=== PATIENT | female | born 1985 | race Caucasian/White ===

== ENCOUNTER 2016-10-17 22:21 | Inpatient (IN) | payer MEDICAID, SELFPAY ==
[~2016-10-17] VITALS: Ht 160 cm; Wt 56.6 kg
[~2016-10-17 22:21] MED LIST: IBUP80TA PO; NORCOTAB PO; SENO8.6T10 PO; SUBO8MIS SL; TYLE325T5 PO
[2016-10-18 02:20] LABS: BASO % 0.1 % (0.0-1.0); EOS % 0.6 % (0.0-3.0); LARGE UNSTAINED CELL # 0.2 K/mm3 (0.0-0.4); LARGE UNSTAINED CELL % 2.6 % (0.0-4.0); LYMPH # 1.2 K/mm3 (1.5-6.5); LYMPH % 15.8 % (24.0-44.0); MEAN CORPUSCULAR HEMOGLOBIN 22.9 pg (27.0-33.0); MEAN CORPUSCULAR HGB CONC 31.4 g/dl (32.0-36.5); MEAN CORPUSCULAR VOLUME 72.9 fl (80.0-96.0); MONO # 0.4 K/mm3 (0.0-0.8); MONO % 5.1 % (0.0-5.0); NEUTROPHILS # 5.7 K/mm3 (1.8-7.7); NEUTROPHILS % 75.8 % (36.0-66.0); PLATELET COUNT, AUTOMATED 146 k/mm3 (150-450); RED CELL DISTRIBUTION WIDTH 16.4 % (11.5-14.5); WHITE BLOOD COUNT 7.6 K/mm3 (4.0-10.0)
[2016-10-18 02:34] LABS: CONTROL LINE HCG INT CTR LINE PRESENT
[2016-10-18 02:38] LABS: ANION GAP 9 MEQ/L (8-16); BLOOD UREA NITROGEN 17 MG/DL (7-18); CALCIUM LEVEL 8.2 MG/DL (8.5-10.1); CARBON DIOXIDE LEVEL 28 MEQ/L (21-32); CHLORIDE LEVEL 104 MEQ/L (98-107); CREATININE FOR GFR 0.68 MG/DL (0.55-1.02); GLOMERULAR FILTRATION RATE > 60.0 (>60); GLUCOSE, FASTING 84 MG/DL (70-105); SODIUM LEVEL 141 MEQ/L (136-145)
[2016-10-18] MEDS ORDERED: KETOROLAC 30 MG/ML VIAL (J1885) As Ordered ONE (02:45)
[2016-10-18] MEDS ORDERED: ISOVUE-370 76% 100ML VIAL (Q9967) As Ordered ONE (04:06)
[2016-10-18] MEDS ORDERED: NALOXONE INJ 2 MG/2 ML SYRINGE (J2310) As Ordered ONE ×2 (04:26→04:32)
[2016-10-18] MEDS ORDERED: ZOSYN 3.375 GM VIAL (J2543) As Ordered ONE (05:05)
--- NOTE | 2016-10-18 05:20 | REPUSA ---
CLINICAL HISTORY: Posterior wall abscess. TECHNIQUE: Multiple axial CT images were obtained through chest with IV contrast material. MPR johnson l and sagittal sequences were obtained. COMMENTS: Bilateral basilar atelectatic pulmonary changes. There is no evidence of pleural or parenchymal mass. There are no pleural effusions. There is no evid ence of hilar or mediastinal lymphadenopathy. The heart and great vessels are within normal limits. The visualized portions of the liver are of uniform attenuation without mass or defect. There is no i ntra or extrahepatic biliary ductal dilatation. The spleen is unremarkable. The visualized pancreas i s of normal contour and attenuation characteristics. There is no evidence of adrenal mass. The visual ized portions of the kidneys present no abnormalities. The bony structures are free of lytic or blastic lesions. Multilevel degenerative changes are seen in volving the thoracic spine. Scattered calcifications are seen involving the aorta and visualized juaquin r branches compatible with atherosclerosis. No evidence for abnormal enhancement. IMPRESSION: Bilateral basilar atelectatic pulmonary changes. No abscess is seen. Thank you for your kind referral of this patient.
[2016-10-18] MEDS: NS 1,000 ML IV SCH ×3 (05:29→21:11)
[2016-10-18] MEDS ORDERED: ACETAMINOPHEN TAB 650MG DOSE (2X325MG) PO PRN (05:30)
[2016-10-18] MEDS ORDERED: LORazepam 2 MG/ML VIAL (J2060) IV PRN (06:00)
--- NOTE | 2016-10-18 06:29 | EDDOCDS ---
Physician Documentation [facility] Name: Kitty Marinelli Age: 30 yrs Sex: Female : 1985 Arrival Date: 10/17/2016 Time: 22:21 Bed 7 Private MD: Disposition: 10/18/16 05:23 Hospitalization ordered by Whit Barth for Inpatient Admission. Preliminary diagnosis are Cutaneous abscess of chest wall, Cutaneous abscess of left upper limb, Cutaneous abscess of right upper limb, Opioid abuse with intoxication. - Bed requested for [address] - Status is Inpatient Admission. lf1 - Condition is Stable. - Problem is an acute exacerbation. - Symptoms have improved. Historical: - Allergies: no known allergies; - Home Meds: 1. none - PMHx: drug addiction; - PSHx: Gastric Bypass; - Social history: Smoking status: Patient uses tobacco products, heavy tobacco smoker. No barriers to communication noted, The patient speaks fluent Yoruba. - Family history: Not pertinent. - : The pt / caregiver states he / she is not on anticoagulants. Home medication list is obtained from the patient. - Exposure Risk Screening:: None identified. 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 3 in. (160.02 cm) (R); Pain 10/10; 10/18 02:49 BP 103 / 65 (auto/); lf1 02:58 BP 100 / 69 (auto/); lf1 02:58 Pulse 60 MON; Pulse Ox 100% ; lf1 02:59 BP 116 / 9; Pulse 68; Resp 16; Temp 98.0(TE); Pulse Ox 100% on R/A; Pain 0/10; lf1 03:11 BP 103 / 68 (auto/); lf1 03:11 Pulse 70 MON; Pulse Ox 100% ; lf1 03:26 BP 103 / 68 (auto/); lf1 03:26 Pulse 78 MON; Pulse Ox 100% ; lf1 03:41 BP 91 / 56 (auto/); lf1 03:41 Pulse 76 MON; Resp 16; Pulse Ox 99% on R/A; lf1 03:56 BP 88 / 55 (auto/); lf1 03:56 Pulse 68 MON; Pulse Ox 99% ; lf1 04:11 BP 88 / 55 (auto/); lf1 04:11 Pulse 62 MON; lf1 04:55 BP 122 / 79 (auto/); lf1 04:56 Pulse 102 MON; Resp 16; Pain 0/10; lf1 05:35 Pulse 92 MON; Pulse Ox 100% ; lf1 05:36 BP 108 / 63 (auto/); lf1 05:58 Pulse 68 MON; Resp 16; Pulse Ox 100% on R/A; lf1 06:00 BP 114 / 71; Pulse 74; Temp 97.2(TE); lf1 10/17 22:24 Body Mass Index 22.32 (57.15 kg, 160.02 cm) rocio 10/17 22:24 UNABLE TO OBTAIN TEMPATURE DURING INTAKE PROCESS. STTEMPTED THREE TIMES rocio MDM: 10/18 01:19 -Blood Culture (Adults Only), peripheral from different site, or from device/port/PICC mm11 etc. if present ordered. 01:19 ketorolac 30 mg IVP once ordered. mm11 01:19 HIV Screen, Nursing ordered. mm11 01:19 CBC with Diff Ordered. EDMS 01:19 BMP Ordered. EDMS 01:19 CRP Ordered. EDMS 01:19 HCG,Serum Qualitative Ordered. EDMS 01:20 -Blood Culture Ordered. EDMS 01:23 -Blood Culture (Adults Only), peripheral from different site, or from device/port/PICC ml3 etc. if present complete. 01:24 BLOOD CULTURES Ordered. EDMS 02:22 CBC with Diff Reviewed. mm11 02:40 HCG,Serum Qualitative Reviewed. mm11 02:53 BMP Reviewed. mm11 02:53 CRP Reviewed. mm11 02:53 HCG,Serum Qualitative Reviewed. mm11 02:54 CT Chest With Contrast Ordered. EDMS 04:26 naloxone 2 mg IVP once ordered. mm11 04:42 Piperacillin-Tazobactam 3.375 grams IVPB once over 30 mins; dilute in 50mL of NS or D5W mm11 ordered. 04:44 BED REQUEST+ADM ordered. EDMS 04:48 Wound Culture - Other Unlisted Source Ordered. EDMS 05:02 vancomycin (loading dose for pt. wt. 50-59kg) 1250 mg IVPB once ordered. mm11 05:33 Admission / Observation Status ordered. EDMS 05:33 NPO DIET ordered. EDMS 05:39 Financial registration complete. hs2 05:44 [facility] Payment Agreement was scanned into [employer] and attached to record. hs2 05:49 ELECTROCARDIOGRAM ADULT ordered. EDMS 05:50 HIV 1&2 ANTIBODY SCREEN Ordered. EDMS 05:50 HEPATITIS PROFILE Ordered. EDMS Administered Medications: 02:54 Drug: ketorolac 30 mg [ketorolac 30 mg/mL (1 mL) injection solution (1 mL)] Route: IVP; lf1 Site: right upper arm; 04:58 Drug: naloxone 2 mg [naloxone 1 mg/mL injection syringe (2 mL)] Route: IVP; Site: right lf1 hand; 05:18 Drug: Piperacillin-Tazobactam 3.375 grams [piperacillin-tazobactam 3.375 gram lf1 intravenous solution] Route: IVPB; Infused Over: 30 mins; Site: right hand; 06:00 Not Given (MD discretion): vancomycin (loading dose for pt. wt. 50-59kg) 1250 mg IVPB tuan once Signatures: Dispatcher [employer] EDMS Joana Rosales RN RN mcp Lopresti, Mary-Elizabeth, Seedling Puller Unit ml3 Zainab Monroy RN RN lf1 Flakito Peterson, DO mm11 Tamara Kahn,RF ENGINEER RF ENGINEER cp1 Mecca Silveira, Reg Reg hs2 Estefany Chapman RN tuan The chart was reviewed and I authenticate all verbal orders and agree with the evaluation and treatment provided.Corrections: (The following items were deleted from the chart) 10/17 22:35 22:33 Home Meds: acetaminophen-codeine 300-30 mg oral tab 2 tabs every 4 hours mcp [Inactive]; mcp Attachments: 10/18 05:44 [facility] Payment Agreement hs2 MTDD
--- NOTE | 2016-10-18 06:29 | EDDOCDS ---
Nurse's Notes [facility] Name: Kitty Marinelli Age: 30 yrs Sex: Female : 1985 Arrival Date: 10/17/2016 Time: 22:21 Bed 7 Private MD: Diagnosis: Cutaneous abscess of chest wall;Cutaneous abscess of left upper limb;Cutaneous abscess of right upper limb;Opioid abuse with intoxication Presentation: 10/17 22:31 Presenting complaint: Patient states: Abscess on right arm and back from injecting mcp Linda. Adult Sepsis Screening: The patient does not have new or worsening altered mentation. Patient's respiratory rate is less than 22. Systolic blood pressure is greater than 100. Patient has a qSOFA score of 0- Negative Sepsis Screen. Suicide/Homicide risk assessment- the patient denies having any suicidal and/or homicidal ideations and does not present with any other emotional, behavioral or mental health complaints. Status: Patient is not a vp cardiovascular service line or dependent. Transition of care: patient was not received from another setting of care. 22:31 Acuity: PAULO Level 3 [facility] 22:31 Method Of Arrival: Walkin/Carried/Asstd [facility] Triage Assessment: 22:34 General: Appears uncomfortable, Behavior is cooperative. Pain: Location: back and right mcp arm Pain currently is 12 out of 10 on a pain scale. HIV screening NA for this visit Offered previously. Neurological: No deficits noted. Respiratory: Airway is patent Respiratory effort is even, unlabored. Derm: Skin is pink, warm & dry. Abscess located on back and right arm. 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 none - PMHx: drug addiction; - PSHx: Gastric Bypass; - Social history: Smoking status: Patient uses tobacco products, heavy tobacco smoker. No barriers to communication noted, The patient speaks fluent Kazakh. - Family history: Not pertinent. - : The pt / caregiver states he / she is not on anticoagulants. Home medication list is obtained from the patient. - Exposure Risk Screening:: None identified. Screenin/08 00:46 Screening information is obtained from the patient. Fall risk: No risks identified. lf1 Assistance ADL's: requires no assistance with activities of daily living. Nutritional screening: Pt reports recent weight loss related to drug use. 06:08 Abuse/DV Screen: Unable to Assess. Advance Directives: Unable to assess Advance lf1 Directive status due to pt condition. home support is inadequate. Assessment: 00:46 Adult Sepsis Screening: The patient does not have new or worsening altered mentation. lf1 Patient's respiratory rate is less than 22. Systolic blood pressure is greater than 100. Patient has a qSOFA score of 0- Negative Sepsis Screen. General: Appears slender, unkempt, Behavior is anxious. Pain: Location: left scapular area Pain currently is 10 out of 10 on a pain scale. Neurological: Level of Consciousness is awake, alert, Oriented to person, place, time. EENT: No deficits noted. Cardiovascular: Chest pain is denied. Respiratory: Respiratory effort is even, unlabored, Respiratory pattern is regular, Reports shortness of breath pain with respiration. GI: Reports weight loss Denies nausea, vomiting. Derm: abscess to left scapular area, draining copious amounts of yellow/brown drainage. Pt. reports pain with inspiration and shortness of breath. 01:45 General: Appears in no apparent distress, slender, unkempt, Behavior is drowsy. Pain: lf1 Location: left scapular area. Respiratory: Respiratory effort is even, unlabored. GI: Denies nausea, vomiting. 02:34 General: Appears in no apparent distress, slender, unkempt, Behavior is drowsy. Pain: lf1 Location: left scapular area Pain currently is 8 out of 10 on a pain scale. Neurological: Level of Consciousness is awake. Respiratory: Respiratory effort is even, unlabored. GI: Denies nausea, vomiting. : No deficits noted. Derm: 02:59 General: Appears in no apparent distress, Behavior is drowsy. Pain: Denies pain. lf1 Neurological: Level of Consciousness is Pt is arousable to shaking and loud noise, much more sedated than previous assessment. Provider aware. . Respiratory: Respiratory effort is even, unlabored. 03:30 General: Appears slender, unkempt, Behavior is drowsy. General: Provider advised that lf1 pt. appears to be sedated/obtunded and difficult to arouse. Vitals stable at this time. Pt. to have CT scan and then re- evaluate. . Neurological: Level of Consciousness is obtunded. 04:00 General: Center Machine Set Up Operator advised that pt. appears obtunded, level of consciousness decreased lf1 while in department, blood pressure decreased, pt. difficult to arouse. Belongings searched by two nurses to determine if pt. had substances she may have taken while in department. Numerous baggie's with white and brown powder residue found in pt. purse. . 04:58 General: Appears slender, unkempt, Behavior is drowsy. Pain: Denies pain. Neurological: lf1 Level of Consciousness is awake, alert. Respiratory: Respiratory effort is even, unlabored. GI: Denies nausea. Derm: abscess to left scapular area. 05:59 General: Appears in no apparent distress, Behavior is restless. Neurological: lf1 Respiratory: Respiratory effort is even, unlabored. Derm: abscess to left scapular area. 06:08 Adult Sepsis Screening: Patient has new or worsening altered mentation (1 point). lf1 Patient's respiratory rate is less than 22. Systolic blood pressure is greater than 100. Patient has a qSOFA score of 1- Negative Sepsis Screen. General: Appears slender, unkempt, Behavior is restless. Pain: Denies pain. Neurological: Level of Consciousness is obeys commands. EENT: No deficits noted. Cardiovascular: Rhythm is regular Chest pain is denied. Respiratory: Respiratory effort is even, unlabored. GI: Denies nausea, vomiting. Derm: abscess to left scapular area, multiple swollen red areas to BL UE. Pt with track sanders from drug use to BL UE. Vital Signs: 10/17 22:24 BP 107 / 72; Pulse 112; Resp 18; Pulse Ox 100% on R/A; Weight 57.15 kg (R); Height 5 rocio ft. 3 in. (160.02 cm) (R); Pain 10/10; 10/18 02:49 BP 103 / 65 (auto/); lf1 02:58 BP 100 / 69 (auto/); lf1 02:58 Pulse 60 MON; Pulse Ox 100% ; lf1 02:59 BP 116 / 9; Pulse 68; Resp 16; Temp 98.0(TE); Pulse Ox 100% on R/A; Pain 0/10; lf1 03:11 BP 103 / 68 (auto/); lf1 03:11 Pulse 70 MON; Pulse Ox 100% ; lf1 03:26 BP 103 / 68 (auto/); lf1 03:26 Pulse 78 MON; Pulse Ox 100% ; lf1 03:41 BP 91 / 56 (auto/); lf1 03:41 Pulse 76 MON; Resp 16; Pulse Ox 99% on R/A; lf1 03:56 BP 88 / 55 (auto/); lf1 03:56 Pulse 68 MON; Pulse Ox 99% ; lf1 04:11 BP 88 / 55 (auto/); lf1 04:11 Pulse 62 MON; lf1 04:55 BP 122 / 79 (auto/); lf1 04:56 Pulse 102 MON; Resp 16; Pain 0/10; lf1 05:35 Pulse 92 MON; Pulse Ox 100% ; lf1 05:36 BP 108 / 63 (auto/); lf1 05:58 Pulse 68 MON; Resp 16; Pulse Ox 100% on R/A; lf1 06:00 BP 114 / 71; Pulse 74; Temp 97.2(TE); lf1 10/17 22:24 Body Mass Index 22.32 (57.15 kg, 160.02 cm) rocio 10/17 22:24 UNABLE TO OBTAIN TEMPATURE DURING INTAKE PROCESS. STTEMPTED THREE TIMES rocio Vitals: 22:24 Log In Time: October 17, 2016 at 22:24. rocio 10/18 02:44 HIV Screen Result: Negative. 1 ED Course: 10/17 22:23 Patient visited by Estrellita Ferreira PCA. rocio 22:23 Patient moved to Waiting rocio 22:25 Patient moved to Pre RCE rocio 22:29 Patient moved to TR7 cz 22:31 Patient moved to Pre RCE mcp 22:32 Triage Initiated mcp 22:35 Patient visited by Jaona Rosales RN. mcp 22:40 Patient moved to TR8 cz 22:40 Patient moved to Pre RCE cz 10/18 00:27 Patient moved to Oct 00:46 The patient / caregiver is instructed regarding the plan of care and ED course. lf1 00:51 Patient visited by Estrellita Ferreira PCA. rocio 01:00 Inserted saline lock: 20 gauge in right upper arm. lf1 01:07 Flakito Peterson DO is Attending Physician. mm11 01:07 Patient visited by Flakito Peterson DO. mm11 01:17 Patient visited by Flakito Peterson DO. mm11 02:23 Patient visited by Germain Ly PCA. kb5 02:35 Patient visited by Zainab Monroy RN. lf1 02:44 Patient visited by Zainab Monroy RN. lf1 03:03 Patient visited by Zainab Monroy RN. lf1 04:15 Discontinued IV lock intact, bleeding controlled, pressure dressing applied, No lf1 redness/swelling at site. 04:26 Patient visited by Flakito Peterson DO. mm11 04:45 Missed attempts: 22 gauge in right hand. lf1 04:55 Whit Barth professor of public administration. ys2 04:57 Wound Culture - Other Unlisted Source Sent. lf1 05:02 Patient visited by Zainab Monroy RN. lf1 05:22 Whit Barth is Hospitalizing Provider. mm11 05:44 [facility] Payment Agreement was scanned into [employer] and attached to record. hs2 05:45 CT Chest With Contrast Returned. EDMS 06:08 No procedures done that require assistance. lf1 Administered Medications: 02:54 Drug: ketorolac 30 mg [ketorolac 30 mg/mL (1 mL) injection solution (1 mL)] Route: IVP; 1 Site: right upper arm; 04:58 Drug: naloxone 2 mg [naloxone 1 mg/mL injection syringe (2 mL)] Route: IVP; Site: right lf1 hand; 05:18 Drug: Piperacillin-Tazobactam 3.375 grams [piperacillin-tazobactam 3.375 gram [facility] intravenous solution] Route: IVPB; Infused Over: 30 mins; Site: right hand; 06:00 Not Given (MD discretion): vancomycin (loading dose for pt. wt. 50-59kg) 1250 mg IVPB tuan once Order Results: Lab Order: CBC with Diff; SPEC'M 10/18/16 02:07 Test: WHITE BLOOD COUNT; Value: 7.6; Range: 4.0-10.0; Units: K/mm3; Status: F Test: RED BLOOD COUNT; Value: 4.28; Range: 4.00-5.40; Units: M/mm3; Status: F Test: HEMOGLOBIN; Value: 9.8; Range: 12.0-16.0; Abnormal: Below low normal; Units: g/dl; Status: F Test: HEMATOCRIT; Value: 31.2; Range: 36.0-47.0; Abnormal: Below low normal; Units: %; Status: F Test: MEAN CORPUSCULAR VOLUME; Value: 72.9; Range: 80.0-96.0; Abnormal: Below low normal; Units: fl; Status: F Test: MEAN CORPUSCULAR HEMOGLOBIN; Value: 22.9; Range: 27.0-33.0; Abnormal: Below low normal; Units: pg; Status: F Test: MEAN CORPUSCULAR HGB CONC; Value: 31.4; Range: 32.0-36.5; Abnormal: Below low normal; Units: g/dl; Status: F Test: RED CELL DISTRIBUTION WIDTH; Value: 16.4; Range: 11.5-14.5; Abnormal: Above high normal; Units: %; Status: F Test: PLATELET COUNT, AUTOMATED; Value: 146; Range: 150-450; Abnormal: Below low normal; Units: k/mm3; Status: F Test: NEUTROPHILS %; Value: 75.8; Range: 36.0-66.0; Abnormal: Above high normal; Units: %; Status: F Test: LYMPH %; Value: 15.8; Range: 24.0-44.0; Abnormal: Below low normal; Units: %; Status: F Test: MONO %; Value: 5.1; Range: 0.0-5.0; Abnormal: Above high normal; Units: %; Status: F Test: EOS %; Value: 0.6; Range: 0.0-3.0; Units: %; Status: F Test: BASO %; Value: 0.1; Range: 0.0-1.0; Units: %; Status: F Test: LARGE UNSTAINED CELL %; Value: 2.6; Range: 0.0-4.0; Units: %; Status: F Test: NEUTROPHILS #; Value: 5.7; Range: 1.8-7.7; Units: K/mm3; Status: F Test: LYMPH #; Value: 1.2; Range: 1.5-6.5; Abnormal: Below low normal; Units: K/mm3; Status: F Test: MONO #; Value: 0.4; Range: 0.0-0.8; Units: K/mm3; Status: F Test: EOS #; Value: 0.0; Range: 0.0-0.50; Units: K/mm3; Status: F Test: BASO #; Value: 0.0; Range: 0.0-0.2; Units: K/mm3; Status: F Test: LARGE UNSTAINED CELL #; Value: 0.2; Range: 0.0-0.4; Units: K/mm3; Status: F Lab Order: BMP; SPEC'M 10/18/16 02:07 Test: GLUCOSE, FASTING; Value: 84; Range: 70-105; Units: MG/DL; Status: F Test: BLOOD UREA NITROGEN; Value: 17; Range: 7-18; Units: MG/DL; Status: F Test: CREATININE FOR GFR; Value: 0.68; Range: 0.55-1.02; Units: MG/DL; Status: F Test: SODIUM LEVEL; Range: 136-145; Units: MEQ/L; Status: I Test: POTASSIUM SERUM; Range: 3.5-5.1; Units: MEQ/L; Status: I Test: CHLORIDE LEVEL; Range: 98-107; Units: MEQ/L; Status: I Test: CARBON DIOXIDE LEVEL; Range: 21-32; Units: MEQ/L; Status: I Test: ANION GAP; Range: 8-16; Units: MEQ/L; Status: I Test: CALCIUM LEVEL; Range: 8.5-10.1; Units: MG/DL; Status: I Test: GLOMERULAR FILTRATION RATE; Value: > 60.0; Range: >60; Status: F Test: SODIUM LEVEL; Value: 141; Range: 136-145; Units: MEQ/L; Status: F Test: POTASSIUM SERUM; Value: 3.0; Range: 3.5-5.1; Abnormal: Below low normal; Units: MEQ/L; Status: F Test: CHLORIDE LEVEL; Value: 104; Range: 98-107; Units: MEQ/L; Status: F Test: CARBON DIOXIDE LEVEL; Value: 28; Range: 21-32; Units: MEQ/L; Status: F Test: ANION GAP; Value: 9; Range: 8-16; Units: MEQ/L; Status: F Test: CALCIUM LEVEL; Value: 8.2; Range: 8.5-10.1; Abnormal: Below low normal; Units: MG/DL; Status: F Test Note: ; Units are mL/min/1.73 m2 Chronic Kidney Disease Staging per NKF: Stage I & II GFR >=60 Normal to Mildly Decreased Stage III GFR 30-59 Moderately Decreased Stage IV GFR 15-29 Severely Decreased Stage V GFR <15 Very Little GFR Left ESRD GFR <15 on PAINTING 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 MPR johnson; l and sagittal sequences were obtained.; COMMENTS:; Bilateral basilar atelectatic pulmonary changes.; There is no evidence of pleural or parenchymal mass. There are no pleural effusions. There is no evid; ence of hilar or mediastinal lymphadenopathy. The heart and great vessels are within normal limits.; The visualized portions of the liver are of uniform attenuation without mass or defect. There is no i; ntra or extrahepatic biliary ductal dilatation. The spleen is unremarkable. The visualized pancreas i; s of normal contour and attenuation characteristics. There is no evidence of adrenal mass. The visual; ized portions of the kidneys present no abnormalities.; The bony structures are free of lytic or blastic lesions. Multilevel degenerative changes are seen in; volving the thoracic spine. Scattered calcifications are seen involving the aorta and visualized juaquin; r branches compatible with atherosclerosis.; No evidence for abnormal enhancement.; IMPRESSION:; Bilateral basilar atelectatic pulmonary changes.; No abscess is seen.; Thank you for your kind referral of this patient.; ; ; Outcome: 05:23 Decision to Hospitalize by Provider. mm11 06:08 Discharge Assessment: Patient awake, alert and oriented x 3. No cognitive and/or lf1 functional deficits noted. Patient verbalized understanding of disposition instructions. Admitted to Med/Surg accompanied by nurse, accompanied by tech, via stretcher, with chart. Condition: unchanged. CT Study completed. Property belongs bagged and given to staff. 06:27 Discharge Assessment: patient administered narcotics - no. The following High Risk lf1 Discharge criteria are identified: None. Admitted to Med/Surg. 06:27 Patient left the ED. lf1 Signatures: Dispatcher [employer] EDMS Estefany Chapman RN RN jan Peters, Mary, RN RN Henok Camp RN RN cz Bancroft, Kristopher, DRILLER'S ASSISTANT DRILLER'S ASSISTANT surjit5 Zaniab Monroy RN RN lf1 Flakito Peterson, DO mm11 Estrellita Ferreira, DRILLER'S ASSISTANT DRILLER'S ASSISTANT rocio Whit Barth ys2 Mecca Silveira, Reg Reg hs2 Corrections: (The following items were deleted from the chart) 10/17 22:35 22:33 Home Meds: acetaminophen-codeine 300-30 mg oral tab 2 tabs every 4 hours mcp [Inactive]; mcp MTDD
[2016-10-18 06:30] VITALS: BP 125/63
[2016-10-18] MEDS: HEPARIN SOD (PORCINE) 5000 UNITS/ML VIAL SC SCH ×3 (09:41→21:09)
--- NOTE | 2016-10-18 09:43 | HPE ---
DATE OF ADMISSION: 10/18/2016 ATTENDING PHYSICIAN: Whit Barth MD PRIMARY CARE PHYSICIAN: The patient does not have primary care physician. CHIEF COMPLAINT: Intravenous (IV) drug use, altered mental status, abscess. HISTORY OF PRESENT ILLNESS: Ms. Marinelli is a 30-year-old female with multiple past medical history who presented due to experiencing severe pain in the upper extremity, as well as posterior of the left shoulder due to possible abscess. The patient has an extended history of IV drug use. At the time when the patient was at the emergency room (ER), the patient used the IV lock site to inject herself. At the time of visit, the patient was lethargic and not able to answer questions. At the ER, the patient received one dose of ketorolac for pain control. According to the report, the patient has been using heroin. The patient's handbag was confiscated, and the drugs have been removed. However, the patient has a sitter at the room. ALLERGIES: No known allergies. HOME MEDICATIONS: - Tylenol 650 mg by mouth every 4 hours as needed pain - Compton two tablets by mouth every 6 hours as needed severe pain - Compton one tablet by mouth every 4 hours as needed moderate pain - Suboxone 1.5 mg sublingual daily - Senokot S one tablet by mouth twice a day as needed constipation - ibuprofen 800 mg by mouth every 6 hours as needed pain PAST MEDICAL HISTORY: 1. IV drug use. 2. Opioid addiction. 3. History of gastric bypass. 4. History of miscarriage. 5. History of biliary colic and gallstone. PAST SURGICAL HISTORY: Gastric bypass. SOCIAL HISTORY: Cannot be obtained due to the patient being lethargic and altered mental status. FAMILY HISTORY: Cannot be obtained due to the patient being lethargic and altered mental status. REVIEW OF SYSTEMS: Cannot be obtained due to the patient being lethargic and altered mental status. PHYSICAL EXAMINATION: VITAL SIGNS: Blood pressure 107/72, pulse 112, respiratory rate 18, temperature 98, pulse oximetry 100% on room air, weight 57.15 kg, height 160.02, body mass index (BMI) 22.32. GENERAL APPEARANCE: The patient is lethargic. The patient is not responding to vocal stimuli. However, the patient responded to the pain stimuli. HEENT: Normocephalic, atraumatic. Pupils are dilated. Oral mucosa is moist. NECK: Soft, supple. HEART: Tachycardia. Normal S1, S2. ABDOMEN: Soft. Positive bowel sounds in all quadrants. LUNGS: Clear to auscultation bilaterally. Good air movement. EXTREMITIES: No lower extremity edema. The patient has multiple lesions in her upper extremities, as well as abscess-type lesions, and the patient has one abscess which is draining on the posterior surface of her left shoulder. NEUROLOGICAL: Cranial nerves examination could not be done due to the patient being lethargic. LABORATORY DATA: White blood cells 7.6, red blood cells 4.28, hemoglobin 9.8, hematocrit 31.2, MCV 72.9, MCH 22.9, MCHC 31.4, RDW 16.4, platelet count 146, neutrophil percentage 75.8, lymphocyte percentage 15.8, monocyte percentage 5.1, eosinophil percentage 0.6, basophil percentage 0.1, leukocyte percentage 2.6. Sodium 141, potassium 3, chloride 104, carbon dioxide 28, anion gap 9, BUN 17, creatinine 0.67, glomerular filtration rate more than 60, fasting glucose 84, calcium 8.2, C-reactive protein 14.5, hCG negative. Blood culture is pending. Wound culture is pending. Chest CT with contrast, which shows bilateral basilar atelectatic pulmonary changes. No abscess is seen. ASSESSMENT AND PLAN: 1. Drug overdose. The patient has a long history of IV drug use. At this time, the patient is lethargic secondary to IV drug use. The patient's belonging has been searched, and her drugs have been removed. We have ordered a sitter in the room. We will continue monitoring the patient. Will make the patient nothing by mouth. For agitation, we have started the patient on normal saline at a rate of 100 mL per hour. The patient received two doses of Narcan 2 mg. However, the patient continues to be lethargic. For agitation, we have started the patient on Ativan 2 mg every 2 hour as needed IV. 2. Abscess. The patient has multiple abscesses in her upper extremities, as well as in her left posterior shoulder, which has been drained by ER and is sent for culture, as well as gram stain. At this time, we have started the patient on vancomycin and Zosyn. Blood culture is pending at this time. Also, we are checking the patient for hepatitis B, A, and C, as well as HIV, and the results are pending. 3. Opiate addiction. This is a chronic issue. 4. History of gastric bypass. CT of abdomen did not show any obstruction. At this time, the patient is stable. However, we will make the patient nothing by mouth due to the patient being lethargic to prevent aspiration. The patient has IV fluid. 5. Recent history of miscarriage in February 2015. This is a chronic issue. 6. History of biliary colic and gallstone. The CT that we had ordered did not show any concern regarding gallstone at this time. 7. Deep venous thrombosis (DVT) prophylaxis. The patient is on heparin 5000 units subcutaneous every 8. My preceptor for this patient encounter was Whit Barth MD. The preceptor was physically present in the building during the encounter and was fully available. As needed, all aspects of the patient interview, examination, medical decision making process, and medical care plan development were reviewed and approved by the preceptor. The preceptor is aware and concurs with the plan as stated in the body of this note and will attest to such by his/her cosignature.
[2016-10-18] MEDS: MEROPENEM INJ 2 GM in NS 100 ML IV SCH ×2 (10:21→17:44)
[2016-10-18] MEDS ORDERED: VANCOMYCIN HCL 500 MG in D5W MINI-BAG PLUS 100 ML IV ONE (11:00)
[2016-10-18 14:00] VITALS: BP 125/63
[2016-10-18] MEDS: VANCOMYCIN HCL 1,000 MG, VIAL MATE ADAPTER 1 EACH in D5W 250 ML IV SCH ×2 (14:21→15:41)
[2016-10-18] MEDS ORDERED: POTASSIUM CHLORIDE 10 MEQ SR TABLET PO ONE (15:15)
[2016-10-18] MEDS ORDERED: ONDANSETRON 4MG/2ML VIAL (J2405) IV PRN (15:15)
[2016-10-18] MEDS: FOLIC ACID 1 MG TAB PO SCH (15:39)
[2016-10-18] MEDS: METHADONE 5 MG TAB (S0109) PO SCH ×2 (15:40→21:10)
[2016-10-18] MEDS: THIAMINE 100 MG TAB PO SCH (15:41)
[2016-10-18] MEDS: NICOTINE 21MG/24HR 1 EA TRANSDERMAL TD SCH (15:41)
[2016-10-18] MEDS: LORazepam 2 MG TAB PO PRN (16:19)
--- NOTE | 2016-10-18 18:58 | CR ---
DATE OF CONSULTATION: 10/18/2016 REASON FOR CONSULTATION: Left upper back abscess. HISTORY OF PRESENT ILLNESS: The patient is a 30-year-old female with a history of intravenous (IV) drug abuse, has been to the emergency room recently for pain issues, had an IV site in place and used this for her heroin injections on her left arm. However, her abscess had developed on her left posterior shoulder and was "separate from this area." This has been draining for the last 24-36 hours and "it is better today than it was yesterday" and is less uncomfortable today, although she requires significant pain medications. PAST MEDICAL HISTORY: Her past medical history is significant for IV drug abuse, opioid addiction, history of gastric bypass, history of miscarriage, history of biliary colic and gallstones. MEDICATIONS: Include Tylenol, Kaufman, Suboxone, Senokot and ibuprofen. PHYSICAL EXAMINATION: Physical exam reveals a cachectic-appearing 30-year-old who looks much older than stated age. Her exam was limited to her back where she has an abscess that is draining adequately in her left upper back. There are three areas that are draining, all draining some purulent fluid. There is no significant cellulitis in this area with compression around the area. There is somewhat of an underlying pocket that seems to be decompressing adequately. She is tender enough that injection/debridement of this here at the bedside with be reasonable, and typically this would be treated as an outpatient with antibiotics and I would see her in the office for additional treatments, but given her high narcotic use, that it is reasonable to have her hospitalized for antibiotics at this point. IMPRESSION AND PLAN: The patient has an infection/abscess left upper back. May have been an infected sebaceous cyst, but at this point seems to be adequately draining. No need for further draining at this time. We will make some additional recommendations for dressing changes if it does not seem to be improving substantially by tomorrow. Otherwise, irrigating this with some peroxide on a daily basis will be reasonable after discharge with a dry dressing over the area, possibly warm soaks to help this decompress as well.
--- NOTE | 2016-10-18 21:39 | PHACANCOPD ---
PHARMACY VANCOMYCIN DOSING Pt Demographics Demographics Patient Age:30 , Weight:56.600 , Gender: female Adjusted Body Weight Date: 10/18/16, Adjusted Body Weight: Kg Events Past 24 Hours Events Past 24 Hours: NO: Change in CrCl, Dialysis, Diuretic Therapy, Elevation in WBC, Fever, Other, Pending Diagnostics, Pending Procedures Vancomycin Vancomycin indication: skin abscess Vancomycin Target Ranges: 15-20 mcg/ml Vancomycin Load Y/N: Yes Load Dose Date Time Vancomycin Load Dose: 1500mg Date: 10/18/16 Time: ~11:00 Vancomycin Dose Date: 10/18/16. Current Vancomycin Dose: [1g IV q8h @14] Intermittent Dosing?: No Labs Labs Item Value Date Time White Blood Count 7.6 K/mm3 10/18/16 0207 Creatinine 0.68 MG/DL 10/18/16 0207 C-Reactive Protein, Quantitative 14.50 MG/DL H 10/18/16 0207 Micro Microbiology 10/18/16 Blood Culture, Received Pending 10/18/16 Blood Culture, Received Pending 10/18/16 Wound Culture, Worksheet Pending Creatinine Clearance Date:10/18/16. Creatinine Clearance: [>100 ml/min]. Pending Labs Vanco trough scheduled 10/19 @13:00 Assessment and Plan Maintaining Current Dose?: Yes Reason for dose change: No Dose Change Pharmacist Note Pharmacist Note Date: 10/18/16. Pharmacist note: pt was admitted for an upper back abscess, likely an infected cyst, for which she was started on Meropenem and Vancomycin . Pt is also an IVDU, she used her IV site to inject heroin in the ER this morning. She has not been on vancomycin at our facility in the past and does not have a hx of MRSA. I have given her a 1500mg load and started 1g IV q8h. I have ordered a trough before the 4th dose due to her small/cachetic state. Blood and wound cultures are pending. We will continue to monitor. Bulmaro Mcrae Pharm.D. Oct 18, 2016 21:39
[2016-10-18 22:00] VITALS: BP 119/62
[2016-10-19] MEDS: MEROPENEM INJ 2 GM in NS 100 ML IV SCH ×3 (00:55→18:59)
[2016-10-19] MEDS: LORazepam 2 MG TAB PO PRN ×4 (00:55→22:24)
[2016-10-19] MEDS: HEPARIN SOD (PORCINE) 5000 UNITS/ML VIAL SC SCH ×4 (05:22→22:00)
[2016-10-19] MEDS: VANCOMYCIN HCL 1,000 MG, VIAL MATE ADAPTER 1 EACH in D5W 250 ML IV SCH ×3 (05:22→21:48)
[2016-10-19 06:00] VITALS: BP 112/56
[2016-10-19 07:17] LABS: MEAN CORPUSCULAR HEMOGLOBIN 22.9 pg (27.0-33.0); MEAN CORPUSCULAR HGB CONC 31.4 g/dl (32.0-36.5); MEAN CORPUSCULAR VOLUME 72.9 fl (80.0-96.0); PLATELET COUNT, AUTOMATED 197 k/mm3 (150-450); RED CELL DISTRIBUTION WIDTH 16.3 % (11.5-14.5); WHITE BLOOD COUNT 5.6 K/mm3 (4.0-10.0)
[2016-10-19 07:37] LABS: MICROCYTOSIS 2+
[2016-10-19 07:47] LABS: ALBUMIN 2.3 GM/DL (3.2-5.2); ALBUMIN/GLOBULIN RATIO 0.72 (1.00-1.93); ALKALINE PHOSPHATASE 60 U/L (45-117); ALT/SGPT 16 U/L (12-78); ANION GAP 7 MEQ/L (8-16); AST/SGOT 30 U/L (15-37); BILIRUBIN,TOTAL 0.4 MG/DL (0.2-1.0); BLOOD UREA NITROGEN 19 MG/DL (7-18); CALCIUM LEVEL 7.6 MG/DL (8.5-10.1); CARBON DIOXIDE LEVEL 27 MEQ/L (21-32); CHLORIDE LEVEL 110 MEQ/L (98-107); CREATININE FOR GFR 0.75 MG/DL (0.55-1.02); GLOMERULAR FILTRATION RATE > 60.0 (>60); GLUCOSE, FASTING 93 MG/DL (70-105); POTASSIUM SERUM 3.5 MEQ/L (3.5-5.1); SODIUM LEVEL 144 MEQ/L (136-145); TOTAL PROTEIN 5.5 GM/DL (6.4-8.2)
[2016-10-19 08:59] LABS: CONTROL LINE INT CTR LINE PRESENT; HIV SCRN NEGATIVE (NEGATIVE); HIV SCRN1 NEGATIVE (NEGATIVE)
[2016-10-19] MEDS: NICOTINE 21MG/24HR 1 EA TRANSDERMAL TD SCH (09:20)
[2016-10-19] MEDS: FOLIC ACID 1 MG TAB PO SCH (09:21)
[2016-10-19] MEDS: THIAMINE 100 MG TAB PO SCH (09:21)
[2016-10-19] MEDS: METHADONE 5 MG TAB (S0109) PO SCH ×4 (09:22→21:57)
--- NOTE | 2016-10-19 09:48 | IPN ---
DATE OF DICTATION: 10/18/2016 Ms. Marinelli was initially responsive only to painful stimuli. When I saw her later in the day around 1:30, she was more awake requesting food. Says that she would like to pursue inpatient rehabilitation. Says that she has relapsed after being clean for some time. Is worried about HIV and hepatitis C. Temperature 97.4, pulse 70, respirations 18, blood pressure 125/63, 99% on room air. Input and output notable for a negative fluid status -200. She is awake, appropriately interactive. Seems anxious. Extremities are tacky. Neck is supple. There is a draining lesion on her left posterior shoulder from which has expressed approximately 100 mL of mucoid drainage. Heart: Regular rate and rhythm, I appreciate no murmur. Abdomen: Soft, doughy, nontender. White cell count 7.6, potassium 3.0. ASSESSMENT: This is a 30-year-old with left posterior shoulder abscess and heroine overdose. PLAN: 1. Abscess. Patient on broad spectrum antibiotics, awaiting wound culture from that as well as blood cultures. I suspect blood cultures to be negative. Continue antibiotics as ordered. 2. Patient has ongoing history of heroine use with relapse. Would like inpatient rehabilitation. Is worried about her withdrawal symptoms. At this time, I am starting a low dose of methadone as well as Ativan as well as Zofran for symptomatic relief of nausea. Also starting some vitamin supplementation. 3. The patient is a smoker. I have ordered a nicotine patch. 4. Patient has a history of gastric bypass. She has no abdominal pain and diet can be advanced. 5. Deep venous thrombosis (DVT) prophylaxis ordered.
[2016-10-19] MEDS: NS 1,000 ML IV SCH (11:29)
[2016-10-19] MEDS ORDERED: KETOROLAC 30 MG/ML VIAL (J1885) IV PRN (13:00)
[2016-10-19 14:00] VITALS: BP 115/74
--- NOTE | 2016-10-19 15:19 | PHACANCOPD ---
PHARMACY VANCOMYCIN DOSING Pt Demographics Demographics Patient Age:30 , Weight:56.600 , Gender: female Adjusted Body Weight Date: 10/18/16, Adjusted Body Weight: Kg Vancomycin Vancomycin indication: skin abscess Vancomycin Target Ranges: 15-20 mcg/ml Vancomycin Load Y/N: Yes Load Dose Date Time Vancomycin Load Dose: 1500mg Date: 10/18/16 Time: ~11:00 Vancomycin Dose Date: 10/18/16. Current Vancomycin Dose: [1g IV q8h @14] Intermittent Dosing?: No Labs Micro Microbiology 10/18/16 Blood Culture - Preliminary, Resulted No growth after 24 hours . All specim... 10/18/16 Blood Culture - Preliminary, Resulted No growth after 24 hours . All specim... 10/18/16 Wound Culture, Worksheet Pending Creatinine Clearance Date:10/18/16. Creatinine Clearance: [>100 ml/min]. Pending Labs Vanco trough scheduled 10/19 @13:00 Assessment and Plan Maintaining Current Dose?: Yes Reason for dose change: No Dose Change Pharmacist Note Pharmacist Note 10/19/16: Vanco trough today resulted @ 9.4. Upon review, two 1g doses were given blmp-[id number], 1 hour apart vs the Q8H schedule - with the next 1g dose given ~ 15 hours later. Therefore, this level is not reflective of a true trough. I will schedule another trough to be drawn tomorrow 10/20/16 @ 1300. We will continue to monitor and make further dose adjustments as needed. Date: 10/18/16. Pharmacist note: pt was admitted for an upper back abscess, likely an infected cyst, for which she was started on Meropenem and Vancomycin . Pt is also an IVDU, she used her IV site to inject heroin in the ER this morning. She has not been on vancomycin at our facility in the past and does not have a hx of MRSA. I have given her a 1500mg load and started 1g IV q8h. I have ordered a trough before the 4th dose due to her small/cachetic state. Blood and wound cultures are pending. We will continue to monitor. JOYCE IBANEZ PHARMACY Oct 19, 2016 15:19
--- NOTE | 2016-10-19 17:21 | IPN ---
DATE: 10/19/2016 Ms. Marinelli is complaining of some discomfort in her left shoulder. No chest pain. No shortness of breath. Does feel somewhat anxious. Temperature is 97.5, pulse 78, respiratory rate 18, blood pressure 112/56, 99% on room air. Input and output notable for a positive fluid balance of 450, 1 liter of urine out yesterday. She is awake, appropriately interactive. Pupils are mid range and reactive. Mucous membranes are moist. Neck is supple. There is no piloerection. There is no tremor. Heart has regular rate and rhythm, not tachycardic. Abdomen is soft, doughy, nontender. Left shoulder wound is completely dressed. Hypoactive bowel sounds. White cell count 5.6, hemoglobin 10.1, platelets of 97. BUN 19, creatinine 0.75, C-reactive protein is improved to 6.52. ASSESSMENT: This is a 30-year-old with left posterior shoulder abscess and heroin overdoses, currently is in withdrawal. PLAN: 1. Abscess. The patient is on broad spectrum antibiotics, awaiting wound culture, which is still pending. I have discussed this case in person with Dr. Pathak, who is following. Antibiotics are continued as ordered. 2. The patient has an ongoing history of heroin use with relapse. She did take an unintentional overdose in the emergency department. She does currently have a sitter. She is on methadone, which can likely be weaned tomorrow, as well as Ativan for withdrawal. She has been receiving Zofran for nausea as needed. I did start vitamin supplementation. 3. The patient is a smoker and currently has a nicotine patch on. 4. The patient has a history of gastric bypass. 5. The patient has appropriate deep vein thrombosis (DVT) prophylaxis. Plan is for possible placement in an inpatient rehabilitation program if that is at all feasible, otherwise she has been following with [facility], and I discussed the case with Aristeo Espino at [facility], [phone]. Dr. Espino has no record of caring for this patient.
[2016-10-19 22:00] VITALS: BP 114/72
[2016-10-20] MEDS: NS 1,000 ML IV SCH ×3 (02:13→17:29)
[2016-10-20] MEDS: MEROPENEM INJ 2 GM in NS 100 ML IV SCH ×2 (02:13→11:15)
[2016-10-20] MEDS: HEPARIN SOD (PORCINE) 5000 UNITS/ML VIAL SC SCH ×3 (05:48→21:53)
[2016-10-20] MEDS: VANCOMYCIN HCL 1,000 MG, VIAL MATE ADAPTER 1 EACH in D5W 250 ML IV SCH ×3 (05:53→21:54)
[2016-10-20 06:00] VITALS: BP 113/68
[2016-10-20 06:53] LABS: BASO % 0.2 % (0.0-1.0); EOS % 0.7 % (0.0-3.0); LARGE UNSTAINED CELL # 0.1 K/mm3 (0.0-0.4); LARGE UNSTAINED CELL % 2.5 % (0.0-4.0); LYMPH # 1.6 K/mm3 (1.5-6.5); LYMPH % 28.4 % (24.0-44.0); MEAN CORPUSCULAR HEMOGLOBIN 23.4 pg (27.0-33.0); MEAN CORPUSCULAR HGB CONC 31.7 g/dl (32.0-36.5); MEAN CORPUSCULAR VOLUME 73.7 fl (80.0-96.0); MONO # 0.3 K/mm3 (0.0-0.8); MONO % 5.9 % (0.0-5.0); NEUTROPHILS # 3.5 K/mm3 (1.8-7.7); NEUTROPHILS % 62.3 % (36.0-66.0); PLATELET COUNT, AUTOMATED 207 k/mm3 (150-450); RED CELL DISTRIBUTION WIDTH 16.3 % (11.5-14.5); WHITE BLOOD COUNT 5.6 K/mm3 (4.0-10.0)
[2016-10-20 07:35] LABS: ALBUMIN 2.2 GM/DL (3.2-5.2); ALBUMIN/GLOBULIN RATIO 0.65 (1.00-1.93); ALKALINE PHOSPHATASE 57 U/L (45-117); ALT/SGPT 12 U/L (12-78); ANION GAP 8 MEQ/L (8-16); AST/SGOT 26 U/L (15-37); BILIRUBIN,TOTAL 0.3 MG/DL (0.2-1.0); BLOOD UREA NITROGEN 12 MG/DL (7-18); CALCIUM LEVEL 7.5 MG/DL (8.5-10.1); CARBON DIOXIDE LEVEL 27 MEQ/L (21-32); CHLORIDE LEVEL 109 MEQ/L (98-107); CREATININE FOR GFR 0.64 MG/DL (0.55-1.02); GLOMERULAR FILTRATION RATE > 60.0 (>60); GLUCOSE, FASTING 81 MG/DL (70-105); POTASSIUM SERUM 3.2 MEQ/L (3.5-5.1); SODIUM LEVEL 144 MEQ/L (136-145); TOTAL PROTEIN 5.6 GM/DL (6.4-8.2)
--- NOTE | 2016-10-20 07:39 | ECGEPIP ---
Stationary ECG Study [facility] Test Date: 2016-10-18 Pat Name: CRISTY FORTUNE Department: Room: [place] [address] Gender: F Land[place] Scaler: : 1985 Requested By: EVENS MADDOX Order Number: [id number] Reading MD: Chintan Shrestha Measurements Intervals Chana Rate: 56 P: 77 MA: 138 QRS: 29 QRSD: 98 T: 51 QT: 453 QTc: 438 Interpretive Statements SINUS BRADYCARDIA Electronically Signed On 10-20-2016 7:38:29 EST by Chintan Shrestha
[2016-10-20] MEDS: NICOTINE 21MG/24HR 1 EA TRANSDERMAL TD SCH (08:41)
[2016-10-20] MEDS: LORazepam 2 MG TAB PO PRN ×2 (08:42→14:40)
[2016-10-20] MEDS: FOLIC ACID 1 MG TAB PO SCH (08:42)
[2016-10-20] MEDS: METHADONE 5 MG TAB (S0109) PO SCH ×3 (08:42→21:53)
[2016-10-20] MEDS: THIAMINE 100 MG TAB PO SCH (08:42)
--- NOTE | 2016-10-20 11:59 | IPNPDOC ---
Assessment/Plan Date Seen The patient was seen on 10/20/16. Problems Problems: (1) Abscess Status: Acute Response to Treatment: Improving Discussed With: Belting Cutter, Patient Problem Specific Plan: Consult Specialist, Monitor Clinically, Repeat Labs Problem Text: Appears to be improving. Cultures/sensitivities noted. Anticipating discharge with PO antibiotics. Discuss further with surgery regarding appropriate discharge antibiotics. Currently receiving IV Vanco and meropenem. DC Meropenem. (2) Nicotine abuse Status: Acute Discussed With: Patient Problem Specific Plan: Monitor Clinically Problem Text: Nicotine replacement therapy. (3) H/O gastric bypass Status: Chronic Response to Treatment: Stable Discussed With: Patient Problem Specific Plan: Monitor Clinically (4) Heroin abuse Status: Chronic Discussed With: Patient Problem Specific Plan: Consult Specialist, Monitor Clinically Problem Text: continue with 1:1 sitter given illicit drug use while in the ER. Patient states she is schedule for follow up with [facility] on Wednesday? Methadone and continue ativan as needed. Plan / VTE VTE Prophylaxis Ordered?: Yes (Heparin SC) Plan Diet: Continue Current Activity: Continue Current Medications: Replete Electrolytes PO Diagnostics: Repeat Labs in AM Anticipated Discharge: Other Anticipated D/C (drug rehab) Subjective Review of Systems CC/HPI The patient is a 30-year-old female admitted with a reason for visit of Altered Mental Status,Heroin Abuse. General: Denies: Chills, Fatigue, Malaise, Night Sweats, Normal Appetite, Other Symptoms, ROS Unobtainable Constitutional: Denies: Chills, Fatigue, Fever, Lethargy, Malaise, Night Sweats , Other, Weakness, Weight Loss Eyes: Denies: Conjunctivae inflammation, Eyelid inflammation, Other, Pain, Redness, Vision change ENT: Denies: Dysphagia, Ear Pain, Epistaxis, Head Aches, Other Symptoms, Post Nasal Drip, Sinus Congestion, Sore Throat Skin: Denies: Breakdown, Bruising, Dry, Itching, Jaundice, Lesions, Nail Changes, Other, Rash Pulmonary: Denies: Cough, Dyspnea, Other Symptoms, Pleuritic Chest Pain Cardiovascular: Denies: Chest Pain, Edema, Lt Headedness, Orthopnea, Other Symptoms, Palpitations, Paroxysmal Noc. Dyspnea Gastrointestinal: Denies: Abdominal Pain, Constipation, Diarrhea, Hematochezia , Melena, Nausea, Other Symptoms, Vomiting Genitourinary: Denies: Dysuria, Frequency, Hematuria, Incontinence, Other Symptoms, Retention Objective Physical Examination General Exam: Positive: Alert, Cooperative, No Acute Distress Eye Exam: Positive: Conjunctiva & lids normal, PERRLA ENT Exam: Positive: Atraumatic Neck Exam: Positive: Supple Chest Exam: Positive: Clear to auscultation, Normal air movement Heart Exam: Positive: Rate Normal, Regular Rhythm Telemetry: Positive: No significant arrhythmia Abdomen Exam: Positive: Normal bowel sounds, Soft, Negative: Tenderness Extremity Exam: Negative: Edema Psych Exam: Positive: Oriented x 3 Vital Signs/I&O Vital Signs Date Time Temp Pulse Resp B/P Pulse Ox O2 Delivery O2 Flow Rate FiO2 10/20/16 08:42 16 10/20/16 06:00 97.2 84 113/68 96 Room Air I&O- Last 24 Hours up to 6 AM 10/20/16 06:00 Intake Total 3422 ml Output Total 1950 ml Balance 1472 ml Laboratory Data Labs 24H Laboratory Tests 2 10/19/16 12:55: Vancomycin Level Trough 9.4L 10/20/16 05:48: Blood Urea Nitrogen 12, Creatinine 0.64, Sodium Level 144, Potassium Level 3.2L , Chloride Level 109H, Carbon Dioxide Level 27, Calcium Level 7.5L, Aspartate Amino Transf (AST/SGOT) 26, Alanine Aminotransferase (ALT/SGPT) 12, Alkaline Phosphatase 57, Total Bilirubin 0.3, Total Protein 5.6L, Albumin 2.2L, Albumin/ Globulin Ratio 0.65L, Anion Gap 8, White Blood Count 5.6, Red Blood Count 4.26, Hemoglobin 10.0L, Hematocrit 31.4L, Mean Corpuscular Volume 73.7L, Mean Corpuscular Hemoglobin 23.4L, Mean Corpuscular Hemoglobin Concent 31.7L, Red Cell Distribution Width 16.3H, Platelet Count 207, Neutrophils (%) (Auto) 62.3, Lymphocytes (%) (Auto) 28.4, Monocytes (%) (Auto) 5.9H, Eosinophils (%) (Auto) 0.7, Basophils (%) (Auto) 0.2, Neutrophils # (Auto) 3.5, Lymphocytes # (Auto) 1.6, Monocytes # (Auto) 0.3, Eosinophils # (Auto) 0.0, Basophils # (Auto) 0.0, C -Reactive Protein, Quantitative 2.43H, Glomerular Filtration Rate > 60.0, Large Unclassified Cells # 0.1, Large Unclassified Cells % 2.5, Magnesium Level 2.0 CBC/BMP Laboratory Tests 10/20/16 05:48 Calcium Level 7.5 L, Aspartate Amino Transf (AST/SGOT) 26, Alanine Aminotransferase (ALT/SGPT) 12, Alkaline Phosphatase 57, Total Bilirubin 0.3, Total Protein 5.6 L, Albumin 2.2 L, Red Blood Count 4.26, Mean Corpuscular Volume 73.7 L, Mean Corpuscular Hemoglobin 23.4 L, Mean Corpuscular Hemoglobin Concent 31.7 L, Red Cell Distribution Width 16.3 H, Neutrophils (%) (Auto) 62.3 , Lymphocytes (%) (Auto) 28.4, Monocytes (%) (Auto) 5.9 H, Eosinophils (%) (Auto ) 0.7, Basophils (%) (Auto) 0.2, Neutrophils # (Auto) 3.5, Lymphocytes # (Auto) 1.6, Monocytes # (Auto) 0.3, Eosinophils # (Auto) 0.0, Basophils # (Auto) 0.0 Microbiology Microbiology 10/18/16 Blood Culture - Preliminary, Resulted No Growth after 48 hours. All Specime... 10/18/16 Blood Culture - Preliminary, Resulted No Growth after 48 hours. All Specime... 10/18/16 Wound Culture - Final, Complete Staphylococcus Aureus MARIAH LAY MD Oct 20, 2016 11:59
[2016-10-20] MEDS ORDERED: POTASSIUM CHLORIDE 10 MEQ SR TABLET PO ONE (12:00)
--- NOTE | 2016-10-20 12:31 | EDDOCDS ---
Nurse's Notes [facility] Name: Kitty Marinelli Age: 30 yrs Sex: Female : 1985 Arrival Date: 10/17/2016 Time: 22:21 Bed 7 Private MD: Diagnosis: Cutaneous abscess of chest wall;Cutaneous abscess of left upper limb;Cutaneous abscess of right upper limb;Opioid abuse with intoxication Presentation: 10/17 22:31 Presenting complaint: Patient states: Abscess on right arm and back from injecting mcp Linda. Adult Sepsis Screening: The patient does not have new or worsening altered mentation. Patient's respiratory rate is less than 22. Systolic blood pressure is greater than 100. Patient has a qSOFA score of 0- Negative Sepsis Screen. Suicide/Homicide risk assessment- the patient denies having any suicidal and/or homicidal ideations and does not present with any other emotional, behavioral or mental health complaints. Status: Patient is not a retail service representative or dependent. Transition of care: patient was not received from another setting of care. 22:31 Acuity: PAULO Level 3 [facility] 22:31 Method Of Arrival: Walkin/Carried/Asstd [facility] Triage Assessment: 22:34 General: Appears uncomfortable, Behavior is cooperative. Pain: Location: back and right mcp arm Pain currently is 12 out of 10 on a pain scale. HIV screening NA for this visit Offered previously. Neurological: No deficits noted. Respiratory: Airway is patent Respiratory effort is even, unlabored. Derm: Skin is pink, warm & dry. Abscess located on back and right arm. 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 none - PMHx: drug addiction; - PSHx: Gastric Bypass; - Social history: Smoking status: Patient uses tobacco products, heavy tobacco smoker. No barriers to communication noted, The patient speaks fluent Malawian. - Family history: Not pertinent. - : The pt / caregiver states he / she is not on anticoagulants. Home medication list is obtained from the patient. - Exposure Risk Screening:: None identified. Screenin/08 00:46 Screening information is obtained from the patient. Fall risk: No risks identified. lf1 Assistance ADL's: requires no assistance with activities of daily living. Nutritional screening: Pt reports recent weight loss related to drug use. 06:08 Abuse/DV Screen: Unable to Assess. Advance Directives: Unable to assess Advance lf1 Directive status due to pt condition. home support is inadequate. Assessment: 00:46 Adult Sepsis Screening: The patient does not have new or worsening altered mentation. lf1 Patient's respiratory rate is less than 22. Systolic blood pressure is greater than 100. Patient has a qSOFA score of 0- Negative Sepsis Screen. General: Appears slender, unkempt, Behavior is anxious. Pain: Location: left scapular area Pain currently is 10 out of 10 on a pain scale. Neurological: Level of Consciousness is awake, alert, Oriented to person, place, time. EENT: No deficits noted. Cardiovascular: Chest pain is denied. Respiratory: Respiratory effort is even, unlabored, Respiratory pattern is regular, Reports shortness of breath pain with respiration. GI: Reports weight loss Denies nausea, vomiting. Derm: abscess to left scapular area, draining copious amounts of yellow/brown drainage. Pt. reports pain with inspiration and shortness of breath. 01:45 General: Appears in no apparent distress, slender, unkempt, Behavior is drowsy. Pain: lf1 Location: left scapular area. Respiratory: Respiratory effort is even, unlabored. GI: Denies nausea, vomiting. 02:34 General: Appears in no apparent distress, slender, unkempt, Behavior is drowsy. Pain: lf1 Location: left scapular area Pain currently is 8 out of 10 on a pain scale. Neurological: Level of Consciousness is awake. Respiratory: Respiratory effort is even, unlabored. GI: Denies nausea, vomiting. : No deficits noted. Derm: 02:59 General: Appears in no apparent distress, Behavior is drowsy. Pain: Denies pain. lf1 Neurological: Level of Consciousness is Pt is arousable to shaking and loud noise, much more sedated than previous assessment. Provider aware. . Respiratory: Respiratory effort is even, unlabored. 03:30 General: Appears slender, unkempt, Behavior is drowsy. General: Provider advised that lf1 pt. appears to be sedated/obtunded and difficult to arouse. Vitals stable at this time. Pt. to have CT scan and then re- evaluate. . Neurological: Level of Consciousness is obtunded. 04:00 General: Crane Ladle Person advised that pt. appears obtunded, level of consciousness decreased lf1 while in department, blood pressure decreased, pt. difficult to arouse. Belongings searched by two nurses to determine if pt. had substances she may have taken while in department. Numerous baggie's with white and brown powder residue found in pt. purse. . 04:58 General: Appears slender, unkempt, Behavior is drowsy. Pain: Denies pain. Neurological: lf1 Level of Consciousness is awake, alert. Respiratory: Respiratory effort is even, unlabored. GI: Denies nausea. Derm: abscess to left scapular area. 05:59 General: Appears in no apparent distress, Behavior is restless. Neurological: lf1 Respiratory: Respiratory effort is even, unlabored. Derm: abscess to left scapular area. 06:08 Adult Sepsis Screening: Patient has new or worsening altered mentation (1 point). lf1 Patient's respiratory rate is less than 22. Systolic blood pressure is greater than 100. Patient has a qSOFA score of 1- Negative Sepsis Screen. General: Appears slender, unkempt, Behavior is restless. Pain: Denies pain. Neurological: Level of Consciousness is obeys commands. EENT: No deficits noted. Cardiovascular: Rhythm is regular Chest pain is denied. Respiratory: Respiratory effort is even, unlabored. GI: Denies nausea, vomiting. Derm: abscess to left scapular area, multiple swollen red areas to BL UE. Pt with track sanders from drug use to BL UE. Vital Signs: 10/17 22:24 BP 107 / 72; Pulse 112; Resp 18; Pulse Ox 100% on R/A; Weight 57.15 kg (R); Height 5 rocio ft. 3 in. (160.02 cm) (R); Pain 10/10; 10/18 02:49 BP 103 / 65 (auto/); lf1 02:58 BP 100 / 69 (auto/); lf1 02:58 Pulse 60 MON; Pulse Ox 100% ; lf1 02:59 BP 116 / 9; Pulse 68; Resp 16; Temp 98.0(TE); Pulse Ox 100% on R/A; Pain 0/10; lf1 03:11 BP 103 / 68 (auto/); lf1 03:11 Pulse 70 MON; Pulse Ox 100% ; lf1 03:26 BP 103 / 68 (auto/); lf1 03:26 Pulse 78 MON; Pulse Ox 100% ; lf1 03:41 BP 91 / 56 (auto/); lf1 03:41 Pulse 76 MON; Resp 16; Pulse Ox 99% on R/A; lf1 03:56 BP 88 / 55 (auto/); lf1 03:56 Pulse 68 MON; Pulse Ox 99% ; lf1 04:11 BP 88 / 55 (auto/); lf1 04:11 Pulse 62 MON; lf1 04:55 BP 122 / 79 (auto/); lf1 04:56 Pulse 102 MON; Resp 16; Pain 0/10; lf1 05:35 Pulse 92 MON; Pulse Ox 100% ; lf1 05:36 BP 108 / 63 (auto/); lf1 05:58 Pulse 68 MON; Resp 16; Pulse Ox 100% on R/A; lf1 06:00 BP 114 / 71; Pulse 74; Temp 97.2(TE); lf1 10/17 22:24 Body Mass Index 22.32 (57.15 kg, 160.02 cm) rocio 10/17 22:24 UNABLE TO OBTAIN TEMPATURE DURING INTAKE PROCESS. STTEMPTED THREE TIMES rocio Vitals: 22:24 Log In Time: October 17, 2016 at 22:24. rocio 10/18 02:44 HIV Screen Result: Negative. 1 ED Course: 10/17 22:23 Patient visited by Estrellita Ferreira PCA. rocio 22:23 Patient moved to Waiting rocio 22:25 Patient moved to Pre RCE rocio 22:29 Patient moved to TR7 cz 22:31 Patient moved to Pre RCE mcp 22:32 Triage Initiated mcp 22:35 Patient visited by Joana Rosales RN. mcp 22:40 Patient moved to TR8 cz 22:40 Patient moved to Pre RCE cz 10/18 00:27 Patient moved to Oct 00:46 The patient / caregiver is instructed regarding the plan of care and ED course. lf1 00:51 Patient visited by Estrellita Ferreira PCA. rocio 01:00 Inserted saline lock: 20 gauge in right upper arm. lf1 01:07 Flakito Peterson DO is Attending Physician. mm11 01:07 Patient visited by Flakito Peterson DO. mm11 01:17 Patient visited by Flakito Peterson DO. mm11 02:23 Patient visited by Germain Ly, MOIZ. kb5 02:35 Patient visited by Zainab Monroy RN. lf1 02:44 Patient visited by Zainab Monroy RN. lf1 03:03 Patient visited by Zainab Monroy RN. lf1 04:15 Discontinued IV lock intact, bleeding controlled, pressure dressing applied, No lf1 redness/swelling at site. 04:26 Patient visited by Flakito Peterson DO. mm11 04:45 Missed attempts: 22 gauge in right hand. 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 ys2 04:57 Wound Culture - Other Unlisted Source Sent. lf1 05:02 Patient visited by Zainab Monroy RN. lf1 05:22 Whit Barth is Hospitalizing Provider. mm11 05:44 [facility] [place] was scanned into [employer] and attached to record. hs2 05:45 CT Chest With Contrast Returned. EDMS 06:08 No procedures done that require assistance. lf1 07:47 T-Sheet-- Draft Copy was scanned into [employer] and attached to record. [facility] Administered Medications: 02:54 Drug: ketorolac 30 mg [ketorolac 30 mg/mL (1 mL) injection solution (1 mL)] Route: IVP; lf1 Site: right upper arm; 04:58 Drug: naloxone 2 mg [naloxone 1 mg/mL injection syringe (2 mL)] Route: IVP; Site: right lf1 hand; 05:18 Drug: Piperacillin-Tazobactam 3.375 grams [piperacillin-tazobactam 3.375 gram lf intravenous solution] Route: IVPB; Infused Over: 30 mins; Site: right hand; 06:00 Not Given (MD discretion): vancomycin (loading dose for pt. wt. 50-59kg) 1250 mg IVPB tuan once Order Results: Lab Order: CBC with Diff; SPEC'M 10/18/16 02:07 Test: WHITE BLOOD COUNT; Value: 7.6; Range: 4.0-10.0; Units: K/mm3; Status: F Test: RED BLOOD COUNT; Value: 4.28; Range: 4.00-5.40; Units: M/mm3; Status: F Test: HEMOGLOBIN; Value: 9.8; Range: 12.0-16.0; Abnormal: Below low normal; Units: g/dl; Status: F Test: HEMATOCRIT; Value: 31.2; Range: 36.0-47.0; Abnormal: Below low normal; Units: %; Status: F Test: MEAN CORPUSCULAR VOLUME; Value: 72.9; Range: 80.0-96.0; Abnormal: Below low normal; Units: fl; Status: F Test: MEAN CORPUSCULAR HEMOGLOBIN; Value: 22.9; Range: 27.0-33.0; Abnormal: Below low normal; Units: pg; Status: F Test: MEAN CORPUSCULAR HGB CONC; Value: 31.4; Range: 32.0-36.5; Abnormal: Below low normal; Units: g/dl; Status: F Test: RED CELL DISTRIBUTION WIDTH; Value: 16.4; Range: 11.5-14.5; Abnormal: Above high normal; Units: %; Status: F Test: PLATELET COUNT, AUTOMATED; Value: 146; Range: 150-450; Abnormal: Below low normal; Units: k/mm3; Status: F Test: NEUTROPHILS %; Value: 75.8; Range: 36.0-66.0; Abnormal: Above high normal; Units: %; Status: F Test: LYMPH %; Value: 15.8; Range: 24.0-44.0; Abnormal: Below low normal; Units: %; Status: F Test: MONO %; Value: 5.1; Range: 0.0-5.0; Abnormal: Above high normal; Units: %; Status: F Test: EOS %; Value: 0.6; Range: 0.0-3.0; Units: %; Status: F Test: BASO %; Value: 0.1; Range: 0.0-1.0; Units: %; Status: F Test: LARGE UNSTAINED CELL %; Value: 2.6; Range: 0.0-4.0; Units: %; Status: F Test: NEUTROPHILS #; Value: 5.7; Range: 1.8-7.7; Units: K/mm3; Status: F Test: LYMPH #; Value: 1.2; Range: 1.5-6.5; Abnormal: Below low normal; Units: K/mm3; Status: F Test: MONO #; Value: 0.4; Range: 0.0-0.8; Units: K/mm3; Status: F Test: EOS #; Value: 0.0; Range: 0.0-0.50; Units: K/mm3; Status: F Test: BASO #; Value: 0.0; Range: 0.0-0.2; Units: K/mm3; Status: F Test: LARGE UNSTAINED CELL #; Value: 0.2; Range: 0.0-0.4; Units: K/mm3; Status: F Lab Order: [facility]; SPEC'M 10/18/16 02:07 Test: GLUCOSE, FASTING; Value: 84; Range: 70-105; Units: MG/DL; Status: F Test: BLOOD UREA NITROGEN; Value: 17; Range: 7-18; Units: MG/DL; Status: F Test: CREATININE FOR GFR; Value: 0.68; Range: 0.55-1.02; Units: MG/DL; Status: F Test: SODIUM LEVEL; Range: 136-145; Units: MEQ/L; Status: I Test: POTASSIUM SERUM; Range: 3.5-5.1; Units: MEQ/L; Status: I Test: CHLORIDE LEVEL; Range: 98-107; Units: MEQ/L; Status: I Test: CARBON DIOXIDE LEVEL; Range: 21-32; Units: MEQ/L; Status: I Test: ANION GAP; Range: 8-16; Units: MEQ/L; Status: I Test: CALCIUM LEVEL; Range: 8.5-10.1; Units: MG/DL; Status: I Test: GLOMERULAR FILTRATION RATE; Value: > 60.0; Range: >60; Status: F Test: SODIUM LEVEL; Value: 141; Range: 136-145; Units: MEQ/L; Status: F Test: POTASSIUM SERUM; Value: 3.0; Range: 3.5-5.1; Abnormal: Below low normal; Units: MEQ/L; Status: F Test: CHLORIDE LEVEL; Value: 104; Range: 98-107; Units: MEQ/L; Status: F Test: CARBON DIOXIDE LEVEL; Value: 28; Range: 21-32; Units: MEQ/L; Status: F Test: ANION GAP; Value: 9; Range: 8-16; Units: MEQ/L; Status: F Test: CALCIUM LEVEL; Value: 8.2; Range: 8.5-10.1; Abnormal: Below low normal; Units: MG/DL; Status: F Test Note: ; Units are mL/min/1.73 m2 Chronic Kidney Disease Staging per NKF: Stage I & II GFR >=60 Normal to Mildly Decreased Stage III GFR 30-59 Moderately Decreased Stage IV GFR 15-29 Severely Decreased Stage V GFR <15 Very Little GFR Left ESRD GFR <15 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 MPR johnson; l and sagittal sequences were obtained.; COMMENTS:; Bilateral basilar atelectatic pulmonary changes.; There is no evidence of pleural or parenchymal mass. There are no pleural effusions. There is no evid; ence of hilar or mediastinal lymphadenopathy. The heart and great vessels are within normal limits.; The visualized portions of the liver are of uniform attenuation without mass or defect. There is no i; ntra or extrahepatic biliary ductal dilatation. The spleen is unremarkable. The visualized pancreas i; s of normal contour and attenuation characteristics. There is no evidence of adrenal mass. The visual; ized portions of the kidneys present no abnormalities.; The bony structures are free of lytic or blastic lesions. Multilevel degenerative changes are seen in; volving the thoracic spine. Scattered calcifications are seen involving the aorta and visualized juaquin; r branches compatible with atherosclerosis.; No evidence for abnormal enhancement.; IMPRESSION:; Bilateral basilar atelectatic pulmonary changes.; No abscess is seen.; Thank you for your kind referral of this patient.; ; ; Outcome: 05:23 Decision to Hospitalize by Provider. mm11 06:08 Discharge Assessment: Patient awake, alert and oriented x 3. No cognitive and/or lf1 functional deficits noted. Patient verbalized understanding of disposition instructions. Admitted to Med/Surg accompanied by nurse, accompanied by tech, via stretcher, with chart. Condition: unchanged. CT Study completed. Property belongs bagged and given to staff. 06:27 Discharge Assessment: patient administered narcotics - no. The following High Risk lf1 Discharge criteria are identified: None. Admitted to Med/Surg. 06:27 Patient left the ED. lf1 Signatures: Dispatcher [employer] EDMS Estefany Chapman RN RN jan Peters, Mary, RN RN Henok Camp RN RN cz Bancroft, Kristopher, ASSISTANT PROFESSOR OF SPANISH ASSISTANT PROFESSOR OF SPANISH kb5 Zainab Monroy RN RN lf1 Flakito Peterson, DO mm11 Estrellita Ferreira, ASSISTANT PROFESSOR OF SPANISH ASSISTANT PROFESSOR OF SPANISH Whit Ortega ys2 Mecca Silveira, Reg Reg hs2 Yajaira Guy Corrections: (The following items were deleted from the chart) 10/17 22:35 22:33 Home Meds: acetaminophen-codeine 300-30 mg oral tab 2 tabs every 4 hours mcp [Inactive]; mcp Chart Complete MTDD
--- NOTE | 2016-10-20 12:31 | EDDOCDS ---
Physician Documentation [facility] Name: Kitty Marinelli Age: 30 yrs Sex: Female : 1985 Arrival Date: 10/17/2016 Time: 22:21 Bed 7 Private MD: Disposition: 10/18/16 05:23 Hospitalization ordered by Whit Barth for Inpatient Admission. Preliminary diagnosis are Cutaneous abscess of chest wall, Cutaneous abscess of left upper limb, Cutaneous abscess of right upper limb, Opioid abuse with intoxication. - Bed requested for 4 [place]. - Status is Inpatient Admission. lf1 - Condition is Stable. - Problem is an acute exacerbation. - Symptoms have improved. Historical: - Allergies: no known allergies; - Home Meds: 1. none - PMHx: drug addiction; - PSHx: Gastric Bypass; - Social history: Smoking status: Patient uses tobacco products, heavy tobacco smoker. No barriers to communication noted, The patient speaks fluent Slovak. - Family history: Not pertinent. - : The pt / caregiver states he / she is not on anticoagulants. Home medication list is obtained from the patient. - Exposure Risk Screening:: None identified. 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 3 in. (160.02 cm) (R); Pain 10/10; 10/18 02:49 BP 103 / 65 (auto/); lf1 02:58 BP 100 / 69 (auto/); lf1 02:58 Pulse 60 MON; Pulse Ox 100% ; lf1 02:59 BP 116 / 9; Pulse 68; Resp 16; Temp 98.0(TE); Pulse Ox 100% on R/A; Pain 0/10; lf1 03:11 BP 103 / 68 (auto/); lf1 03:11 Pulse 70 MON; Pulse Ox 100% ; lf1 03:26 BP 103 / 68 (auto/); lf1 03:26 Pulse 78 MON; Pulse Ox 100% ; lf1 03:41 BP 91 / 56 (auto/); lf1 03:41 Pulse 76 MON; Resp 16; Pulse Ox 99% on R/A; lf1 03:56 BP 88 / 55 (auto/); lf1 03:56 Pulse 68 MON; Pulse Ox 99% ; lf1 04:11 BP 88 / 55 (auto/); lf1 04:11 Pulse 62 MON; lf1 04:55 BP 122 / 79 (auto/); lf1 04:56 Pulse 102 MON; Resp 16; Pain 0/10; lf1 05:35 Pulse 92 MON; Pulse Ox 100% ; lf1 05:36 BP 108 / 63 (auto/); lf1 05:58 Pulse 68 MON; Resp 16; Pulse Ox 100% on R/A; lf1 06:00 BP 114 / 71; Pulse 74; Temp 97.2(TE); lf1 10/17 22:24 Body Mass Index 22.32 (57.15 kg, 160.02 cm) rocio 10/17 22:24 UNABLE TO OBTAIN TEMPATURE DURING INTAKE PROCESS. STTEMPTED THREE TIMES rocio MDM: 10/18 01:19 -Blood Culture (Adults Only), peripheral from different site, or from device/port/PICC mm11 etc. if present ordered. 01:19 ketorolac 30 mg IVP once ordered. mm11 01:19 HIV Screen, Nursing ordered. mm11 01:19 CBC with Diff Ordered. EDMS 01:19 BMP Ordered. EDMS 01:19 CRP Ordered. EDMS 01:19 HCG,Serum Qualitative Ordered. EDMS 01:20 -Blood Culture Ordered. EDMS 01:23 -Blood Culture (Adults Only), peripheral from different site, or from device/port/PICC ml3 etc. if present complete. 01:24 BLOOD CULTURES Ordered. EDMS 02:22 CBC with Diff Reviewed. mm11 02:40 HCG,Serum Qualitative Reviewed. mm11 02:53 BMP Reviewed. mm11 02:53 CRP Reviewed. mm11 02:53 HCG,Serum Qualitative Reviewed. mm11 02:54 CT Chest With Contrast Ordered. EDMS 04:26 naloxone 2 mg IVP once ordered. mm11 04:42 Piperacillin-Tazobactam 3.375 grams IVPB once over 30 mins; dilute in 50mL of NS or D5W mm11 ordered. 04:44 BED REQUEST+ADM ordered. EDMS 04:48 Wound Culture - Other Unlisted Source Ordered. EDMS 05:02 vancomycin (loading dose for pt. wt. 50-59kg) 1250 mg IVPB once ordered. mm11 05:33 Admission / Observation Status ordered. EDMS 05:33 NPO DIET ordered. EDMS 05:39 Financial registration complete. hs2 05:44 [facility] Payment Agreement was scanned into [employer] and attached to record. hs2 05:49 ELECTROCARDIOGRAM ADULT ordered. EDMS 05:50 HIV 1&2 ANTIBODY SCREEN Ordered. EDMS 05:50 HEPATITIS PROFILE Ordered. EDMS 07:47 T-Sheet-- Draft Copy was scanned into [employer] and attached to record. seh Administered Medications: 02:54 Drug: ketorolac 30 mg [ketorolac 30 mg/mL (1 mL) injection solution (1 mL)] Route: IVP; lf1 Site: right upper arm; 04:58 Drug: naloxone 2 mg [naloxone 1 mg/mL injection syringe (2 mL)] Route: IVP; Site: right lf1 hand; 05:18 Drug: Piperacillin-Tazobactam 3.375 grams [piperacillin-tazobactam 3.375 gram lf1 intravenous solution] Route: IVPB; Infused Over: 30 mins; Site: right hand; 06:00 Not Given (MD discretion): vancomycin (loading dose for pt. wt. 50-59kg) 1250 mg IVPB tuan once Signatures: Dispatcher [employer] Jonaa Garcia RN RN mcp Lopresti, Mary-Elizabeth, Sciences Dean Unit ml3 Zainab Monroy RN RN lf1 Flakito Peterson, DO mm11 Tamara Kahn,EXCEL EXPERT EXCEL EXPERT cp1 Mecca Silveira, Reg Reg hs2 Yajaira Guy Jill New RN tuan The chart was reviewed and I authenticate all verbal orders and agree with the evaluation and treatment provided.Corrections: (The following items were deleted from the chart) 10/17 22:35 22:33 Home Meds: acetaminophen-codeine 300-30 mg oral tab 2 tabs every 4 hours mcp [Inactive]; mcp Attachments: 10/18 05:44 [facility] Payment Agreement hs2 07:47 T-Sheet-- Draft Copy se Chart Complete MTDD
--- NOTE | 2016-10-20 12:31 | EDDOCDS ---
Physician Documentation [facility] Name: Kitty Marinelli Age: 30 yrs Sex: Female : 1985 Arrival Date: 10/17/2016 Time: 22:21 Bed 7 Private MD: Disposition: 10/18/16 05:23 Hospitalization ordered by Whit Barth for Inpatient Admission. Preliminary diagnosis are Cutaneous abscess of chest wall, Cutaneous abscess of left upper limb, Cutaneous abscess of right upper limb, Opioid abuse with intoxication. - Bed requested for 4 [place]. - Status is Inpatient Admission. lf1 - Condition is Stable. - Problem is an acute exacerbation. - Symptoms have improved. Historical: - Allergies: no known allergies; - Home Meds: 1. none - PMHx: drug addiction; - PSHx: Gastric Bypass; - Social history: Smoking status: Patient uses tobacco products, heavy tobacco smoker. No barriers to communication noted, The patient speaks fluent Georgian. - Family history: Not pertinent. - : The pt / caregiver states he / she is not on anticoagulants. Home medication list is obtained from the patient. - Exposure Risk Screening:: None identified. 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 3 in. (160.02 cm) (R); Pain 10/10; 10/18 02:49 BP 103 / 65 (auto/); lf1 02:58 BP 100 / 69 (auto/); lf1 02:58 Pulse 60 MON; Pulse Ox 100% ; lf1 02:59 BP 116 / 9; Pulse 68; Resp 16; Temp 98.0(TE); Pulse Ox 100% on R/A; Pain 0/10; lf1 03:11 BP 103 / 68 (auto/); lf1 03:11 Pulse 70 MON; Pulse Ox 100% ; lf1 03:26 BP 103 / 68 (auto/); lf1 03:26 Pulse 78 MON; Pulse Ox 100% ; lf1 03:41 BP 91 / 56 (auto/); lf1 03:41 Pulse 76 MON; Resp 16; Pulse Ox 99% on R/A; lf1 03:56 BP 88 / 55 (auto/); lf1 03:56 Pulse 68 MON; Pulse Ox 99% ; lf1 04:11 BP 88 / 55 (auto/); lf1 04:11 Pulse 62 MON; lf1 04:55 BP 122 / 79 (auto/); lf1 04:56 Pulse 102 MON; Resp 16; Pain 0/10; lf1 05:35 Pulse 92 MON; Pulse Ox 100% ; lf1 05:36 BP 108 / 63 (auto/); lf1 05:58 Pulse 68 MON; Resp 16; Pulse Ox 100% on R/A; lf1 06:00 BP 114 / 71; Pulse 74; Temp 97.2(TE); lf1 10/17 22:24 Body Mass Index 22.32 (57.15 kg, 160.02 cm) rocio 10/17 22:24 UNABLE TO OBTAIN TEMPATURE DURING INTAKE PROCESS. STTEMPTED THREE TIMES rocio MDM: 10/18 01:19 -Blood Culture (Adults Only), peripheral from different site, or from device/port/PICC mm11 etc. if present ordered. 01:19 ketorolac 30 mg IVP once ordered. mm11 01:19 HIV Screen, Nursing ordered. mm11 01:19 CBC with Diff Ordered. EDMS 01:19 BMP Ordered. EDMS 01:19 CRP Ordered. EDMS 01:19 HCG,Serum Qualitative Ordered. EDMS 01:20 -Blood Culture Ordered. EDMS 01:23 -Blood Culture (Adults Only), peripheral from different site, or from device/port/PICC ml3 etc. if present complete. 01:24 BLOOD CULTURES Ordered. EDMS 02:22 CBC with Diff Reviewed. mm11 02:40 HCG,Serum Qualitative Reviewed. mm11 02:53 BMP Reviewed. mm11 02:53 CRP Reviewed. mm11 02:53 HCG,Serum Qualitative Reviewed. mm11 02:54 CT Chest With Contrast Ordered. EDMS 04:26 naloxone 2 mg IVP once ordered. mm11 04:42 Piperacillin-Tazobactam 3.375 grams IVPB once over 30 mins; dilute in 50mL of NS or D5W mm11 ordered. 04:44 BED REQUEST+ADM ordered. EDMS 04:48 Wound Culture - Other Unlisted Source Ordered. EDMS 05:02 vancomycin (loading dose for pt. wt. 50-59kg) 1250 mg IVPB once ordered. mm11 05:33 Admission / Observation Status ordered. EDMS 05:33 NPO DIET ordered. EDMS 05:39 Financial registration complete. hs2 05:44 [facility] Payment Agreement was scanned into [employer] and attached to record. hs2 05:49 ELECTROCARDIOGRAM ADULT ordered. EDMS 05:50 HIV 1&2 ANTIBODY SCREEN Ordered. EDMS 05:50 HEPATITIS PROFILE Ordered. EDMS 07:47 T-Sheet-- Draft Copy was scanned into [employer] and attached to record. seh Administered Medications: 02:54 Drug: ketorolac 30 mg [ketorolac 30 mg/mL (1 mL) injection solution (1 mL)] Route: IVP; lf1 Site: right upper arm; 04:58 Drug: naloxone 2 mg [naloxone 1 mg/mL injection syringe (2 mL)] Route: IVP; Site: right lf1 hand; 05:18 Drug: Piperacillin-Tazobactam 3.375 grams [piperacillin-tazobactam 3.375 gram lf1 intravenous solution] Route: IVPB; Infused Over: 30 mins; Site: right hand; 06:00 Not Given (MD discretion): vancomycin (loading dose for pt. wt. 50-59kg) 1250 mg IVPB tuan once Signatures: Dispatcher [employer] Joana Garcia RN RN mcp Lopresti, Mary-Elizabeth, Medical Office Technology Instructor Unit ml3 Zainab Monroy RN RN lf1 Flakito Peterson, DO mm11 Tamara Kahn,PULLEY MAN PULLEY MAN cp1 Mecca Silveira, Reg Reg hs2 Yajaira Guy Jill New RN tuan The chart was reviewed and I authenticate all verbal orders and agree with the evaluation and treatment provided.Corrections: (The following items were deleted from the chart) 10/17 22:35 22:33 Home Meds: acetaminophen-codeine 300-30 mg oral tab 2 tabs every 4 hours mcp [Inactive]; mcp Attachments: 10/18 05:44 [facility] Payment Agreement hs2 07:47 T-Sheet-- Draft Copy se Chart Complete MTDD
[2016-10-20 14:00] VITALS: BP 122/76
[2016-10-20 22:00] VITALS: BP 120/69
[2016-10-21] MEDS: NS 1,000 ML IV SCH (03:20)
[2016-10-21] MEDS: HEPARIN SOD (PORCINE) 5000 UNITS/ML VIAL SC SCH ×2 (05:40→14:42)
[2016-10-21] MEDS: VANCOMYCIN HCL 1,000 MG, VIAL MATE ADAPTER 1 EACH in D5W 250 ML IV SCH (05:41)
[2016-10-21 06:00] VITALS: BP 120/83
[2016-10-21 07:08] LABS: BASO # 0.1 K/mm3 (0.0-0.2); BASO % 1.6 % (0.0-1.0); EOS % 0.7 % (0.0-3.0); LARGE UNSTAINED CELL # 0.1 K/mm3 (0.0-0.4); LARGE UNSTAINED CELL % 2.6 % (0.0-4.0); LYMPH # 2.3 K/mm3 (1.5-6.5); MEAN CORPUSCULAR HEMOGLOBIN 22.5 pg (27.0-33.0); MEAN CORPUSCULAR HGB CONC 30.8 g/dl (32.0-36.5); MEAN CORPUSCULAR VOLUME 72.9 fl (80.0-96.0); MONO # 0.4 K/mm3 (0.0-0.8); MONO % 6.5 % (0.0-5.0); NEUTROPHILS # 2.6 K/mm3 (1.8-7.7); NEUTROPHILS % 48.5 % (36.0-66.0); PLATELET COUNT, AUTOMATED 191 k/mm3 (150-450); RED CELL DISTRIBUTION WIDTH 17.9 % (11.5-14.5); WHITE BLOOD COUNT 5.4 K/mm3 (4.0-10.0)
[2016-10-21 07:18] LABS: ALBUMIN 2.2 GM/DL (3.2-5.2); ALBUMIN/GLOBULIN RATIO 0.79 (1.00-1.93); ALKALINE PHOSPHATASE 55 U/L (45-117); ALT/SGPT 14 U/L (12-78); ANION GAP 7 MEQ/L (8-16); AST/SGOT 28 U/L (15-37); BILIRUBIN,TOTAL 0.2 MG/DL (0.2-1.0); BLOOD UREA NITROGEN 8 MG/DL (7-18); CALCIUM LEVEL 7.5 MG/DL (8.5-10.1); CARBON DIOXIDE LEVEL 29 MEQ/L (21-32); CHLORIDE LEVEL 108 MEQ/L (98-107); CREATININE FOR GFR 0.66 MG/DL (0.55-1.02); GLOMERULAR FILTRATION RATE > 60.0 (>60); GLUCOSE, FASTING 93 MG/DL (70-105); POTASSIUM SERUM 3.6 MEQ/L (3.5-5.1); SODIUM LEVEL 144 MEQ/L (136-145)
[2016-10-21] MEDS: THIAMINE 100 MG TAB PO SCH (09:51)
[2016-10-21] MEDS: FOLIC ACID 1 MG TAB PO SCH (09:51)
[2016-10-21] MEDS: NICOTINE 21MG/24HR 1 EA TRANSDERMAL TD SCH (09:51)
[2016-10-21] MEDS: METHADONE 5 MG TAB (S0109) PO SCH (09:52)
[2016-10-21] MEDS: LORazepam 2 MG TAB PO PRN (09:59)
--- NOTE | 2016-10-21 11:40 | IPNPDOC ---
Assessment/Plan Date Seen The patient was seen on 10/21/16. 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 Cultures/sensitivities noted. Anticipating discharge with PO antibiotics to [facility] on Wednesday10/23/16. (2) Nicotine abuse Status: Acute Response to Treatment: Progressing Discussed With: Patient Problem Specific Plan: Monitor Clinically Problem Text: Nicotine replacement therapy. (3) H/O gastric bypass Status: Chronic Response to Treatment: Stable Discussed With: Patient Problem Specific Plan: Monitor Clinically (4) Heroin abuse Status: Chronic Discussed With: Patient Problem Specific Plan: Consult Specialist, Monitor Clinically Problem Text: continue with 1:1 sitter given illicit drug use while in the ER. Patient states she is schedule for follow up with [facility] Wednesday. Attempting to co-ordinate methadone eval/treatment for Wednesday as well. Methadone and continue ativan as needed. Plan / VTE VTE Prophylaxis Ordered?: Yes (Heparin SC) Plan IVF: Discontinue Diet: Continue Current Activity: Continue Current Medications: Replete Electrolytes PO Diagnostics: Repeat Labs in AM Anticipated Discharge: Other Anticipated D/C (drug rehab) Plan Text Discharge to directly to [facility] on Wednesday. Patient not happy with staying in hospital. Subjective Review of Systems CC/HPI The patient is a 30-year-old female admitted with a reason for visit of Altered Mental Status,Heroin Abuse. General: Denies: Chills, Fatigue, Malaise, Night Sweats, Normal Appetite, Other Symptoms, ROS Unobtainable Constitutional: Denies: Chills, Fatigue, Fever, Lethargy, Malaise, Night Sweats , Other, Weakness, Weight Loss Eyes: Denies: Conjunctivae inflammation, Eyelid inflammation, Other, Pain, Redness, Vision change ENT: Denies: Dysphagia, Ear Pain, Epistaxis, Head Aches, Other Symptoms, Post Nasal Drip, Sinus Congestion, Sore Throat Skin: Denies: Breakdown, Bruising, Dry, Itching, Jaundice, Lesions, Nail Changes, Other, Rash Pulmonary: Denies: Cough, Dyspnea, Other Symptoms, Pleuritic Chest Pain Cardiovascular: Denies: Chest Pain, Edema, Lt Headedness, Orthopnea, Other Symptoms, Palpitations, Paroxysmal Noc. Dyspnea Gastrointestinal: Denies: Abdominal Pain, Constipation, Diarrhea, Hematochezia , Melena, Nausea, Other Symptoms, Vomiting Musculoskeletal: Reports: Back Pain Objective Physical Examination General Exam: Positive: Alert, Cooperative, Mild Distress Eye Exam: Positive: Conjunctiva & lids normal, PERRLA ENT Exam: Positive: Atraumatic Neck Exam: Positive: Supple Chest Exam: Positive: Clear to auscultation, Normal air movement Heart Exam: Positive: Rate Normal, Regular Rhythm Telemetry: Positive: No significant arrhythmia Abdomen Exam: Positive: Normal bowel sounds, Soft, Negative: Tenderness Extremity Exam: Negative: Edema Psych Exam: Positive: Oriented x 3 Vital Signs/I&O Vital Signs Date Time Temp Pulse Resp B/P Pulse Ox O2 Delivery O2 Flow Rate FiO2 10/21/16 09:52 20 10/21/16 06:00 96.6 72 120/83 97 Room Air I&O- Last 24 Hours up to 6 AM 10/21/16 06:00 Intake Total 4480 ml Output Total 2950 ml Balance 1530 ml Laboratory Data Labs 24H Laboratory Tests 2 10/20/16 12:55: Vancomycin Level Trough 16.8 10/21/16 06:10: Blood Urea Nitrogen 8, Creatinine 0.66, Sodium Level 144, Potassium Level 3.6, Chloride Level 108H, Carbon Dioxide Level 29, Calcium Level 7.5L, Aspartate Amino Transf (AST/SGOT) 28, Alanine Aminotransferase (ALT/SGPT) 14, Alkaline Phosphatase 55, Total Bilirubin 0.2, Total Protein 5.0L, Albumin 2.2L, Albumin/ Globulin Ratio 0.79L, Anion Gap 7L, White Blood Count 5.4, Red Blood Count 4.08 , Hemoglobin 9.2L, Hematocrit 29.7L, Mean Corpuscular Volume 72.9L, Mean Corpuscular Hemoglobin 22.5L, Mean Corpuscular Hemoglobin Concent 30.8L, Red Cell Distribution Width 17.9H, Platelet Count 191, Neutrophils (%) (Auto) 48.5, Lymphocytes (%) (Auto) 40.0, Monocytes (%) (Auto) 6.5H, Eosinophils (%) (Auto) 0.7, Basophils (%) (Auto) 1.6H, Neutrophils # (Auto) 2.6, Lymphocytes # (Auto) 2.3, Monocytes # (Auto) 0.4, Eosinophils # (Auto) 0.0, Basophils # (Auto) 0.1, C -Reactive Protein, Quantitative 1.05H, Glomerular Filtration Rate > 60.0, Large Unclassified Cells # 0.1, Large Unclassified Cells % 2.6 CBC/BMP Laboratory Tests 10/21/16 06:10 Calcium Level 7.5 L, Aspartate Amino Transf (AST/SGOT) 28, Alanine Aminotransferase (ALT/SGPT) 14, Alkaline Phosphatase 55, Total Bilirubin 0.2, Total Protein 5.0 L, Albumin 2.2 L, Red Blood Count 4.08, Mean Corpuscular Volume 72.9 L, Mean Corpuscular Hemoglobin 22.5 L, Mean Corpuscular Hemoglobin Concent 30.8 L, Red Cell Distribution Width 17.9 H, Neutrophils (%) (Auto) 48.5 , Lymphocytes (%) (Auto) 40.0, Monocytes (%) (Auto) 6.5 H, Eosinophils (%) (Auto ) 0.7, Basophils (%) (Auto) 1.6 H, Neutrophils # (Auto) 2.6, Lymphocytes # (Auto ) 2.3, Monocytes # (Auto) 0.4, Eosinophils # (Auto) 0.0, Basophils # (Auto) 0.1 Microbiology Microbiology 10/18/16 Blood Culture - Preliminary, Resulted No Growth after 72 hours. All specime... 10/18/16 Blood Culture - Preliminary, Resulted No Growth after 72 hours. All specime... 10/18/16 Wound Culture - Final, Complete Staphylococcus Aureus MARIAH LAY MD Oct 21, 2016 11:40
[2016-10-21 14:00] VITALS: BP 122/71
[2016-10-21] MEDS ORDERED: FOLI1TAB2 PO (15:24)
[2016-10-21] MEDS ORDERED: NICO21PAT TD (15:24)
[2016-10-21] MEDS ORDERED: THIA100TA PO (15:24)
[2016-10-21] MEDS ORDERED: DOXY-278 PO (15:27)
--- NOTE | 2016-10-21 16:47 | DS.PDOC ---
Discharge Summary General Date of Admission Oct 18, 2016 at 05:29 Date of Discharge Oct 21, 2016 at 16:28 Specialist/Consultants Involve: Jaron Pathak Jr Specialist/Consultants Involve Discussed with [facility] drug rehab, and Dr. Cobb. Discharge Summary PROCEDURES PERFORMED DURING STAY: [None.] COMPLICATIONS/CHIEF COMPLAINT: Altered Mental Status,Heroin Abuse DISCHARGE DIAGNOSES: 1. Heroin Abuse 2. Non-compliance 3. Abscess HISTORY OF PRESENT ILLNESS: Patient is a 30 year old female presenting for upper back pain. History of IV drug abuse, and apparently injected through her peripheral access site in the ER. Admitted for drug overdose and possible abscess. HOSPITAL COURSE: Patient was admitted for heroin overdose/abuse. Patient noted have abscess which was drained and cultures. Surgical consultation for further assistance. Patient was setup for follow up with drug rehab facility. Patient would not remain in hospital until her appointment date. Patient receiving methadone for heroin withdrawal. Risks of leaving hospital explained at length at bedside. Patient voice full understanding of risks including . Patient has capacity to make independent decisions. Case discussed with surgery, case management, rehab facility. Patient still left AMA. DISCHARGE MEDICATIONS: Please see below. ALLERGIES: Please see below. PHYSICAL EXAMINATION ON DISCHARGE: VITAL SIGNS: Please see below. Please refer to progress note from day of discharge. LABORATORY DATA: Please see below. VTE Prophylaxis ordered?: Yes DISCHARGE CONDITION: poor prognosis, patient leaving against medical advice DISPOSITION: LEFT AMA ACTIVITY: as tolerated DIET: as tolerated ITEMS TO FOLLOWUP ON OUTPATIENT: 1. Report to [facility] on 10/23/16 DISCHARGE PLAN AND INSTRUCTIONS: 1. Abstain from illicit drug use. 2. Take medications as directed. TIME SPENT ON DISCHARGE: Greater than 30 minutes. Vital Signs/I&Os Vital Signs Date Time Temp Pulse Resp B/P Pulse Ox O2 Delivery O2 Flow Rate FiO2 10/21/16 09:52 20 10/21/16 06:00 96.6 72 120/83 97 Room Air I&O- Last 24 Hours up to 6 AM 10/21/16 06:00 Intake Total 4480 ml Output Total 2950 ml Balance 1530 ml Laboratory Data Labs 24H Laboratory Tests 2 10/21/16 06:10: Blood Urea Nitrogen 8, Creatinine 0.66, Sodium Level 144, Potassium Level 3.6, Chloride Level 108H, Carbon Dioxide Level 29, Calcium Level 7.5L, Aspartate Amino Transf (AST/SGOT) 28, Alanine Aminotransferase (ALT/SGPT) 14, Alkaline Phosphatase 55, Total Bilirubin 0.2, Total Protein 5.0L, Albumin 2.2L, Albumin/ Globulin Ratio 0.79L, Anion Gap 7L, White Blood Count 5.4, Red Blood Count 4.08 , Hemoglobin 9.2L, Hematocrit 29.7L, Mean Corpuscular Volume 72.9L, Mean Corpuscular Hemoglobin 22.5L, Mean Corpuscular Hemoglobin Concent 30.8L, Red Cell Distribution Width 17.9H, Platelet Count 191, Neutrophils (%) (Auto) 48.5, Lymphocytes (%) (Auto) 40.0, Monocytes (%) (Auto) 6.5H, Eosinophils (%) (Auto) 0.7, Basophils (%) (Auto) 1.6H, Neutrophils # (Auto) 2.6, Lymphocytes # (Auto) 2.3, Monocytes # (Auto) 0.4, Eosinophils # (Auto) 0.0, Basophils # (Auto) 0.1, C -Reactive Protein, Quantitative 1.05H, Glomerular Filtration Rate > 60.0, Large Unclassified Cells # 0.1, Large Unclassified Cells % 2.6 CBC/BMP Laboratory Tests 10/21/16 06:10 Calcium Level 7.5 L, Aspartate Amino Transf (AST/SGOT) 28, Alanine Aminotransferase (ALT/SGPT) 14, Alkaline Phosphatase 55, Total Bilirubin 0.2, Total Protein 5.0 L, Albumin 2.2 L, Red Blood Count 4.08, Mean Corpuscular Volume 72.9 L, Mean Corpuscular Hemoglobin 22.5 L, Mean Corpuscular Hemoglobin Concent 30.8 L, Red Cell Distribution Width 17.9 H, Neutrophils (%) (Auto) 48.5 , Lymphocytes (%) (Auto) 40.0, Monocytes (%) (Auto) 6.5 H, Eosinophils (%) (Auto ) 0.7, Basophils (%) (Auto) 1.6 H, Neutrophils # (Auto) 2.6, Lymphocytes # (Auto ) 2.3, Monocytes # (Auto) 0.4, Eosinophils # (Auto) 0.0, Basophils # (Auto) 0.1 Microbiology Microbiology 10/18/16 Blood Culture - Preliminary, Resulted No Growth after 72 hours. All specime... 10/18/16 Blood Culture - Preliminary, Resulted No Growth after 72 hours. All specime... 10/18/16 Wound Culture - Final, Complete Staphylococcus Aureus Medications Scheduled (Doxycycline) 100 Mg Cap 100 MG PO BID Folic Acid (Folic Acid) 1 Mg Tab 1 MG PO DAILY Nicotine (Nicotine Transdermal Syst) 21 Mg/24 Hr Dis 1 PATCH TD DAILY Thiamine Hcl (Thiamine Hcl) 100 Mg Tab 100 MG PO DAILY Allergies Coded Allergies: No Known Allergies (Verified Allergy, Unknown, 12/11/05) MARIAH LAY MD Oct 21, 2016 16:47
== END 2016-10-21 16:28 | disposition left against medical advice (07) | DRG 383 ==
LOC: M ED 22:21 → M ED INP 10-18 05:29 → M MSPAV 10-18 06:20
PROVIDERS: ADMIT Internal Medicine; ATTEND Internal Medicine
DX: L03.114 Cellulitis of left upper limb (principal); F11.20 Opioid dependence, uncomplicated; L03.313 Cellulitis of chest wall; Z91.19 Patient's noncompliance with other medical treatment and regimen; Z79.899 Other long term (current) drug therapy; L03.312 Cellulitis of back [any part except buttock and flank]; F17.200 Nicotine dependence, unspecified, uncomplicated; Z98.84 Bariatric surgery status; L03.113 Cellulitis of right upper limb

== ENCOUNTER → 2016-10-30 | Outpatient (CLI) | payer OTHER ==
[~2016-10-30] MED LIST changes: +DOXY-278 PO; +FOLI1TAB2 PO; +NICO21PAT TD; +THIA100TA PO
[2016-10-30 20:06] LABS: MEAN CORPUSCULAR HEMOGLOBIN 23.7 pg (27.0-33.0); MEAN CORPUSCULAR HGB CONC 31.1 g/dl (32.0-36.5); RED CELL DISTRIBUTION WIDTH 17.2 % (11.5-14.5); WHITE BLOOD COUNT 6.5 K/mm3 (4.0-10.0)
[2016-10-30 20:18] LABS: ALBUMIN 3.5 GM/DL (3.2-5.2); ALBUMIN/GLOBULIN RATIO 1.03 (1.00-1.93); ALKALINE PHOSPHATASE 98 U/L (45-117); ALT/SGPT 28 U/L (12-78); ANION GAP 7 MEQ/L (8-16); AST/SGOT 46 U/L (15-37); BILIRUBIN,TOTAL 0.3 MG/DL (0.2-1.0); BLOOD UREA NITROGEN 28 MG/DL (7-18); CALCIUM LEVEL 8.4 MG/DL (8.5-10.1); CARBON DIOXIDE LEVEL 29 MEQ/L (21-32); CHLORIDE LEVEL 107 MEQ/L (98-107); CREATININE FOR GFR 1.02 MG/DL (0.55-1.02); GLOMERULAR FILTRATION RATE > 60.0 (>60); GLUCOSE, FASTING 145 MG/DL (70-105); POTASSIUM SERUM 4.1 MEQ/L (3.5-5.1); SODIUM LEVEL 143 MEQ/L (136-145); TOTAL PROTEIN 6.9 GM/DL (6.4-8.2)
[2016-11-02 12:51] LABS: CONTROL LINE INT CTR LINE PRESENT; HIV SCRN NEGATIVE (NEGATIVE); HIV SCRN1 NEGATIVE (NEGATIVE)
== END ==
LOC: M WUC 15:39
PROVIDERS: ATTEND Family Medicine
DX: F11.20 Opioid dependence, uncomplicated (principal)

== ENCOUNTER → 2017-07-02 | Outpatient (CLI) | payer MEDICAID, OTHER ==
[~2017-07-02] MED LIST changes: -FOLI1TAB2 PO; +FOLI1TAB4 PO
--- NOTE | 2017-07-02 15:24 | REP ---
Chest x-ray: Two views. History: Carpal tunnel surgery. . Comparison study: November 08, 2014 . Findings: The lungs are well inflated and free of infiltrate. The pleural angles are sharp. The heart size is normal. Pulmonary vasculature is not increased. No significant bony abnormality is seen. Impression: Negative chest x-ray. Signed by Td Nieto MD 07/02/2017 03:14 P
[2017-07-02 16:57] LABS: ANION GAP 5 MEQ/L (8-16); BLOOD UREA NITROGEN 21 MG/DL (7-18); CALCIUM LEVEL 8.5 MG/DL (8.5-10.1); CARBON DIOXIDE LEVEL 29 MEQ/L (21-32); CHLORIDE LEVEL 109 MEQ/L (98-107); CREATININE FOR GFR 0.98 MG/DL (0.55-1.02); GLOMERULAR FILTRATION RATE > 60.0 (>60); GLUCOSE, FASTING 98 MG/DL (70-105); POTASSIUM SERUM 4.9 MEQ/L (3.5-5.1); SODIUM LEVEL 143 MEQ/L (136-145)
[2017-07-02 17:45] LABS: MEAN CORPUSCULAR HEMOGLOBIN 28.5 pg (27.0-33.0); MEAN CORPUSCULAR HGB CONC 34.1 g/dl (32.0-36.5); MEAN CORPUSCULAR VOLUME 83.5 fl (80.0-96.0); RED CELL DISTRIBUTION WIDTH 13.2 % (11.5-14.5); WHITE BLOOD COUNT 3.7 K/mm3 (4.0-10.0)
== END ==
LOC: M WUC 14:26
DX: Z01.818 Encounter for other preprocedural examination (principal)

== ENCOUNTER → 2017-10-18 | Outpatient (CLI) | payer OTHER ==
[2017-10-18 16:35] LABS: CONTROL LINE UCG INT CTR LINE PRESENT; URINE PREG TEST NEGATIVE (NEGATIVE)
[2017-10-18 17:08] LABS: HEMATOCRIT 41.5 % (36.0-47.0); HEMOGLOBIN 13.5 g/dl (12.0-16.0); MEAN CORPUSCULAR HEMOGLOBIN 27.7 pg (27.0-33.0); MEAN CORPUSCULAR HGB CONC 32.5 g/dl (32.0-36.5); PLATELET COUNT, AUTOMATED 100 10^3/uL (150-450); RED BLOOD COUNT 4.88 10^6/uL (4.00-5.40); RED CELL DISTRIBUTION WIDTH 12.9 % (11.5-14.5); WHITE BLOOD COUNT 4.7 10^3/uL (4.0-10.0)
[2017-10-18 17:24] LABS: ALBUMIN/GLOBULIN RATIO 1.48 (1.00-1.93); ALKALINE PHOSPHATASE 73 U/L (45-117); ALT/SGPT 21 U/L (12-78); ANION GAP 5 MEQ/L (8-16); AST/SGOT 43 U/L (7-37); BILIRUBIN,TOTAL 0.3 MG/DL (0.2-1.0); BLOOD UREA NITROGEN 13 MG/DL (7-18); CALCIUM LEVEL 8.3 MG/DL (8.5-10.1); CARBON DIOXIDE LEVEL 31 MEQ/L (21-32); CHLORIDE LEVEL 105 MEQ/L (98-107); CREATININE FOR GFR 0.86 MG/DL (0.55-1.02); GLOMERULAR FILTRATION RATE > 60.0 (>60); GLUCOSE, FASTING 95 MG/DL (70-105); POTASSIUM SERUM 3.4 MEQ/L (3.5-5.1); SODIUM LEVEL 141 MEQ/L (136-145); TOTAL PROTEIN 6.7 GM/DL (6.4-8.2)
[2017-10-18 18:08] LABS: CHLAMYDIA DNA AMPLIFICATION NEGATIVE (NEGATIVE); GC DNA AMPLIFICATION NEGATIVE (NEGATIVE)
[2017-10-20 10:52] LABS: HEPATITIS B SURFACE ANTIGEN NEGATIVE (NEGATIVE)
[2017-10-20 11:08] LABS: HEPATITIS C VIRUS ABY INDEX 0.1 INDEX (<0.8)
[2017-10-20 11:09] LABS: HIV 1&2 SCREEN CENTAUR NEGATIVE (NEGATIVE)
== END ==
LOC: M LAB 15:45
DX: F11.20 Opioid dependence, uncomplicated (principal)
CPT/HCPCS: 93005

== ENCOUNTER 2018-07-17 09:50 | Emergency (ER) | payer MEDICAID, SELFPAY, OTHER ==
[2018-07-17] MEDS: NORCO, ANEXSIA 5/325MG TABLET (HYDROcodone/ACETAMINOPHEN) PO ×2 (11:00)
== END 2018-07-17 11:11 | disposition home or self-care (01) ==
LOC: M ED 09:50
DX: S89.91XA Unspecified injury of right lower leg, initial encounter (principal); W17.2XXA Fall into hole, initial encounter; Y92.096 Garden or yard of other non-institutional residence as the place of occurrence of the external cause; L03.115 Cellulitis of right lower limb; F32.9 Major depressive disorder, single episode, unspecified; F19.10 Other psychoactive substance abuse, uncomplicated; Z98.84 Bariatric surgery status
CPT/HCPCS: 73610

== ENCOUNTER 2018-12-04 14:49 | Day surgery (SDC) | payer MEDICAID, OTHER ==
[~2018-12-04] VITALS: Ht 160 cm; Wt 72.5 kg
[~2018-12-04 14:49] MED LIST changes: +BACT800T5 PO; +BUPR1TAB53 PO; -DOXY-278 PO; +DOXY-350 PO; +FOLI1TAB11 PO; -FOLI1TAB4 PO; +GABA800T4 PO
[2018-12-04] MEDS ORDERED: SUBO8MIS SL ×2 (14:57→18:08)
[2018-12-04] MEDS ORDERED: OMEP20CA3 PO (14:57)
[2018-12-04 15:50] LABS: BASO % 0.4 % (0.0-1.0); EOS % 0.4 % (0.0-3.0); HEMATOCRIT 39.2 % (36.0-47.0); LYMPH # 0.8 10^3/uL (1.5-4.5); LYMPH % 15.7 % (24.0-44.0); MEAN CORPUSCULAR HEMOGLOBIN 26.4 pg (27.0-33.0); MEAN CORPUSCULAR HGB CONC 33.2 g/dl (32.0-36.5); MEAN CORPUSCULAR VOLUME 79.7 fl (80.0-96.0); MONO # 0.5 10^3/uL (0.0-0.8); MONO % 10.3 % (0.0-5.0); NEUTROPHILS # 3.5 10^3/uL (1.8-7.7); PLATELET COUNT, AUTOMATED 155 10^3/uL (150-450); RED BLOOD COUNT 4.92 10^6/uL (4.00-5.40); WHITE BLOOD COUNT 4.8 10^3/uL (4.0-10.0)
[2018-12-04 16:51] LABS: BLOOD UREA NITROGEN 22 MG/DL (7-18); CALCIUM LEVEL 8.2 MG/DL (8.5-10.1); CARBON DIOXIDE LEVEL 30 MEQ/L (21-32); CHLORIDE LEVEL 102 MEQ/L (98-107); CREATININE FOR GFR 0.79 MG/DL (0.55-1.30); GLOMERULAR FILTRATION RATE > 60.0 (>60); GLUCOSE, FASTING 105 MG/DL (70-100); POTASSIUM SERUM 2.8 MEQ/L (3.5-5.1); SODIUM LEVEL 140 MEQ/L (136-145)
[2018-12-04] MEDS ORDERED: POTASSIUM CHLORIDE 10 MEQ SR TABLET PO ONE (17:15)
[2018-12-04] MEDS ORDERED: CLINDAMYCIN 600 MG in APPROPRIATE DILUENT 1 EA IV ONE (17:15)
[2018-12-04] MEDS ORDERED: MOBI15TA PO (18:08)
[2018-12-04] MEDS ORDERED: EXCETAB81 PO (18:08)
[2018-12-04] MEDS ORDERED: LIDOCAINE W/EPINEPHRINE 1% 20ML VIAL As Ordered ONE (19:09)
[2018-12-04] MEDS ORDERED: LIDOCAINE 1% SDV INJ 30 ML VIAL As Ordered ONE (19:09)
--- NOTE | 2018-12-04 19:17 | HPEPDOC ---
General Surgery H&P Date of Admission Dec 04, 2018 Attending Physician: NATHALY MORRIS MD History and Physical CHIEF COMPLAINT: Arm swelling HISTORY OF PRESENT ILLNESS: 33-year-old female who admits to shooting up cocaine came into the ER with a four-day history of right arm swelling around her elbow site where she shoots up. There is also a small area of swelling on the wrist area. She denies any fevers or chills. She last injected herself about 5 days ago. Patient reports prior history of arm abscess. Review of the medical records shows growth of staph aureus but methicillin sensitive. ALLERGIES: Please see below. HOME MEDICATIONS: Please see below. PAST MEDICAL HISTORY: 1. History of drug abuse, on relapse. 2. History of anemia 3. Depression PAST SURGICAL HISTORY: 1. Gastric bypass. 2. Cholecystectomy. PERSONAL/SOCIAL HISTORY: Patient reports recreational drug use. She also is on Suboxone. Reports smoking, alcohol use. REVIEW OF SYSTEMS: GENERAL: Denies chills, fatigue, fever, weight gain and weight loss. HEENT: Denies blurred vision and double vision. Denies ear symptoms. Denies hoarseness. NECK: Denies any neck pain. CARDIOVASCULAR: Denies chest pain and palpitations. MUSCULOSKELETAL: Arm pain and swelling. SKIN: And cellulitis on the right forearm and arm including the elbow. NEUROLOGIC: Denies headache, stroke and transient ischemic attack. PSYCHIATRIC: Reports history of depression ENDOCRINE: Denies thyroid disease. HEMATOLOGY/ONCOLOGY: Denies any bleeding or clotting disorder. Reports history of anemia HEART: Denies any chest pains, palpitations, paroxysmal dyspnea, orthopnea. PULMONARY: Denies chronic cough, dyspnea and wheezing. GASTROINTESTINAL: Denies rectal bleeding, family history of colon cancer, constipation, diarrhea, dysphagia, heartburn and jaundice. GENITOURINARY: Denies dysuria, frequency, hematuria and nocturia. ENDOCRINE: Denies polydipsia, polyphagia, polyuria, heat or cold intolerance. INFECTIOUS: Denies any recent upper respiratory tract infection, UTI, need for use of antibiotics. NUTRITION: Reports fair appetite. PHYSICAL EXAMINATION: VITAL SIGNS: Please see below. GENERAL APPEARANCE: Patient relatively comfortable appearing, not in acute distress HEENT: Normocephalic, atraumatic. [place] palpebral conjunctivae. Anicteric sclerae. Lips moist. CHEST: No chest wall abnormalities. Normal respiratory motion/effort. NECK: Supple. No thyromegaly. No lymphadenopathies. LUNGS: Lung sounds are clear to auscultation bilaterally. No wheezing appreciated. HEART: No chest wall abnormalities. Heart rate and rhythm are regular with no murmurs. ABDOMEN: Abdomen is obese, soft, slightly rounded. No hepatosplenomegaly. No umbilical or groin herniations, nondistended. No noticeable rebound or guarding. No grimacing with palpation. No rebound tenderness. No masses appreciated. SKIN: Multiple skin scars, erosions. On the right portion of her wrist is about a 3 x 2 cm area of induration with cellulitis. Up on her elbow area towards her upper arm is a wider area about 6 x 5 cm area of induration with an area of fluctuance, skin erythema. Skin tenderness, dermal thickening EXTREMITIES: Arm abscess and cellulitis as described above. NEUROLOGICAL: Awake, alert, oriented. LABORATORY DATA: Please see below. MICROBIOLOGY: Please see below. IMAGING: Ultrasound was done but is not available in [employer]. Per the emergency room physician reports contains about a 6 cm abscess on the right upper arm area. IMPRESSION AND PLAN: Relapsing history of drug abuse, IV drug user Right arm and forearm abscess She received a dose of clindamycin in the emergency room. Review of her medical record shows previous growth of staph aureus that is methicillin sensitive. This should adequately cover her abscess. She was consented for incision and drainage of her arm and forearm abscess. I'll bring her to the operating room given the amount of the induration especially on the upper arm area. Vital Signs Vital Signs Date Time Temp Pulse Resp B/P (MAP) Pulse Ox O2 Delivery O2 Flow Rate FiO2 12/04/18 15:17 12/04/18 14:50 97.1 113 18 94 Room Air Laboratory Data Labs 24H Laboratory Tests 2 12/04/18 15:35: Erythrocyte Sedimentation Rate 59H 12/04/18 15:36: Immature Granulocyte % (Auto) 0.2, White Blood Count 4.8, Red Blood Count 4.92, Hemoglobin 13.0, Hematocrit 39.2, Mean Corpuscular Volume 79.7L, Mean Co rpuscular Hemoglobin 26.4L, Mean Corpuscular Hemoglobin Concent 33.2, Red Cell Distribution Width 14.2, Platelet Count 155, Neutrophils (%) (Auto) 73.0H, Lymphocytes (%) (Auto) 15.7L, Monocytes (%) (Auto) 10.3H, Eosinophils (%) (Auto) 0.4, Basophils (%) (Auto) 0.4, Neutrophils # (Auto) 3.5, Lymphocytes # (Auto) 0.8L, Monocytes # (Auto) 0.5, Eosinophils # (Auto) 0.0, Basophils # (Auto) 0.0, Nucleated Red Blood Cells % (auto) 0.0, Anion Gap 8, Glomerular Filtration Rate > 60.0, Blood Urea Nitrogen 22H, Creatinine 0.79, Sodium Level 140, Potassium Level 2.8*L, Chloride Level 102, Carbon Dioxide Level 30, Calcium Level 8.2L, C- Reactive Protein, Quantitative 10.00H 12/04/18 15:57: Lactic Acid Level 1.6 CBC/BMP Laboratory Tests 12/04/18 15:36 Red Blood Count 4.92, Mean Corpuscular Volume 79.7 L, Mean Corpuscular Hemoglobin 26.4 L, Mean Corpuscular Hemoglobin Concent 33.2, Red Cell Distribution Width 14.2, Neutrophils (%) (Auto) 73.0 H, Lymphocytes (%) (Auto) 15.7 L, Monocytes (%) (Auto) 10.3 H, Eosinophils (%) (Auto) 0.4, Basophils (%) (Auto) 0.4, Neutrophils # (Auto) 3.5, Lymphocytes # (Auto) 0.8 L, Monocytes # (Auto) 0.5, Eosinophils # (Auto) 0.0, Basophils # (Auto) 0.0, Calcium Level 8.2 L Microbiology Microbiology 12/04/18 Blood Culture, Received Pending 12/04/18 Blood Culture, Received Pending Home Medications Scheduled Buprenorphine/Naloxone (Suboxone 8-2 mg) 1 Mis Mis, 2 STRIP SL DAILY, (Reported) TOTAL OF THREE STRIPS DAILY Buprenorphine/Naloxone (Suboxone 8-2 mg) 1 Mis Mis, 1 STRIP SL QHS, (Reported) TOTAL OF THREE STRIPS DAILY Bupropion HCl (Bupropion HCl ER) 150 Mg Tab, 300 MG PO DAILY, (Reported) CALLING IN AM TO VERIFY RELEASE (ER?) Gabapentin (Gabapentin) 800 Mg Tab, 800 MG PO QID, (Reported) Omeprazole (Omeprazole) 20 Mg Cap, 20 MG PO DAILY, (Reported) Scheduled PRN (Excedrin Extra Strength 250-250-65 mg) 1 Tab Tab, 1 TAB PO DAILY PRN for MIGRAINE, (Reported) Meloxicam (Mobic) 15 Mg Tab, 15 MG PO DAILY PRN for PAIN, (Reported) Allergies Coded Allergies: No Known Allergies (Verified , 07/17/18) NATHALY MORRIS MD Dec 04, 2018 19:17
[2018-12-04] MEDS ORDERED: LR 1,000 ML IV SCH (20:00)
[2018-12-04] MEDS ORDERED: PERCOCET 5MG/325MG TAB PO PRN (20:00)
[2018-12-04] MEDS ORDERED: MEPERIDINE INJ 25 MG/ML VIAL (J2175) IV PRN (20:00)
[2018-12-04] MEDS ORDERED: METOCLOPRAMIDE INJ 10MG/2ML VIAL (J2765) IV PRN (20:00)
[2018-12-04] MEDS ORDERED: ONDANSETRON 4MG/2ML VIAL (J2405) IV PRN (20:00)
[2018-12-04] MEDS ORDERED: MIDAZOLAM INJ 2 MG/2 ML VIAL (J2250) As Ordered ONE (20:01)
[2018-12-04] MEDS ORDERED: ONDANSETRON 4MG/2ML VIAL (J2405) As Ordered ONE (20:01)
[2018-12-04] MEDS ORDERED: fentaNYL 100 MCG/2 ML INJECTION (J3010) As Ordered ONE ×3 (20:01→20:43)
[2018-12-04] MEDS ORDERED: LIDOCAINE 2% INJ 100 MG/5 ML SDV (FOR ANES.) As Ordered ONE (20:01)
[2018-12-04] MEDS ORDERED: PROPOFOL 200 MG/20 ML VIAL As Ordered ONE ×2 (20:01→20:02)
--- NOTE | 2018-12-04 20:19 | ROOPDOC ---
[facility] Report Of Operation Report of Operation DATE OF PROCEDURE: 12/04/18 PREPROCEDURE DIAGNOSES: Right elbow, forearm cellulitis and abscess. POSTPROCEDURE DIAGNOSES: Same. PROCEDURE: Incision and drainage, right elbow and forearm abscess. SURGEON: Ash Erwin MD BOTTOM STEEP TENDER: ANESTHESIA: Monitored anesthesia care with local anesthesia using 1% lidocaine with epinephrine. ESTIMATED BLOOD LOSS: Approximately 5 mL. COMPLICATIONS: none. REMARKS: 33-year-old female IV drug use or therefore day history of redness and swelling on her right elbow and forearm PROCEDURE NOTE: Wide area of induration on the right elbow extending 7 x 6 cm cellulitis almost circumferential area of cellulitis. About 4 cm area of fluctuance at the center. A 3 x 3 cm area of induration and cellulitis on the right forearm.. DESCRIPTION OF PROCEDURE: Patient received clindamycin 600 mg IV during her stay in the emergency room. She was brought to the operating room, laid supine on the table, her right arm on a armrest. Sequential compression device was placed in both lower extremities for DVT prophylaxis. IV sedation was started. She was monitored throughout the procedure. Her right arm was done prep and mutual stroke passion. A surgical timeout was performed confirming patient's name, procedure, laterality and other pertinent information. We started on the elbow induration and abscess. This was widely infiltrated with anesthesia include using 1% lidocaine containing epinephrine. It'll mutual incision was then created with immediate termination of all smelling purulent fluid. Cultures were obtained. A cruciate piece of skin was taken out. The cavity was probed with a hemostat with another deeper cavity located superiorly above the elbow crease was found and evacuated. This was irrigated temporarily packed . The abscess over the forearm/wrist was also incised in training in similar fashion occur infiltration local anesthesia. This was smaller and it's a simple cavity. Probing the wound did not yield any inoculations or for deeper abscess . After checking for adequate hemostasis the wound cavities were packed with one up in nursing home or in gauze. Bulky gauze dressing and Garfield Neil Rolleston used coding session. Patient was improperly awakened, extubated by recovery rooms table ASH ERWIN MD Dec 04, 2018 20:19
[2018-12-04] MEDS: fentaNYL 100 MCG/2 ML INJECTION (J3010) IV PRN ×8 (20:25→21:00)
[2018-12-04] MEDS ORDERED: PERCOCET 5MG/325MG TAB As Ordered ONE (20:28)
[2018-12-04] MEDS ORDERED: KETOROLAC 30 MG/ML VIAL (J1885) As Ordered ONE (20:28)
[2018-12-04] MEDS ORDERED: KETOROLAC 30 MG/ML VIAL (J1885) IV PRN (20:30)
[2018-12-04] MEDS ORDERED: NORCO, ANEXSIA 5/325MG TABLET (HYDROcodone/ACETAMINOPHEN) PO PRN (20:30)
[2018-12-04] MEDS ORDERED: MORPHINE 4 MG/ML 1ML VIAL/SYRINGE (J2270) IV PRN (20:30)
[2018-12-04 21:30] VITALS: BP_SYST 102; BP_SYST 119; BP_DIAS 57; BP_DIAS 59
[2018-12-04] MEDS ORDERED: BUPR15TASR PO (22:08)
[2018-12-04 22:30] VITALS: BP 132/60
[2018-12-04] MEDS: GABAPENTIN 400 MG CAP PO SCH (22:58)
[2018-12-04] MEDS: CLINDAMYCIN 600 MG in APPROPRIATE DILUENT 1 EA IV SCH (22:58)
[2018-12-04] MEDS: POTASSIUM CHLORIDE 10 MEQ SR TABLET PO SCH (22:58)
[2018-12-04] MEDS ORDERED: CLINDAMYCIN 600 MG in APPROPRIATE DILUENT 1 EA IV SCH (23:00)
[2018-12-04] MEDS: NORCO, ANEXSIA 5/325MG TABLET (HYDROcodone/ACETAMINOPHEN) PO PRN (23:20)
[2018-12-04 23:30] VITALS: BP 122/62
[2018-12-05 00:30] VITALS: BP 94/60
[2018-12-05 01:30] VITALS: BP 90/60
[2018-12-05 02:30] VITALS: BP 92/64
[2018-12-05] MEDS: CLINDAMYCIN 600 MG in APPROPRIATE DILUENT 1 EA IV SCH ×2 (04:44→11:31)
[2018-12-05 06:08] LABS: BASO % 0.3 % (0.0-1.0); EOS % 0.3 % (0.0-3.0); HEMATOCRIT 33.5 % (36.0-47.0); HEMOGLOBIN 11.1 g/dl (12.0-15.5); LYMPH # 1.3 10^3/uL (1.5-4.5); LYMPH % 35.1 % (24.0-44.0); MEAN CORPUSCULAR HEMOGLOBIN 26.1 pg (27.0-33.0); MEAN CORPUSCULAR HGB CONC 33.1 g/dl (32.0-36.5); MEAN CORPUSCULAR VOLUME 78.6 fl (80.0-96.0); MONO # 0.5 10^3/uL (0.0-0.8); MONO % 13.8 % (0.0-5.0); NEUTROPHILS # 1.8 10^3/uL (1.8-7.7); NEUTROPHILS % 50.2 % (36.0-66.0); PLATELET COUNT, AUTOMATED 153 10^3/uL (150-450); RED BLOOD COUNT 4.26 10^6/uL (4.00-5.40); WHITE BLOOD COUNT 3.6 10^3/uL (4.0-10.0)
[2018-12-05 06:29] LABS: BLOOD UREA NITROGEN 22 MG/DL (7-18); CALCIUM LEVEL 8.1 MG/DL (8.5-10.1); CARBON DIOXIDE LEVEL 28 MEQ/L (21-32); CHLORIDE LEVEL 104 MEQ/L (98-107); CREATININE FOR GFR 0.75 MG/DL (0.55-1.30); GLOMERULAR FILTRATION RATE > 60.0 (>60); GLUCOSE, FASTING 94 MG/DL (70-100); POTASSIUM SERUM 3.2 MEQ/L (3.5-5.1); SODIUM LEVEL 139 MEQ/L (136-145)
[2018-12-05 06:30] VITALS: BP 92/60
[2018-12-05] MEDS: GABAPENTIN 400 MG CAP PO SCH ×2 (08:09→13:13)
[2018-12-05] MEDS: POTASSIUM CHLORIDE 10 MEQ SR TABLET PO SCH (08:09)
[2018-12-05] MEDS: NORCO, ANEXSIA 5/325MG TABLET (HYDROcodone/ACETAMINOPHEN) PO PRN ×2 (08:14→13:14)
--- NOTE | 2018-12-05 08:51 | REP ---
Clinical: Antecubital pain and swelling. IVDA. Technique: Real time amador scale and color ultrasound examination using curved array transducer. Findings: Directed ultrasound examination of the antecubital fossa demonstrates a complex fluid collection with surrounding hyperemia and subcutaneous edema consistent with abscess measuring 6.6 x 1.8 x 3.3 cm. Impression: Antecubital abscess. Electronically Signed by Otoniel Linares MD 12/05/2018 08:43 A
[2018-12-05] MEDS ORDERED: OMEPRAZOLE 20 MG CAP PO SCH (09:00)
[2018-12-05 10:00] VITALS: BP 102/53
[2018-12-05] MEDS ORDERED: BACT800T5 PO (11:48)
[2018-12-05] MEDS ORDERED: IBUP-1022 PO (11:48)
--- NOTE | 2018-12-05 13:07 | IPNPDOC ---
Subjective General Date/Time Seen The patient was seen on 12/05/18 at 12:40. Subject Chief Complaint/History The patient is a 33-year-old female admitted with a reason for visit of Abscess Of Antecubital Fossa; Heroin Abuse. 33 yo female IV drug cocaine user with past skin abscess history who last injected 5 days prior to admission presented at [facility] with 4 day history of right arm swelling and small area of right wrist swelling. Patient is s/p drainage. She reported 3/10 pain in right anterior cubital fossa. Denies any fever, chills, chest pain, lightheadedness, dizziness, or palpitation. Described that her last BM was a few days ago. She has no other complaints. Current Medications Current Medications Current Medications Acetaminophen/ Hydrocodone Bitart (Weems, Anexsia 5/325) 1 tab Q4HP PRN PO pain; Start 12/04/18 at 20:30 Acetaminophen/ Hydrocodone Bitart (Weems, Anexsia 5/325) 2 tab Q4HP PRN PO severe pain Last administered on 12/05/18at 08:14; Start 12/04/18 at 20:30 Clindamycin Phosphate 600 mg/ IV Miscellaneous Supplies 50 ml @ 100 mls/hr Q6H IV ; Start 12/04/18 at 23:00; Stop 12/04/18 at 23:00; Status DC Clindamycin Phosphate 600 mg/ IV Miscellaneous Supplies 50 ml @ 100 mls/hr Q6H IV Last administered on 12/05/18at 11:31; Start 12/04/18 at 23:00 Fentanyl Citrate (Sublimaze) 25 mcg Q5MP PRN IV MODERATE PAIN (PS 4-7) Last administered on 12/04/18at 20:40; Start 12/04/18 at 20:00; Stop 12/04/18 at 21:09; Status DC Fentanyl Citrate (Sublimaze) 25 mcg Q5MP PRN IV MODERATE PAIN (PS 4-7) Last administered on 12/04/18at 21:00; Start 12/04/18 at 21:10; Stop 12/04/18 at 21:45; Status DC Gabapentin (Neurontin) 800 mg QID PO Last administered on 12/05/18at 08:09; Start 12/04/18 at 21:00 Home Med (Med Rec Complete!) ASDIRECTED XX ; Start 12/04/18 at 18:15; Stop 12/04/18 at 18:19; Status DC Ketorolac Tromethamine (ToRADol) 30 mg Q6HP PRN IV pain Last administered on 12/04/18at 20:30; Start 12/04/18 at 20:30; Stop 12/09/18 at 20:29 Lactated Ringer's 1,000 ml @ 100 mls/hr Q10H IV ; Start 12/04/18 at 20:00; Stop 12/04/18 at 21:30; Status DC Meperidine HCl (Demerol) 12.5 mg Q5MP PRN IV SHIVERING; Start 12/04/18 at 20:00; Stop 12/04/18 at 21:30; Status DC Metoclopramide HCl (REGLAN INJection) 10 mg Q6HP PRN IV NAUSEA OR VOMITING; Start 12/04/18 at 20:00; Stop 12/04/18 at 21:30; Status DC Morphine Sulfate (Morphine Sulfate Inj) 4 mg Q4HP PRN IV severe pain; Start 12/04/18 at 20:30; Stop 12/05/18 at 07:12; Status DC Omeprazole (PriLOSEC) 20 mg DAILY PO Last administered on 12/05/18at 08:09; Start 12/05/18 at 09:00 Ondansetron HCl (ZOFRAN INJection) 4 mg Q4HP PRN IV NAUSEA OR VOMITING; Start 12/04/18 at 20:00; Stop 12/04/18 at 21:30; Status DC Oxycodone/ Acetaminophen (Percocet 5mg/ 325mg Tablet) 1 tab ASDIRECTED PRN PO MILD/MODERATE PAIN (PS 1-7) Last administered on 12/04/18at 20:25; Start 12/04/18 at 20:00; Stop 12/04/18 at 21:30; Status DC Potassium Chloride (Micro-K Extencaps) 40 meq BID PO Last administered on 12/05/18at 08:09; Start 12/04/18 at 21:00 Allergies Coded Allergies: No Known Allergies (Verified , 07/17/18) Objective Physical Examination Examination GENERAL APPEARANCE:[Patient seen, laying in bed, awake but appears to be tired. No acute distress]. SKIN: [Warm and moist]. HEENT: [Normocephalic, atraumatic. [place] palpebral conjunctiva, anicteric sclerae. Lips and mucosa appear moist]. NECK: [Supple. No obvious jugular venous distention]. LUNGS: [Clear to auscultation bilaterally. No wheezing appreciated]. HEART: [No chest wall abnormalities. Regular rate and rhythm with no murmurs appreciated]. ABDOMEN: Abdomen is soft. Nondistended. No noticeable guarding. No grimacing with palpation. . EXTREMITIES: [Right anterior cubital fossa about 2cm open wound with packing; about 6X5cm diameter circular fluctuance with erythema. Right wrist 1-2cm open wound with packing noted. No edema identified]. Vital Signs Vital Signs Date Time Temp Pulse Resp B/P (MAP) Pulse Ox O2 Delivery O2 Flow Rate FiO2 12/05/18 10:00 98.0 79 16 102/53 (69) 98 12/04/18 19:09 Room Air I&Os I&O- Last 24 Hours up to 6 AM 12/05/18 06:00 Intake Total 700 ml Output Total 155 ml Balance 545 ml Laboratory Data Labs 24H Laboratory Tests 2 12/04/18 15:35: Erythrocyte Sedimentation Rate 59H 12/04/18 15:36: Immature Granulocyte % (Auto) 0.2, White Blood Count 4.8, Red Blood Count 4.92, Hemoglobin 13.0, Hematocrit 39.2, Mean Corpuscular Volume 79.7L, Mean Corpuscular Hemoglobin 26.4L, Mean Corpuscular Hemoglobin Concent 33.2, Red Cell Distribution Width 14.2, Platelet Count 155, Neutrophils (%) (Auto) 73.0H, Lymphocytes (%) (Auto) 15.7L, Monocytes (%) (Auto) 10.3H, Eosinophils (%) (Auto) 0.4, Basophils (%) (Auto) 0.4, Neutrophils # (Auto) 3.5, Lymphocytes # (Auto) 0.8L, Monocytes # (Auto) 0.5, Eosinophils # (Auto) 0.0, Basophils # (Auto) 0.0, Nucleated Red Blood Cells % (auto) 0.0, Anion Gap 8, Glomerular Filtration Rate > 60.0, Blood Urea Nitrogen 22H, Creatinine 0.79, Sodium Level 140, Potassium Level 2.8*L, Chloride Level 102, Carbon Dioxide Level 30, Calcium Level 8.2L, C- Reactive Protein, Quantitative 10.00H 12/04/18 15:57: Lactic Acid Level 1.6 12/05/18 05:49: Immature Granulocyte % (Auto) 0.3, White Blood Count 3.6L, Red Blood Count 4.26, Hemoglobin 11.1L, Hematocrit 33.5L, Mean Corpuscular Volume 78.6L, Mean Corpuscular Hemoglobin 26.1L, Mean Corpuscular Hemoglobin Concent 33.1, Red Cell Distribution Width 14.4, Platelet Count 153, Neutrophils (%) (Auto) 50.2, Lymphocytes (%) (Auto) 35.1, Monocytes (%) (Auto) 13.8H, Eosinophils (%) (Auto) 0.3, Basophils (%) (Auto) 0.3, Neutrophils # (Auto) 1.8, Lymphocytes # (Auto) 1.3L, Monocytes # (Auto) 0.5, Eosinophils # (Auto) 0.0, Basophils # (Auto) 0.0, Nucleated Red Blood Cells % (auto) 0.0, Anion Gap 7L, Glomerular Filtration Rate > 60.0, Blood Urea Nitrogen 22H, Creatinine 0.75, Sodium Level 139, Potassium Level 3.2L, Chloride Level 104, Carbon Dioxide Level 28, Calcium Level 8.1L CBC/BMP Laboratory Tests 12/04/18 15:36 Red Blood Count 4.92, Mean Corpuscular Volume 79.7 L, Mean Corpuscular Hemoglobin 26.4 L, Mean Corpuscular Hemoglobin Concent 33.2, Red Cell Distribution Width 14.2, Neutrophils (%) (Auto) 73.0 H, Lymphocytes (%) (Auto) 15.7 L, Monocytes (%) (Auto) 10.3 H, Eosinophils (%) (Auto) 0.4, Basophils (%) (Auto) 0.4, Neutrophils # (Auto) 3.5, Lymphocytes # (Auto) 0.8 L, Monocytes # (Auto) 0.5, Eosinophils # (Auto) 0.0, Basophils # (Auto) 0.0, Calcium Level 8.2 L 12/05/18 05:49 Red Blood Count 4.26, Mean Corpuscular Volume 78.6 L, Mean Corpuscular Hemoglobin 26.1 L, Mean Corpuscular Hemoglobin Concent 33.1, Red Cell Distribution Width 14.4, Neutrophils (%) (Auto) 50.2, Lymphocytes (%) (Auto) 35.1, Monocytes (%) (Auto) 13.8 H, Eosinophils (%) (Auto) 0.3, Basophils (%) (Auto) 0.3, Neutrophils # (Auto) 1.8, Lymphocytes # (Auto) 1.3 L, Monocytes # (Auto) 0.5, Eosinophils # (Auto) 0.0, Basophils # (Auto) 0.0, Calcium Level 8.1 L Microbiology Microbiology 12/04/18 Blood Culture, Received Pending 12/04/18 Blood Culture, Received Pending 12/04/18 Gram Stain - Final, Resulted 12/04/18 Abscess Culture - Preliminary, Resulted Staphylococcus Aureus 12/04/18 Anaerobic Culture, Resulted Pending Impression Right antecubital fossa and right wrist abscess s/p I&D Patient still has right antecubital fossa erythema and fluctuance. Dressings were changed by the surgery team, and blood mild amount of blood noted in Kerlix. Patient desires to be d/c home. Abscess culture pending and blood culture pending. As the source of the infection is likely from skin mark, and that she had past abscess from IV drug injection that grew staph aureus, pt will be d/c home with TMP-SMX for 10 days of coverage. She will also be d/c home w ith 14 days of 800mg Ibuprofen Q6h PRN pain for pain control as pt also on Suboxone as outpatient. She will do packing changes with iodoform gauze. Change antecubital fossa dressing daily. and keep gauze on wrist area until it's dry and healed. Patient may shower, and follow up with her outpatient PCP in 7 days. Plan / VTE VTE Prophylaxis Ordered?: Yes (OOB encourage ambulation) JOANNE DAVENPORT DO Dec 05, 2018 13:07
== END 2018-12-05 14:00 | disposition home or self-care (01) ==
LOC: M ED 14:49 → M SDC 20:09 → M MSPAV 21:25 → M SDC 12-05 14:00
PROVIDERS: ATTEND Surgery
DX: L02.413 Cutaneous abscess of right upper limb (principal); B95.61 Methicillin susceptible Staphylococcus aureus infection as the cause of diseases classified elsewhere; F11.10 Opioid abuse, uncomplicated; F14.10 Cocaine abuse, uncomplicated; D64.9 Anemia, unspecified; F17.210 Nicotine dependence, cigarettes, uncomplicated; Z79.899 Other long term (current) drug therapy
CPT/HCPCS: 10060; 23930; 36415; 76882; 80048; 81025; 83605; 85025; 85652; 86140; 87040; 87070; 87075; 87076; 87077; 87186; 87205; 96365; 96374; 96376; 99285; J1885; J2250; J2405; J3010

== ENCOUNTER → 2019-03-02 | Outpatient (REF) | payer OTHER ==
[~2019-03-02] MED LIST changes: +BUPR15TASR PO; +EXCETAB81 PO; +HYDR-3715 PO; +IBUP-1022 PO; +MOBI15TA PO; -NORCOTAB PO; +OMEP20CA3 PO
[2019-03-02 14:30] LABS: BLOOD UREA NITROGEN 15 MG/DL (7-18); CALCIUM LEVEL 8.1 MG/DL (8.5-10.1); CARBON DIOXIDE LEVEL 27 MEQ/L (21-32); CHLORIDE LEVEL 110 MEQ/L (98-107); FREE T4 0.87 NG/DL (0.76-1.46); GLOMERULAR FILTRATION RATE > 60.0 (>60); GLUCOSE, FASTING 120 MG/DL (70-100); POTASSIUM SERUM 3.9 MEQ/L (3.5-5.1); SODIUM LEVEL 143 MEQ/L (136-145)
== END ==
LOC: M LAB REF 12:59
PROVIDERS: ATTEND Nurse Practitioner Primary Care
DX: E03.9 Hypothyroidism, unspecified (principal)

== ENCOUNTER 2019-12-10 11:55 | Emergency (ER) | payer MEDICAID, OTHER ==
[~2019-12-10] VITALS: Ht 160 cm; Wt 81.8 kg
[~2019-12-10 11:55] MED LIST changes: +OMEP1CAP73 PO; -OMEP20CA3 PO
[2019-12-10] MEDS ORDERED: GABA-843 PO (12:44)
[2019-12-10] MEDS ORDERED: CLON-412 PO (12:44)
[2019-12-10] MEDS ORDERED: LEVO25TA5 PO (12:44)
[2019-12-10 12:47] LABS: BASO % 0.2 % (0.0-1.0); EOS % 0.1 % (0.0-3.0); HEMATOCRIT 33.5 % (36.0-47.0); LYMPH # 0.6 10^3/uL (1.5-5.0); LYMPH % 6.4 % (24.0-44.0); MEAN CORPUSCULAR HEMOGLOBIN 28.1 pg (27.0-33.0); MEAN CORPUSCULAR HGB CONC 32.8 g/dl (32.0-36.5); MEAN CORPUSCULAR VOLUME 85.7 fl (80.0-96.0); MONO # 1.5 10^3/uL (0.0-0.8); MONO % 15.4 % (0.0-5.0); NEUTROPHILS # 7.6 10^3/uL (1.5-8.5); NEUTROPHILS % 77.5 % (36.0-66.0); PLATELET COUNT, AUTOMATED 109 10^3/uL (150-450); RED BLOOD COUNT 3.91 10^6/uL (4.00-5.40); WHITE BLOOD COUNT 9.8 10^3/uL (4.0-10.0)
[2019-12-10 13:10] LABS: ALBUMIN 3.1 GM/DL (3.2-5.2); ALT/SGPT 14 U/L (12-78); BILIRUBIN,DIRECT 0.3 MG/DL (0.0-0.2); BILIRUBIN,TOTAL 0.9 MG/DL (0.2-1.0); LIPASE 47 U/L (73-393); TOTAL PROTEIN 6.3 GM/DL (6.4-8.2)
[2019-12-10] MEDS ORDERED: ONDANSETRON 4MG/2ML VIAL (J2405) IV ONE (13:30)
[2019-12-10 13:43] LABS: HCG, SERUM QUANTITATIVE < 1.0 MIU/ML
[2019-12-10 14:17] LABS: INFLUENZA A AMPLIFICATION NEGATIVE (NEGATIVE); INFLUENZA B AMPLIFICATION NEGATIVE (NEGATIVE)
[2019-12-10] MEDS ORDERED: POTASSIUM CHLORIDE 10 MEQ SR TABLET PO ONE (16:30)
[2019-12-10] MEDS ORDERED: ISOVUE-370 76% 100ML VIAL (Q9967) As Ordered ONE (16:36)
[2019-12-10] MEDS ORDERED: MIRA3350 PO (18:05)
[2019-12-10] MEDS ORDERED: KEFL500C17 PO (18:05)
[2019-12-10] MEDS ORDERED: MIRALAX *UNIT DOSE* 17GM PACKET PO SCH (18:15)
[2019-12-10] MEDS ORDERED: CEPHALEXIN 500 MG CAP PO ONE (18:15)
[2019-12-10] MEDS ORDERED: MIRALAX *UNIT DOSE* 17GM PACKET PO ONE (18:15)
[2019-12-10 18:25] VITALS: BP 97/69
--- NOTE | 2019-12-11 07:32 | REP ---
ABDOMINAL SERIES: Supine and erect views of the abdomen demonstrate no free air and no evidence for small bowel obstruction. No dilated small bowel loops are seen. There is no air fluid levels are seen on the upright view, except in the region of the stomach. IUD is seen in the pelvis. Metallic clips are seen in the right upper quadrant. There are mild degenerative changes of the lumbar spine. An accompanying view of the chest demonstrate no acute infiltrate. The heart and mediastinum are within normal limits. IMPRESSION: No free air or obstruction. Electronically Signed by Ish Vazquez MD 12/11/2019 12:01 P
--- NOTE | 2019-12-11 07:55 | REP ---
CT ABDOMEN AND PELVIS WITH IV CONTRAST: TECHNIQUE: Axial contrast enhanced images from the lung bases to the pubic symphysis using 100 mL Isovue 370 intravenous contrast material with multiplanar reformations. Comparison 10/31/2015. There are dependent atelectatic changes in both lung bases. The liver and spleen are mildly enlarged, liver measures approximately 17.3 cm in length and the spleen approximately 16 cm in length. No intrinsic abnormalities are seen. Adrenal glands are normal. Pancreas demonstrates no mass or evidence of pancreatic duct diltation. The patient has had a prior cholecystectomy. The common bile duct does not appear to be dilated. There is mild cortical atrophy of the right kidney. There is no hydronephrosis bilaterally. 1 cm cyst is seen in the upper pole of the left kidney. There is ill-defined hypodensity in the upper pole of the left kidney posteriorly and peripherally and also anteriorly of the mid left kidney. There is perinephric haziness of the left kidney. The findings suggest possible pyelonephritis. There is no abdominal aortic aneurysm. There are subcentimeter periaortic lymph nodes present as well as portal lymph nodes, but I do not see significant lymphadenopathy. There is no free air or free fluid. There is no bowel wall thickening. No pelvic mass is seen. IUD is seen in the uterus. Ovaries appear unremarkable. Urinary bladder is mild to moderately distended and appears unremarkable. There is spondylolysis of L5 with mild anterior grade 1 spondylolisthesis of L5 on S1 with moderate degenerative disc changes of L4-5 and L5-S1. IMPRESSION: Mild hepatosplenomegaly. No hydronephrosis. There are findings suggesting left sided pyelonephritis. Bibasilar dependent atelectatic changes. No free air or free fluid and no evidence of bowel obstruction. Electronically Signed by Ish Vazquez MD 12/11/2019 01:21 P
== END 2019-12-10 18:27 | disposition home or self-care (01) ==
LOC: M ED 11:55
DX: N10 Acute pyelonephritis (principal); R16.2 Hepatomegaly with splenomegaly, not elsewhere classified; K59.01 Slow transit constipation; F32.9 Major depressive disorder, single episode, unspecified; Z98.84 Bariatric surgery status; F17.218 Nicotine dependence, cigarettes, with other nicotine-induced disorders
CPT/HCPCS: 74021; 74177; 80047; 80076; 81001; 83690; 84702; 85025; 87088; 87186; 87502; 96374; 99284; J2405; Q9967

== ENCOUNTER → 2020-02-13 | Outpatient (CLI) | payer MEDICAID ==
[~2020-02-13] MED LIST changes: +CLON-412 PO; +GABA-843 PO; +KEFL500C17 PO; +LEVO25TA5 PO; +MIRA3350 PO
[2020-02-13 17:14] LABS: BASO % 0.2 % (0.0-1.0); HEMATOCRIT 40.2 % (36.0-47.0); LYMPH % 25.4 % (24.0-44.0); MEAN CORPUSCULAR HEMOGLOBIN 27.5 pg (27.0-33.0); MEAN CORPUSCULAR HGB CONC 32.3 g/dl (32.0-36.5); MEAN CORPUSCULAR VOLUME 85.2 fl (80.0-96.0); MONO # 0.2 10^3/uL (0.0-0.8); MONO % 5.7 % (0.0-5.0); NEUTROPHILS # 2.8 10^3/uL (1.5-8.5); NEUTROPHILS % 67.7 % (36.0-66.0); PLATELET COUNT, AUTOMATED 117 10^3/uL (150-450); RED BLOOD COUNT 4.72 10^6/uL (4.00-5.40); WHITE BLOOD COUNT 4.1 10^3/uL (4.0-10.0)
[2020-02-13 17:24] LABS: ALBUMIN 3.8 GM/DL (3.2-5.2); ALT/SGPT 26 U/L (12-78); BILIRUBIN,TOTAL 0.4 MG/DL (0.2-1.0); BLOOD UREA NITROGEN 15 MG/DL (7-18); CALCIUM LEVEL 8.4 MG/DL (8.5-10.1); CARBON DIOXIDE LEVEL 27 MEQ/L (21-32); CHLORIDE LEVEL 109 MEQ/L (98-107); CHOLESTEROL LEVEL 134 MG/DL (<200); CHOLESTEROL RISK RATIO 4.187 (<5); CREATININE FOR GFR 0.74 MG/DL (0.55-1.30); FOLATE 9.5 NG/ML; GLOMERULAR FILTRATION RATE > 60.0 (>60); GLUCOSE, FASTING 99 MG/DL (70-100); HDL CHOLESTEROL 32 MG/DL (>40); LDL CHOLESTEROL 89 MG/DL (<100); NON-HDL-C 102 MG/DL; POTASSIUM SERUM 4.1 MEQ/L (3.5-5.1); SODIUM LEVEL 141 MEQ/L (136-145); TOTAL 25(OH) VITAMIN D 42.4 NG/ML (30.0-100.0); TOTAL PROTEIN 6.7 GM/DL (6.4-8.2); TRIGLYCERIDES LEVEL 63 MG/DL (<150); VITAMIN B12 LEVEL 338 PG/ML
== END ==
LOC: M WUC 12:26
PROVIDERS: ATTEND Family Medicine
DX: Z00.00 Encounter for general adult medical examination without abnormal findings (principal); Z98.84 Bariatric surgery status; E55.9 Vitamin D deficiency, unspecified

== ENCOUNTER → 2020-03-25 | Outpatient (CLI) | payer MEDICAID ==
[2020-03-25 11:58] LABS: BASO % 0.2 % (0.0-1.0); EOS % 0.2 % (0.0-3.0); HEMATOCRIT 40.6 % (36.0-47.0); HEMOGLOBIN 13.2 g/dl (12.0-15.5); LYMPH # 1.1 10^3/uL (1.5-5.0); LYMPH % 26.5 % (24.0-44.0); MEAN CORPUSCULAR HEMOGLOBIN 27.2 pg (27.0-33.0); MEAN CORPUSCULAR HGB CONC 32.5 g/dl (32.0-36.5); MEAN CORPUSCULAR VOLUME 83.7 fl (80.0-96.0); MONO # 0.4 10^3/uL (0.0-0.8); MONO % 8.8 % (0.0-5.0); NEUTROPHILS # 2.8 10^3/uL (1.5-8.5); NEUTROPHILS % 64.1 % (36.0-66.0); RED BLOOD COUNT 4.85 10^6/uL (4.00-5.40); WHITE BLOOD COUNT 4.3 10^3/uL (4.0-10.0)
[2020-03-25 11:59] LABS: PLATELET COUNT, AUTOMATED 98 10^3/uL (150-450)
== END ==
LOC: M WUC 10:22
PROVIDERS: ATTEND Family Medicine
DX: D69.6 Thrombocytopenia, unspecified (principal)

== ENCOUNTER 2020-10-15 04:00 | Emergency (ER) | payer OTHER ==
[~2020-10-15] VITALS: Ht 157.5 cm; Wt 59.0 kg
[2020-10-15 08:09] LABS: HEMATOCRIT 42.2 % (36.0-47.0); HEMOGLOBIN 13.7 g/dl (12.0-15.5); MEAN CORPUSCULAR HEMOGLOBIN 27.1 pg (27.0-33.0); MEAN CORPUSCULAR HGB CONC 32.5 g/dl (32.0-36.5); MEAN CORPUSCULAR VOLUME 83.4 fl (80.0-96.0); PLATELET COUNT, AUTOMATED 160 10^3/uL (150-450); RED BLOOD COUNT 5.06 10^6/uL (4.00-5.40); WHITE BLOOD COUNT 8.5 10^3/uL (4.0-10.0)
[2020-10-15 08:32] LABS: AMPHETAMINES LEVEL URINE POSITIVE (NEGATIVE); BARBITURATES URINE NEGATIVE (NEGATIVE); BENZODIAZEPINES URINE NEGATIVE (NEGATIVE); CANNABINOIDS URINE NEGATIVE (NEGATIVE); COCAINE METABOLITE URINE NEGATIVE (NEGATIVE); METHADONE URINE NEGATIVE (NEGATIVE); OPIATES URINE NEGATIVE (NEGATIVE); PHENCYCLIDINE URINE NEGATIVE (NEGATIVE)
[2020-10-15] MEDS ORDERED: BUPR450T PO (08:33)
[2020-10-15] MEDS ORDERED: GABA-845 PO (08:33)
[2020-10-15 08:46] LABS: HCG, SERUM QUALITATIVE NEGATIVE (NEGATIVE)
[2020-10-15 09:03] LABS: ACETAMINOPHEN LEVEL < 2.0 UG/ML (10.0-30.0); ALBUMIN 4.5 GM/DL (3.2-5.2); ALT/SGPT 24 U/L (12-78); BILIRUBIN,DIRECT 0.2 MG/DL (0.0-0.2); BILIRUBIN,TOTAL 0.7 MG/DL (0.2-1.0); BLOOD UREA NITROGEN 17 MG/DL (7-18); CALCIUM LEVEL 8.9 MG/DL (8.5-10.1); CARBON DIOXIDE LEVEL 25 MEQ/L (21-32); CHLORIDE LEVEL 106 MEQ/L (98-107); CREATININE FOR GFR 0.87 MG/DL (0.55-1.30); ETHYL ALCOHOL (ETHANOL) < 0.003 % (0.000-0.010); GLOMERULAR FILTRATION RATE > 60.0 (>60); GLUCOSE, FASTING 89 MG/DL (70-100); POTASSIUM SERUM 3.6 MEQ/L (3.5-5.1); SODIUM LEVEL 140 MEQ/L (136-145); TOTAL PROTEIN 7.6 GM/DL (6.4-8.2)
[2020-10-15] MEDS ORDERED: GABAPENTIN 400 MG CAP PO ONE (09:15)
[2020-10-15 12:47] VITALS: BP 141/84
[2020-10-15] MEDS ORDERED: BUPRENORPHINE/NALOXONE 8-2MG SUBLINGUAL TABLET(SUBOXONE) SL SCH (16:00)
[2020-10-16] MEDS ORDERED: buPROPion **XL** TABLET 150MG (WELLBUTRIN XL) PO SCH (09:00)
== END 2020-10-15 12:49 | disposition home or self-care (01) ==
LOC: M ED 04:00
DX: F19.10 Other psychoactive substance abuse, uncomplicated (principal); Z79.899 Other long term (current) drug therapy
CPT/HCPCS: 36415; 80048; 80076; 80307; 84443; 84703; 85027; 99284; G0480

== ENCOUNTER 2020-10-15 21:32 | Emergency (ER) | payer OTHER ==
[~2020-10-15 21:32] MED LIST changes: +BUPR450T PO; +GABA-845 PO
[2020-10-15 22:16] LABS: HEMATOCRIT 42.9 % (36.0-47.0); HEMOGLOBIN 13.7 g/dl (12.0-15.5); MEAN CORPUSCULAR HEMOGLOBIN 26.8 pg (27.0-33.0); MEAN CORPUSCULAR HGB CONC 31.9 g/dl (32.0-36.5); PLATELET COUNT, AUTOMATED 138 10^3/uL (150-450); RED BLOOD COUNT 5.11 10^6/uL (4.00-5.40); WHITE BLOOD COUNT 5.2 10^3/uL (4.0-10.0)
[2020-10-15 22:52] LABS: BLOOD UREA NITROGEN 19 MG/DL (7-18); CALCIUM LEVEL 8.9 MG/DL (8.5-10.1); CARBON DIOXIDE LEVEL 27 MEQ/L (21-32); CHLORIDE LEVEL 106 MEQ/L (98-107); CREATININE FOR GFR 0.72 MG/DL (0.55-1.30); GLOMERULAR FILTRATION RATE > 60.0 (>60); GLUCOSE, FASTING 92 MG/DL (70-100); POTASSIUM SERUM 3.3 MEQ/L (3.5-5.1); SODIUM LEVEL 138 MEQ/L (136-145)
--- NOTE | 2020-10-15 23:22 | REPVR ---
PROCEDURE INFORMATION: Exam: XR Complete Acute Abdomen Series Exam date and time: 10/15/2020 11:06 PM Age: 34 years old Clinical indication: Other: Constipation TECHNIQUE: Imaging protocol: XR complete acute abdomen series, including 2 or more views of the abdomen and a single view chest. COMPARISON: CR CHEST 2 VIEW 07/02/2017 2:36 PM FINDINGS: Lungs: Normal. No consolidation. Pleural space: Normal. No pneumothorax. Heart/Mediastinum: Normal. No cardiomegaly. Gastrointestinal tract: Mild gas in the GI tract, greatest in the colon without abnormal dilatation. No abnormal air-fluid levels. No excessive stool is seen. Intraperitoneal space: No free air. Radiopaque sutures are noted in the left upper quadrant. Organs: Status post cholecystectomy. IUD in the central pelvis. Bones/joints: Normal. No acute fracture. Soft tissues: Normal. IMPRESSION: 1. Negative chest. 2. IUD in the central pelvis. 3. Status post cholecystectomy and surgery in the left upper quadrant to the left of midline. 4. Otherwise negative abdomen with mild gas which is within normal limits. Electronically signed by: Evangelist Holland On 10/15/2020 23:22:18 PM
[2020-10-15 23:55] VITALS: BP 122/80
== END 2020-10-15 23:55 | disposition home or self-care (01) ==
LOC: M ED 21:32
DX: R10.9 Unspecified abdominal pain (principal); F19.10 Other psychoactive substance abuse, uncomplicated; K59.00 Constipation, unspecified; R53.83 Other fatigue; Z30.430 Encounter for insertion of intrauterine contraceptive device; Z79.899 Other long term (current) drug therapy

== ENCOUNTER 2020-10-16 07:16 | Inpatient (IN) | payer MEDICAID, OTHER ==
[~2020-10-16] VITALS: Ht 160 cm; Wt 65.5 kg
[~2020-10-16 07:16] MED LIST changes: +GABA-282 PO; -GABA-843 PO
[2020-10-16] MEDS ORDERED: LORazepam 2 MG/ML VIAL IV STA (07:21)
[2020-10-16 07:46] LABS: HEMATOCRIT 45.3 % (36.0-47.0); HEMOGLOBIN 14.1 g/dl (12.0-15.5); MEAN CORPUSCULAR HEMOGLOBIN 26.8 pg (27.0-33.0); MEAN CORPUSCULAR HGB CONC 31.1 g/dl (32.0-36.5); MEAN CORPUSCULAR VOLUME 86.1 fl (80.0-96.0); PLATELET COUNT, AUTOMATED 146 10^3/uL (150-450); RED BLOOD COUNT 5.26 10^6/uL (4.00-5.40); WHITE BLOOD COUNT 6.6 10^3/uL (4.0-10.0)
[2020-10-16 08:20] LABS: RSV AMPLIFICATION NEGATIVE (NEGATIVE)
[2020-10-16 08:23] LABS: HCG, SERUM QUALITATIVE NEGATIVE (NEGATIVE)
[2020-10-16 08:34] LABS: ACETAMINOPHEN LEVEL < 2.0 UG/ML (10.0-30.0); ALBUMIN 4.3 GM/DL (3.2-5.2); ALT/SGPT 34 U/L (12-78); BILIRUBIN,DIRECT 0.1 MG/DL (0.0-0.2); BILIRUBIN,TOTAL 0.5 MG/DL (0.2-1.0); BLOOD UREA NITROGEN 22 MG/DL (7-18); CALCIUM LEVEL 8.7 MG/DL (8.5-10.1); CARBON DIOXIDE LEVEL 23 MEQ/L (21-32); CHLORIDE LEVEL 106 MEQ/L (98-107); CREATININE FOR GFR 1.09 MG/DL (0.55-1.30); ETHYL ALCOHOL (ETHANOL) < 0.003 % (0.000-0.010); GLOMERULAR FILTRATION RATE > 60.0 (>60); GLUCOSE, FASTING 145 MG/DL (70-100); POTASSIUM SERUM 3.9 MEQ/L (3.5-5.1); SALICYLATE LEVEL 4.7 MG/DL (5.0-30.0); SODIUM LEVEL 140 MEQ/L (136-145); TOTAL PROTEIN 7.6 GM/DL (6.4-8.2)
[2020-10-16 10:13] LABS: AMPHETAMINES LEVEL URINE POSITIVE (NEGATIVE); BARBITURATES URINE NEGATIVE (NEGATIVE); BENZODIAZEPINES URINE NEGATIVE (NEGATIVE); CANNABINOIDS URINE NEGATIVE (NEGATIVE); COCAINE METABOLITE URINE NEGATIVE (NEGATIVE); METHADONE URINE NEGATIVE (NEGATIVE); OPIATES URINE NEGATIVE (NEGATIVE); PHENCYCLIDINE URINE NEGATIVE (NEGATIVE)
--- NOTE | 2020-10-17 05:19 | ECGEPIP ---
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
[2020-10-17] MEDS ORDERED: EXCETAB33 PO (08:43)
[2020-10-17] MEDS: BUPRENORPHINE/NALOXONE 8-2MG SUBLINGUAL TABLET(SUBOXONE) SL SCH (09:57)
[2020-10-17] MEDS: buPROPion **XL** TABLET 150MG (WELLBUTRIN XL) PO SCH (09:58)
[2020-10-17] MEDS: GABAPENTIN 400 MG CAP PO SCH ×3 (09:58→20:18)
[2020-10-17] MEDS ORDERED: MAALOX 30 ML SUSP *UDC PO PRN (15:45)
[2020-10-17 17:07] VITALS: BP 126/82
[2020-10-17] MEDS: ACETAMINOPHEN TAB 650MG DOSE (2X325MG) PO PRN (19:08)
[2020-10-17] MEDS: traZODone 50 MG TAB PO PRN (20:18)
[2020-10-18] MEDS: ACETAMINOPHEN TAB 650MG DOSE (2X325MG) PO PRN ×3 (03:59→19:01)
[2020-10-18] MEDS: MOM 30ML SUSPENSION UDC PO PRN (03:59)
[2020-10-18 07:01] VITALS: BP 123/76
[2020-10-18] MEDS: GABAPENTIN 400 MG CAP PO SCH ×3 (08:33→20:24)
[2020-10-18] MEDS: buPROPion **XL** TABLET 150MG (WELLBUTRIN XL) PO SCH (08:34)
[2020-10-18] MEDS: BUPRENORPHINE/NALOXONE 8-2MG SUBLINGUAL TABLET(SUBOXONE) SL SCH ×2 (08:52→20:24)
[2020-10-18] MEDS ORDERED: buPROPion **XL** TABLET 150MG (WELLBUTRIN XL) PO SCH (09:00)
--- NOTE | 2020-10-18 14:15 | MHHPEPDOC ---
General Date Of Admission: Oct 16, 2020 Legal Status: 9.39 Chief Complaint "I jumped into the ortiz because I thought someone was trying to harm me." History of Present Illness HISTORY OF THE PRESENT ILLNESS: Patient is a 34 -year-old Single, Unemployed, Undomiciled , female, who was brought to [facility] (according to the ED) via ambulance after she jumped into the ortiz. Pt was apparently in the ortiz for 20-30 minutes prior to rescue. Pt was brought to [facility] soaked, no shoes and possibly high on substances. On interview she states that she was staying at her cousin's house and that she heard a noise and was hearing things that both her cousin and brother were telling her. She stated that she heard a 4-suero and that her family was talking about her, getting upset with her and then she became paranoid that people were after her and she ran to the ortiz to get away from them Psychiatric Review of Systems Depression (2 or more weeks): depressed mood, anhedonia, feelings of excess/g uilt, appetite changes, psychomotor changes, denies (denies SI/HI. Denies past gestures and attempts) Lisa (4 or more days of): flight of ideas, distractibility Psychosis: paranoia, disorganization PTSD: denies Anxiety: denies Past Psychiatric History Previous Psychiatric Diagnosis: "Substance Use Disorder" Previous Psychiatric Admissions: None prior. Suicide Attempts: None Psychiatric Follow-up: None Psychiatric medications: Wellbutrin, Gabapentin, Suboxone, Synthroid in the past Past Medical History Medical Problems Jennings bite on Left Foot - 1 st and 2nd digits Head Injury: No Seizures: No Hospitalizations: Yes Surgeries: Yes Family Medical/Psychiatric HX Medical Problems Dad - Bipolar, Liver and Throat Cancer Mother - Leukemia Psychiatric Disorders: Yes Addiction: Yes Suicide Attemps/Completions: No Addiction History nicotine, ecstasy (last use prior to admission "Linda:) Social History Childhood: Born in [place] to both parents. Both mother and father are , has a brother and half sister. Abuse/Trauma: Current Living Situation: Was staying with a cousin, states that she is suppose to buy her Grandmother's or brother home. This does not seem feasible as she is not employed Education: Did not graduate, only went to the 9th grade Employment: Not employed Social Support: Aunt and Credo. Legal: History of Incarceration, 12 months in alf, and numerous stays in nursing home (DUI, possession, driving without a license) Marital: Single has 2 children 10 and 15 they are not in her custody Mental Status Examination General Appearance: disheveled, ds/not appear stated age, hospital scubs/clothing Build: thin Demeanor: average Eye Contact: average Activity: average Behavior: cooperative Speech: clear Mood: depressed Affect: flat Thought Process: loose, flight of ideas, depressed Thought Content (Delusions): persecutory, denies SI, HI, AVH Thought Content (Other): none reported Thought Content (Aggressive): none reported Perception (Hallucinations): none reported Perception (Other): none reported Cognition (Impairment of): none reported Cognition(Intelligence Est.): borderline Oriented: Awake, Alert, Oriented times three Insight: fair Judgment: Fair Psychosis: Psychotic Perceptions (states she jumped into river because of people trying to get her) Diagnoses Unspecified Psychotic DIsorder Rule Out Methamphetamine Induced Psychotic Disorder Tobacco Use Disorder A-FIB/CHADSVASC A-FIB History Current/History of A-Fib/PAF?: No Assessment Patient is observed today with continued paranoia and bizarre thinking. She reports that she was hearing voices, prior to jumping to the river, stating that her Cousin and Brother were talking about her. She became afraid and jumped into the River to get away from the people that were going to harm her. She continues to have mild flight of ideas, paranoid thinking, some delusional thoughts. She is calm and cooperative in the interview, dressed appropriately in the interview. Speech is normal rate and rhythm., many times throughout the interview she cries, mild labile mood observed. She is requesting her Gabapentin increased and feels that she can return to [facility]. 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 We will medicate for symptomology and discharge when she is stable Initial Treatment Plan 1. Patient was admitted on a [9.39] status. 2. Complete history was obtained. 3. With patients permission, family will be contacted and database will be expanded. 4. Patients medication regimen will be reviewed and changed accordingly. 5. Patient will be provided with protected environment. 6. Patient will be treated with individual, group, and milieu therapies. 7. Patient will receive supportive psych-education. 8. Discharge planning will commence immediately. 9. Outpatient follow-up treatment will be strongly recommended. 10. The initial treatment plan will focus initially on: * altered thoughts * Substance use disorder * Risk for suicide. ESTIMATED LENGTH OF STAY: 3-5 DAYS. TIME SPENT COUNSELING AND COORDINATING INITIAL CARE: 60 minutes. Vital Signs Vital Signs Date Time Temp Pulse Resp B/P (MAP) Pulse Ox O2 Delivery O2 Flow Rate FiO2 10/18/20 07:01 96.6 98 18 123/76 (92) 100 Room Air Medications Scheduled Buprenorphine HCl/Naloxone HCl (Suboxone 8 mg-2 mg Sl Film) 1 Mis Mis, 2 STRIP SL DAILY, (Reported) TOTAL OF THREE STRIPS DAILY Buprenorphine HCl/Naloxone HCl (Suboxone 8 mg-2 mg Sl Film) 1 Mis Mis, 1 STRIP SL QHS, (Reported) TOTAL OF THREE STRIPS DAILY Bupropion HCl (Bupropion Xl) 450 Mg Tab.er.24h, 450 MG PO DAILY, (Reported) Gabapentin (Gabapentin) 400 Mg Capsule, 400 MG PO TID, (Reported) Scheduled PRN Aspirin/Acetaminophen/Caffeine (Excedrin Migraine Caplet) 1 Each Tablet, 1 TAB PO Q8H PRN for HEADACHE, (Reported) Allergies Coded Allergies: No Known Allergies (Verified , 10/15/20) ADRIAN GARZA NP Oct 18, 2020 14:09
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
[2020-10-18] MEDS: IBUPROFEN 400 MG TAB PO PRN (17:00)
[2020-10-18 17:59] VITALS: BP 117/64
[2020-10-18] MEDS: OLANZapine 5 MG TAB PO SCH (22:23)
[2020-10-19] MEDS: IBUPROFEN 400 MG TAB PO PRN ×2 (06:09→19:26)
[2020-10-19] MEDS: MOM 30ML SUSPENSION UDC PO PRN (06:09)
[2020-10-19 06:22] VITALS: BP 123/77
[2020-10-19] MEDS: GABAPENTIN 400 MG CAP PO SCH ×3 (08:23→21:13)
[2020-10-19] MEDS: buPROPion **XL** TABLET 150MG (WELLBUTRIN XL) PO SCH (08:23)
[2020-10-19] MEDS: BUPRENORPHINE/NALOXONE 8-2MG SUBLINGUAL TABLET(SUBOXONE) SL SCH ×2 (08:23→21:13)
[2020-10-19] MEDS: OLANZapine 5 MG TAB PO SCH ×2 (08:23→23:17)
[2020-10-19] MEDS: ACETAMINOPHEN TAB 650MG DOSE (2X325MG) PO PRN (09:59)
[2020-10-19 16:35] VITALS: BP 100/50
[2020-10-19] MEDS: traZODone 50 MG TAB PO PRN (21:13)
[2020-10-20 06:32] VITALS: BP 142/65
[2020-10-20] MEDS: MOM 30ML SUSPENSION UDC PO PRN (08:20)
[2020-10-20] MEDS: buPROPion **XL** TABLET 150MG (WELLBUTRIN XL) PO SCH (08:20)
[2020-10-20] MEDS: BUPRENORPHINE/NALOXONE 8-2MG SUBLINGUAL TABLET(SUBOXONE) SL SCH ×2 (08:20→20:22)
[2020-10-20] MEDS: OLANZapine 5 MG TAB PO SCH ×2 (08:21→20:22)
[2020-10-20] MEDS: ACETAMINOPHEN TAB 650MG DOSE (2X325MG) PO PRN ×2 (08:21→15:31)
[2020-10-20] MEDS: GABAPENTIN 400 MG CAP PO SCH ×3 (08:21→20:22)
[2020-10-20] MEDS: MIRALAX *UNIT DOSE* 17GM PACKET PO PRN (11:03)
[2020-10-20] MEDS: IBUPROFEN 400 MG TAB PO PRN (15:31)
[2020-10-20 16:18] VITALS: BP 121/76
[2020-10-20] MEDS ORDERED: NICOTINE 21MG/24HR 1 EA TRANSDERMAL TD PRN (17:45)
[2020-10-20] MEDS: traZODone 50 MG TAB PO PRN (20:34)
[2020-10-21 07:13] VITALS: BP 131/68
[2020-10-21] MEDS: BUPRENORPHINE/NALOXONE 8-2MG SUBLINGUAL TABLET(SUBOXONE) SL SCH ×2 (08:53→17:03)
[2020-10-21] MEDS: MOM 30ML SUSPENSION UDC PO PRN (08:53)
[2020-10-21] MEDS: buPROPion **XL** TABLET 150MG (WELLBUTRIN XL) PO SCH (08:54)
[2020-10-21] MEDS: GABAPENTIN 400 MG CAP PO SCH ×3 (08:54→20:15)
[2020-10-21] MEDS: IBUPROFEN 400 MG TAB PO PRN ×2 (08:54→19:00)
[2020-10-21] MEDS: OLANZapine 5 MG TAB PO SCH ×2 (08:54→20:15)
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
[2020-10-21] MEDS: MIRALAX *UNIT DOSE* 17GM PACKET PO PRN (13:51)
[2020-10-21] MEDS: OLANZapine ORAL DISINTEGRATING TAB 5MG PO PRN (14:41)
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
[2020-10-21 18:05] VITALS: BP 121/65
[2020-10-21] MEDS: traZODone 50 MG TAB PO PRN (20:15)
[2020-10-21] MEDS: SENOKOT S TAB PO SCH (20:15)
[2020-10-21] MEDS: ACETAMINOPHEN TAB 650MG DOSE (2X325MG) PO PRN (20:16)
[2020-10-22] MEDS: BUPRENORPHINE/NALOXONE 8-2MG SUBLINGUAL TABLET(SUBOXONE) SL SCH ×2 (05:31→17:12)
[2020-10-22 06:11] VITALS: BP 128/61
[2020-10-22] MEDS: SENOKOT S TAB PO SCH ×2 (08:20→20:30)
[2020-10-22] MEDS: GABAPENTIN 400 MG CAP PO SCH ×3 (08:20→20:30)
[2020-10-22] MEDS: OLANZapine 5 MG TAB PO SCH ×2 (08:20→20:29)
[2020-10-22] MEDS: buPROPion **XL** TABLET 150MG (WELLBUTRIN XL) PO SCH (08:21)
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
[2020-10-22] MEDS: ACETAMINOPHEN TAB 650MG DOSE (2X325MG) PO PRN ×2 (14:13→23:59)
[2020-10-22] MEDS: NEOSPORIN TOP OINT 15GM TOP SCH (15:37)
[2020-10-22 17:00] VITALS: BP 134/63
[2020-10-22] MEDS: traZODone 50 MG TAB PO PRN (20:29)
[2020-10-22] MEDS: MOM 30ML SUSPENSION UDC PO PRN (20:30)
[2020-10-22] MEDS: IBUPROFEN 400 MG TAB PO PRN (20:32)
[2020-10-22] MEDS ORDERED: MAGNESIUM SULFATE GRANULES(EPSOM SALT) 1LB TOP SCH (21:00)
[2020-10-23] MEDS: BUPRENORPHINE/NALOXONE 8-2MG SUBLINGUAL TABLET(SUBOXONE) SL SCH ×2 (06:12→17:00)
[2020-10-23 06:52] VITALS: BP 115/64
[2020-10-23] MEDS: GABAPENTIN 400 MG CAP PO SCH ×3 (08:12→19:37)
[2020-10-23] MEDS: OLANZapine 5 MG TAB PO SCH ×2 (08:12→19:37)
[2020-10-23] MEDS: buPROPion **XL** TABLET 150MG (WELLBUTRIN XL) PO SCH (08:12)
[2020-10-23] MEDS: SENOKOT S TAB PO SCH ×2 (08:12→19:37)
[2020-10-23] MEDS: IBUPROFEN 400 MG TAB PO PRN ×2 (08:14→19:59)
[2020-10-23] MEDS: NEOSPORIN TOP OINT 15GM TOP SCH (08:14)
[2020-10-23] MEDS: OLANZapine ORAL DISINTEGRATING TAB 5MG PO PRN (11:49)
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
[2020-10-23] MEDS: MOM 30ML SUSPENSION UDC PO PRN (12:26)
[2020-10-23] MEDS: MAGNESIUM SULFATE GRANULES(EPSOM SALT) 1LB TOP SCH (13:02)
--- NOTE | 2020-10-23 14:08 | MHIPNPDOC ---
[facility] Progress Note Progress Note DATE OF SERVICE: 10/23/20 HISTORY: Patient is a 34 -year-old Single, Unemployed, Undomiciled , female, who was brought to [facility] (according to the ED) via ambulance after she jumped into the ortiz. Pt was apparently in the ortiz for 20-30 minutes prior to rescue. Pt was brought to [facility] soaked, no shoes and possibly high on substances. On interview she states that she was staying at her cousin's house and that she heard a noise and was hearing things that both her cousin and brother were telling her. She stated that she heard a 4-suero and that her family was talking about her, getting upset with her and then she became paranoid that people were after her and she ran to the ortiz to get away from them. She was believing people were after her, possibly her brother and cousin "were in on it" VITAL SIGNS: See below. CURRENT MEDICATIONS: See below. MENTAL STATUS EXAMINATION: Patient is a 34 -year-old Single, Unemployed, Undomiciled , female, who was brought to [facility] after she became delusional having ingested Linda and jumped into the ortiz believing people were after her. In today's interview she is dressed in hospital scrubs, her hygiene and grooming is good. Her hair is braided. Eye contact is good and she is not observed with psychomotor agitatio n or retardation Speech: Is fluid, conversant, normal rate, tone and volume Language skills are intact Thought processes including: linear and goal oriented Thought content: mild depression and mild anxiety. Denies suicidal/homicidal ideation, planning or intent. Abstract reasoning, and computation: fair Description of associations: denies, none observed Description of abnormal or psychotic thoughts: denies, not observed with psychotic symptoms Insight: fair Orientation: alert and oriented to person, place, time and situation Recent and remote memory: fair Attention span and concentration: fair Language: expansive Fund of knowledge: average Mood:Euthymic Affect: Flat DIAGNOSES: Unspecified Psychotic Disorder Methamphetamine Use Disorder Tobacco Use Disorder ASSESSMENT: Patient is alert and oriented, calm and cooperative on the unit. She is visible on the unit and has no reports of delusional or bizarre behaviors or statements. She denies and is observed with no depressive or anxiety symptoms. She denies suicidal or homicidal ideation, planning or intent. It appears that her delusional and bizarre thinking has resolved and at this time she is requesting to go to Rehab. Patient reports that she is attending groups, states that in the past this was very difficult for her and that she is encouraged that she is able to share in things that she had never shared prior. She states that group therapy has been difficult for her prior to this admission. She states that she has a cousin who is working at a Rehab place who is trying to get her admitted. We will work with environmental restoration planner to help her with this transfer if it is plausible. MANAGEMENT PLAN: Continue medications as ordered. TIME SPENT: 25 minutes. Vital Signs Vital Signs Date Time Temp Pulse Resp B/P (MAP) Pulse Ox O2 Delivery O2 Flow Rate FiO2 10/23/20 06:52 98.7 66 18 115/64 (81) 98 Room Air Current Medications Current Medications Medications (Trade) Dose Ordered Sig/Bran Route PRN Reason Start Time Stop Time Status Last Admin Dose Admin Acetaminophen (Tylenol Tab) 650 mg Q6HP PRN PO HEADACHE or DISCOMFORT 10/17/20 15:45 10/22/20 23:59 Al Hydrox/Mg Hydrox/Simethicone (Mylanta) 30 ml Q4HP PRN PO HEARTBURN/INDIGESTION 10/17/20 15:45 Buprenorphine/ Naloxone (Suboxone 8/2mg) 1 tab QPM SL 10/18/20 21:00 10/21/20 16:58 DC 10/20/20 20:22 Buprenorphine/ Naloxone (Suboxone 8/2mg) 1 tab QPM@1700 SL 10/21/20 17:00 10/22/20 17:12 Buprenorphine/ Naloxone (Suboxone 8/2mg) 2 tab DAILY SL 10/19/20 09:00 10/21/20 17:01 DC 10/21/20 08:53 Buprenorphine/ Naloxone (Suboxone 8/2mg) 2 tab QAM SL 10/17/20 09:00 10/18/20 14:21 DC 10/18/20 08:52 Buprenorphine/ Naloxone (Suboxone 8/2mg) 2 tab QAM@0600 SL 10/22/20 06:00 10/23/20 06:12 Bupropion HCl (Wellbutrin Xl) 150 mg QAM PO 10/18/20 09:00 Cancel Bupropion HCl (Wellbutrin Xl) 450 mg DAILY PO 10/19/20 09:00 10/23/20 08:12 Bupropion HCl (Wellbutrin Xl) 450 mg QAM PO 10/17/20 09:00 10/18/20 14:21 DC 10/18/20 08:34 Gabapentin (Neurontin) 400 mg TID PO 10/17/20 09:00 10/18/20 14:21 DC 10/18/20 08:33 Gabapentin (Neurontin) 400 mg TID PO 10/18/20 16:00 10/23/20 08:12 Home Med (Med Rec Complete!) ASDIRECTED XX 10/17/20 08:45 10/17/20 08:50 DC Ibuprofen (Advil) 400 mg Q8HP PRN PO PAIN LEVEL 4-7 10/18/20 15:00 10/23/20 08:14 Lorazepam (Ativan) 2 mg STAT STAT IV 10/16/20 07:21 10/16/20 07:24 DC 10/16/20 07:57 Magnesium Hydroxide (Milk Of Magnesia) 30 ml DAILYPRN PRN PO CONSTIPATION 10/17/20 15:45 10/23/20 12:26 Magnesium Sulfate (Epsom Salt) epsom salt soak with luke w... DAILY TOP 10/23/20 09:00 10/23/20 13:02 Magnesium Sulfate (Epsom Salt) epsom salt soak with luke w... QHS TOP 10/22/20 21:00 10/23/20 12:34 DC Neomycin/ Polymyxin/ Bacitracin (Neosporin) apply to affected toes daily DAILY TOP 10/22/20 14:00 10/23/20 08:14 Nicotine (Nicoderm Cq 21mg) 1 patch DAILYPRN PRN TD NICOTINE WITHDRAWAL 10/20/20 17:45 Olanzapine (ZyPREXA ZYDIS) 5 mg Q6HP PRN PO ANXIETY/AGITATION 10/21/20 14:15 10/23/20 11:49 Olanzapine (ZyPREXA) 5 mg BID PO 10/18/20 21:00 10/23/20 08:12 Polyethylene Glycol (Miralax) 1 pkt BID PRN PO CONSTIPATION 10/20/20 10:00 10/21/20 13:51 Senna/Docusate Sodium (Senokot S) 1 tab BID PO 10/21/20 21:00 10/23/20 08:12 Trazodone HCl (Desyrel) 50 mg QHSP PRN PO INSOMNIA 10/17/20 15:45 10/22/20 20:29 Allergies Coded Allergies: No Known Allergies (Verified , 10/15/20) ADRIAN GARZA NP Oct 23, 2020 13:57
[2020-10-23] MEDS: ACETAMINOPHEN TAB 650MG DOSE (2X325MG) PO PRN ×2 (16:59→22:49)
[2020-10-23 17:48] VITALS: BP 127/81
[2020-10-23 18:01] VITALS: BP 105/53
[2020-10-24] MEDS: BUPRENORPHINE/NALOXONE 8-2MG SUBLINGUAL TABLET(SUBOXONE) SL SCH ×2 (05:56→17:53)
[2020-10-24] MEDS: IBUPROFEN 400 MG TAB PO PRN ×2 (05:58→20:23)
[2020-10-24 06:00] VITALS: BP 109/58
[2020-10-24] MEDS: SENOKOT S TAB PO SCH ×2 (09:02→20:23)
[2020-10-24] MEDS: buPROPion **XL** TABLET 150MG (WELLBUTRIN XL) PO SCH (09:02)
[2020-10-24] MEDS: OLANZapine 5 MG TAB PO SCH ×2 (09:03→20:22)
[2020-10-24] MEDS: ACETAMINOPHEN TAB 650MG DOSE (2X325MG) PO PRN (09:03)
[2020-10-24] MEDS: GABAPENTIN 400 MG CAP PO SCH ×3 (09:34→20:22)
[2020-10-24] MEDS: MAGNESIUM SULFATE GRANULES(EPSOM SALT) 1LB TOP SCH (09:35)
[2020-10-24] MEDS: NEOSPORIN TOP OINT 15GM TOP SCH (09:35)
[2020-10-24] MEDS: MOM 30ML SUSPENSION UDC PO PRN (10:59)
[2020-10-24] MEDS: OLANZapine ORAL DISINTEGRATING TAB 5MG PO PRN (12:28)
--- NOTE | 2020-10-24 12:42 | MHIPNPDOC ---
[facility] Progress Note Progress Note DATE OF SERVICE: 10/24/20 HISTORY: Patient is a 34 -year-old Single, Unemployed, Undomiciled , female, who was brought to [facility] after she jumped into the ortiz believing that people were after her. On interview she states that she was staying at her cousin's house and that she heard a noise and was hearing things that both her cousin and brother were telling her. She stated that she heard a 4-suero and that her family was talking about her, getting upset with her and then she became paranoid that people were after her and she ran to the ortiz to get away from them. She was believing people were after her, possibly her brother and cousin "were in on it" VITAL SIGNS: See below. CURRENT MEDICATIONS: See below. MENTAL STATUS EXAMINATION: Patient is a 34 -year-old Single, Unemployed, Undomiciled , female, who was brought to [facility] after she became delusional having ingested Linda and jumped into the oritz believing people were after her. In today's interview she is dressed in hospital scrubs, her hygiene and grooming is good. Eye contact is good and she is not observed with psychomotor agitation or retardation Speech: Is fluid, conversant, normal rate, tone and volume Language skills are intact Thought processes including: linear and goal oriented Thought content: reporting decreased depression and decreased anxiety. Denies suicidal/homicidal ideation, planning or intent. Abstract reasoning, and computation: fair Description of associations: denies, none observed Description of abnormal or psychotic thoughts: denies, not observed with psychotic symptoms Insight: good Judgment: good Orientation: alert and oriented to person, place, time and situation Recent and remote memory: fair Attention span and concentration: fair Language: expansive Fund of knowledge: average Mood: Euthymic Affect: Reactive DIAGNOSES: Unspecified Psychotic Disorder Methamphetamine Use Disorder Tobacco Use Disorder ASSESSMENT: Patient is alert and oriented, calm and cooperative on the unit. She is visible on the unit and has no reports of delusional or bizarre behaviors or statements. She denies and is observed with minimal depressive and anxiety symptoms. She denies suicidal or homicidal ideation, planning or intent. She is not observed with continued delusions, denies any paranoia. In today's session, she reports that she is ready for discharge and would like to go to her Cousin's Home to await bed availability at the Rehab. She states that she has a cousin who is working at a Rehab place who is trying to get her admitted. We will work with land planner to help her with this transfer if it is plausible. At this time, [employer] have received information that 1) Cousin cannot come to get patient today. 2) Probation/[place]iller is looking into patient's housing to determine its appropriateness 3) Probation/Diller has to approve the patient leaving the area and prefers that patient go door to door for Rehab. At this time, patient does meet criteria for discharge but due to extenuating circumstances with both safe housing and safe discharge planning she will not be leaving today. She denies suicidality/homicidality or any abnormal psychiatric symptoms. MANAGEMENT PLAN: Continue medications as ordered. TIME: 25 minutes Vital Signs Vital Signs Date Time Temp Pulse Resp B/P (MAP) Pulse Ox O2 Delivery O2 Flow Rate FiO2 10/24/20 06:00 98.5 88 16 109/58 (75) 98 10/23/20 06:52 Room Air Current Medications Current Medications Medications (Trade) Dose Ordered Sig/Bran Route PRN Reason Start Time Stop Time Status Last Admin Dose Admin Acetaminophen (Tylenol Tab) 650 mg Q6HP PRN PO HEADACHE or DISCOMFORT 10/17/20 15:45 10/24/20 09:03 Al Hydrox/Mg Hydrox/Simethicone (Mylanta) 30 ml Q4HP PRN PO HEARTBURN/INDIGESTION 10/17/20 15:45 Buprenorphine/ Naloxone (Suboxone 8/2mg) 1 tab QPM SL 10/18/20 21:00 10/21/20 16:58 DC 10/20/20 20:22 Buprenorphine/ Naloxone (Suboxone 8/2mg) 1 tab QPM@1700 SL 10/21/20 17:00 10/23/20 17:00 Buprenorphine/ Naloxone (Suboxone 8/2mg) 2 tab DAILY SL 10/19/20 09:00 10/21/20 17:01 DC 10/21/20 08:53 Buprenorphine/ Naloxone (Suboxone 8/2mg) 2 tab QAM SL 10/17/20 09:00 10/18/20 14:21 DC 10/18/20 08:52 Buprenorphine/ Naloxone (Suboxone 8/2mg) 2 tab QAM@0600 SL 10/22/20 06:00 10/24/20 05:56 Bupropion HCl (Wellbutrin Xl) 150 mg QAM PO 10/18/20 09:00 Cancel Bupropion HCl (Wellbutrin Xl) 450 mg DAILY PO 10/19/20 09:00 10/24/20 09:02 Bupropion HCl (Wellbutrin Xl) 450 mg QAM PO 10/17/20 09:00 10/18/20 14:21 DC 10/18/20 08:34 Gabapentin (Neurontin) 400 mg TID PO 10/17/20 09:00 10/18/20 14:21 DC 10/18/20 08:33 Gabapentin (Neurontin) 400 mg TID PO 10/18/20 16:00 10/24/20 09:34 Home Med (Med Rec Complete!) ASDIRECTED XX 10/17/20 08:45 10/17/20 08:50 DC Ibuprofen (Advil) 400 mg Q8HP PRN PO PAIN LEVEL 4-7 10/18/20 15:00 10/24/20 05:58 Lorazepam (Ativan) 2 mg STAT STAT IV 10/16/20 07:21 10/16/20 07:24 DC 10/16/20 07:57 Magnesium Hydroxide (Milk Of Magnesia) 30 ml DAILYPRN PRN PO CONSTIPATION 10/17/20 15:45 10/24/20 10:59 Magnesium Sulfate (Epsom Salt) epsom salt soak with luke w... DAILY TOP 10/23/20 09:00 10/24/20 09:35 Magnesium Sulfate (Epsom Salt) epsom salt soak with luke w... QHS TOP 10/22/20 21:00 10/23/20 12:34 DC Neomycin/ Polymyxin/ Bacitracin (Neosporin) apply to affected toes daily DAILY TOP 10/22/20 14:00 10/24/20 09:35 Nicotine (Nicoderm Cq 21mg) 1 patch DAILYPRN PRN TD NICOTINE WITHDRAWAL 10/20/20 17:45 Olanzapine (ZyPREXA ZYDIS) 5 mg Q6HP PRN PO ANXIETY/AGITATION 10/21/20 14:15 10/24/20 12:28 Olanzapine (ZyPREXA) 5 mg BID PO 10/18/20 21:00 10/24/20 09:03 Polyethylene Glycol (Miralax) 1 pkt BID PRN PO CONSTIPATION 10/20/20 10:00 10/21/20 13:51 Senna/Docusate Sodium (Senokot S) 1 tab BID PO 10/21/20 21:00 10/24/20 09:02 Trazodone HCl (Desyrel) 50 mg QHSP PRN PO INSOMNIA 10/17/20 15:45 10/22/20 20:29 Allergies Coded Allergies: No Known Allergies (Verified , 10/15/20) ADRIAN GARZA NP Oct 24, 2020 12:42
[2020-10-24 18:00] VITALS: BP 120/92
[2020-10-24] MEDS: MIRALAX *UNIT DOSE* 17GM PACKET PO PRN (20:22)
[2020-10-25] MEDS: ACETAMINOPHEN TAB 650MG DOSE (2X325MG) PO PRN ×2 (00:18→06:58)
[2020-10-25] MEDS: BUPRENORPHINE/NALOXONE 8-2MG SUBLINGUAL TABLET(SUBOXONE) SL SCH (05:47)
[2020-10-25 06:16] VITALS: BP 125/60
[2020-10-25] MEDS: OLANZapine ORAL DISINTEGRATING TAB 5MG PO PRN ×2 (06:59→12:48)
[2020-10-25] MEDS: SENOKOT S TAB PO SCH (08:16)
[2020-10-25] MEDS: OLANZapine 5 MG TAB PO SCH (08:16)
[2020-10-25] MEDS: GABAPENTIN 400 MG CAP PO SCH (08:16)
[2020-10-25] MEDS: buPROPion **XL** TABLET 150MG (WELLBUTRIN XL) PO SCH (08:16)
[2020-10-25] MEDS: NEOSPORIN TOP OINT 15GM TOP SCH (08:45)
[2020-10-25] MEDS: MAGNESIUM SULFATE GRANULES(EPSOM SALT) 1LB TOP SCH (08:45)
[2020-10-25] MEDS ORDERED: GABA-845 PO (11:07)
[2020-10-25] MEDS ORDERED: BUPR450T PO (11:07)
[2020-10-25] MEDS ORDERED: CVS1GRA TOP (11:08)
[2020-10-25] MEDS ORDERED: TRIPOIN5 TOP (11:08)
--- NOTE | 2020-10-25 11:35 | MHDSPDOC ---
[facility] Discharge Summary Discharge Summary DATE OF ADMISSION: Oct 17, 2020 at 15:41 DATE OF DISCHARGE: October 25, 2020 at 1124 DISCHARGE DIAGNOSES: Unspecified Psychotic Disorder Methamphetamine Use Disorder Tobacco Use Disorder REASON FOR ADMISSION: Patient is a 34 -year-old Single, Unemployed, Undomiciled , female, who was brought to [facility] after she jumped into the ortiz believing that people were after her. On interview she states that she was staying at her cousin's house and that she heard a noise and was hearing things that both her cousin and brother were telling her. She stated that she heard a 4-suero and that her family was talking about her, getting upset with her and then she became paranoid that people were after her and she ran to the ortiz to get away from them. She was believing people were after her, possibly her brother and cousin "were in on it" CONSULTANTS INVOLVED: See Medical H + P and Podiatry consultations. TREATMENT AND PROGRESS ON THE UNIT : Patient was offered the following treatment modalities 1)individual therapy, 2)group therapy 3)mediation therapy, and 4) milieu therapy. HOSPITAL COURSE: Patient was admitted to [facility] on a 9.39 legal status and was started on anti-psychotic medications to help mitigate the psychosis brought on by her admitted methamphetamine use. Patient was calm and cooperative on the unit, denying suicidal, homicidal, depression or other abnormal psychiatric symptoms. She was initially moderately delusional about why she needed to jump into the ortiz, this delusional thinking resolved itself and at this time, she will no longer be prescribed any anti-psychotic medications other than her continued home medications of Wellbutrin and Gabapentin DISCHARGE ASSESSMENT: In the interview, patient is alert and oriented. Her dress is appropriate, hygiene and grooming is well-kempt. She makes good eye contact. Today she denies depression and suicidal/homicidal. delusional, bizarre thinking, denies paranoia or AH/VH/TH. She is not observed with henry, flight of ideas or obsessions. At this time, she has a normal mentation. She is being discharge to her home, her cousin will be picking her up. This cousin has arranged for her to be admitted to a rehab where she works. Patient's home was evaluated by parole and has been deemed to be appropriate for her to live. At this time, the treatment team feels that patient has met criteria for discharge today. States that she is mildly anxious to be leaving reporting that she has in the past never advocated for herself stated, "I am grateful." MENTAL STATUS EXAMINATION ON DISCHARGE: Patient is a 34 -year-old Single, Unemployed, Undomiciled , female, who was brought to [facility] after she became delusional having ingested Linda and jumped into the ortiz believing people were after her. In today's interview she is dressed in hospital scrubs, her hygiene and grooming is good. Eye contact is good and she is not observed with psychomotor agitation or retardation Speech: Is fluid, conversant, normal rate, tone and volume Language skills are intact Thought processes including: linear and goal oriented Thought content: reporting decreased depression and decreased anxiety. Denies suicidal/homicidal ideation, planning or intent. Abstract reasoning, and computation: fair Description of associations: denies, none observed Description of abnormal or psychotic thoughts: denies, not observed with psychotic symptoms Insight: good Judgment: good Orientation: alert and oriented to person, place, time and situation Recent and remote memory: fair Attention span and concentration: fair Language: expansive Fund of knowledge: average Mood: Euthymic Affect: Reactive MEDICATIONS ON DISCHARGE: See Medication Reconciliation PLAN/FOLLOWUP ARRANGEMENTS: Patient to follow up with The amount of time spent in the coordination of care for this patient was approximately 35 minutes. Vital Signs/I&Os Vital Signs Date Time Temp Pulse Resp B/P (MAP) Pulse Ox O2 Delivery O2 Flow Rate FiO2 10/25/20 06:16 99.0 85 16 125/60 (81) 99 10/23/20 06:52 Room Air Medications Scheduled Buprenorphine HCl/Naloxone HCl (Suboxone 8 mg-2 mg Sl Film) 1 Mis Mis, 2 STRIP SL DAILY, (Reported) TOTAL OF THREE STRIPS DAILY Buprenorphine HCl/Naloxone HCl (Suboxone 8 mg-2 mg Sl Film) 1 Mis Mis, 1 STRIP SL QHS, (Reported) TOTAL OF THREE STRIPS DAILY Bupropion HCl (Bupropion Xl) 450 Mg Tab.er.24h, 450 MG PO DAILY for Depression, #7 Gabapentin (Gabapentin) 400 Mg Capsule, 400 MG PO TID for Anxiety, #21 Magnesium Sulfate (Epsom Salt) 1,920 Gm Granules, 0 DOSE TOP DAILY for Foot Care, #1 Neomycin/Bacitracin/Polymyxinb (Triple Antibiotic Ointment) 28 Gm Oint...g., 0 DOSE TOP DAILY for Foot Care, #1 Scheduled PRN Aspirin/Acetaminophen/Caffeine (Excedrin Migraine Caplet) 1 Each Tablet, 1 TAB PO Q8H PRN for HEADACHE, (Reported) Allergies Coded Allergies: No Known Allergies (Verified , 10/15/20) ADRIAN GARZA NP Oct 25, 2020 11:25
[2020-10-25] MEDS: IBUPROFEN 400 MG TAB PO PRN (12:48)
== END 2020-10-25 14:45 | disposition home or self-care (01) | DRG 751 ==
LOC: EDBD 07:16 → M ED 07:16 → M ED INP 10-17 15:41 → M PSY 10-17 16:55
PROVIDERS: ADMIT Pediatrics; ATTEND Psychiatry & Neurology Psychiatry
DX: F29 Unspecified psychosis not due to a substance or known physiological condition (principal); T33.821A Superficial frostbite of right foot, initial encounter; F17.200 Nicotine dependence, unspecified, uncomplicated; F15.90 Other stimulant use, unspecified, uncomplicated; Z79.899 Other long term (current) drug therapy; E03.9 Hypothyroidism, unspecified; T33.822A Superficial frostbite of left foot, initial encounter; W16.92XA Jumping or diving into unspecified water causing other injury, initial encounter; Y92.009 Unspecified place in unspecified non-institutional (private) residence as the place of occurrence of the external cause

== ENCOUNTER 2021-01-25 01:24 | Emergency (ER) | payer MEDICAID, OTHER, SELFPAY ==
[~2021-01-25] VITALS: Ht 160 cm; Wt 70.1 kg
[~2021-01-25 01:24] MED LIST changes: +CVS1GRA TOP; +EXCETAB33 PO; +TRIPOIN5 TOP
[2021-01-25] MEDS ORDERED: ADDE20CA3 PO (01:36)
[2021-01-25] MEDS ORDERED: CHAN1PAK11 PO (01:36)
[2021-01-25 06:06] VITALS: BP 132/82
[2021-01-25 09:48] LABS: AMPHETAMINES LEVEL URINE NEGATIVE (NEGATIVE); BARBITURATES URINE NEGATIVE (NEGATIVE); BENZODIAZEPINES URINE NEGATIVE (NEGATIVE); CANNABINOIDS URINE NEGATIVE (NEGATIVE); COCAINE METABOLITE URINE NEGATIVE (NEGATIVE); METHADONE URINE NEGATIVE (NEGATIVE); OPIATES URINE NEGATIVE (NEGATIVE); PHENCYCLIDINE URINE NEGATIVE (NEGATIVE)
[2021-01-25 10:34] LABS: HEMATOCRIT 39.5 % (36.0-47.0); HEMOGLOBIN 13.4 g/dl (12.0-15.5); MEAN CORPUSCULAR HEMOGLOBIN 27.5 pg (27.0-33.0); MEAN CORPUSCULAR HGB CONC 33.9 g/dl (32.0-36.5); MEAN CORPUSCULAR VOLUME 81.1 fl (80.0-96.0); RED BLOOD COUNT 4.87 10^6/uL (4.00-5.40); WHITE BLOOD COUNT 3.5 10^3/uL (4.0-10.0)
[2021-01-25 10:58] LABS: HCG, SERUM QUALITATIVE NEGATIVE (NEGATIVE)
[2021-01-25 11:00] LABS: PLATELET COUNT, AUTOMATED 90 10^3/uL (150-450)
[2021-01-25 11:07] LABS: ACETAMINOPHEN LEVEL < 2.0 UG/ML (10.0-30.0); ALBUMIN 4.4 GM/DL (3.2-5.2); ALT/SGPT 88 U/L (12-78); BILIRUBIN,DIRECT 0.2 MG/DL (0.0-0.2); BILIRUBIN,TOTAL 0.6 MG/DL (0.2-1.0); BLOOD UREA NITROGEN 13 MG/DL (7-18); CALCIUM LEVEL 9.4 MG/DL (8.5-10.1); CARBON DIOXIDE LEVEL 28 MEQ/L (21-32); CHLORIDE LEVEL 105 MEQ/L (98-107); CREATININE FOR GFR 0.68 MG/DL (0.55-1.30); ETHYL ALCOHOL (ETHANOL) < 0.003 % (0.000-0.010); GLOMERULAR FILTRATION RATE > 60.0 (>60); GLUCOSE, FASTING 90 MG/DL (70-100); POTASSIUM SERUM 4.1 MEQ/L (3.5-5.1); SALICYLATE LEVEL 4.7 MG/DL (5.0-30.0); SODIUM LEVEL 139 MEQ/L (136-145); TOTAL PROTEIN 7.5 GM/DL (6.4-8.2)
[2021-01-25] MEDS ORDERED: BUPR1FIL SL (16:18)
[2021-01-25] MEDS ORDERED: GABA-845 PO (16:18)
[2021-01-25] MEDS ORDERED: BUPR450T PO (16:18)
== END 2021-01-25 11:47 | disposition left against medical advice (07) ==
LOC: M ED 01:24
DX: F16.10 Hallucinogen abuse, uncomplicated (principal); Z53.20 Procedure and treatment not carried out because of patient's decision for unspecified reasons; E03.9 Hypothyroidism, unspecified; Z79.84 Long term (current) use of oral hypoglycemic drugs; Z79.899 Other long term (current) drug therapy; Z98.84 Bariatric surgery status

== ENCOUNTER 2021-01-25 12:37 | Inpatient (IN) | payer MEDICAID, OTHER ==
[~2021-01-25] VITALS: Ht 160 cm; Wt 70.0 kg
[~2021-01-25 12:37] MED LIST changes: +ADDE20CA3 PO; +CHAN1PAK11 PO
[2021-01-25] MEDS ORDERED: BUPR1FIL SL (16:18)
[2021-01-25] MEDS ORDERED: BUPR450T PO (16:18)
[2021-01-25] MEDS ORDERED: GABA-845 PO (16:18)
[2021-01-25] MEDS ORDERED: ACETAMINOPHEN TAB 650MG DOSE (2X325MG) PO PRN (17:50)
[2021-01-25] MEDS ORDERED: MAALOX 30 ML SUSP *UDC PO PRN (17:50)
[2021-01-25] MEDS: NICOTINE 21MG/24HR 1 EA TRANSDERMAL TD SCH (18:27)
[2021-01-25] MEDS: GABAPENTIN 400MG CAP PO SCH (20:34)
[2021-01-25] MEDS: OLANZapine 5 MG TAB PO PRN (21:38)
[2021-01-26 06:00] VITALS: BP 102/55
[2021-01-26] MEDS: buPROPion **XL** TABLET 150MG (WELLBUTRIN XL) PO SCH (08:56)
[2021-01-26] MEDS: NICOTINE 21MG/24HR 1 EA TRANSDERMAL TD SCH (08:56)
[2021-01-26] MEDS: GABAPENTIN 400MG CAP PO SCH ×5 (08:56→20:14)
[2021-01-26] MEDS ORDERED: BUPRENORPHINE/NALOXONE 8-2MG SUBLINGUAL TABLET(SUBOXONE) SL ONE (11:00)
--- NOTE | 2021-01-26 12:46 | HPEPDOC ---
[facility] Medical History & Physical Date of Admission Jan 25, 2021 Date of Service: Jan 26, 2021 Attending Physician: FRANCISCO JAVIER TAMEZ MD History and Physical CHIEF COMPLAINT: Suicidal ideation HISTORY OF PRESENT ILLNESS: 35-year-old W with a history of PSUD and prior [facility] admission for psychosis who presented to the ED reporting suicidal ideation and depression reporting a recent use of Linda. She has a prior history of gastric bypass. She denies any shortness of breath, chest pain, nausea, vomiting, fever, chills, diarrhea or constipation. While in the ED, workup was notable for +coronavirus 229E (NOT COVID), and otherwise had CBC, BMP and tox screen that weren wnl. She was admitted to the [facility] for depression with suicidal ideation. Her symptoms were reportedly depressed mood, passive thoughts of and reports having taken some Linda with some intention to harm herself. 10 point review of systems negative except for above PAST MEDICAL HISTORY: 1. Hypothyroidism. PAST SURGICAL HISTORY: 1. Gastric bypass. 2. , Cholecystectomy. SOCIAL HISTORY: Denies smoking. Denies alcohol use. Reports using Linda FAMILY HISTORY: Positive for malignancy in both parents ALLERGIES: Please see below. HOME MEDICATIONS: Please see below. PHYSICAL EXAMINATION: GENERAL APPEARANCE: NAD HEENT: NCAT, EOMI, MMM CARDIOVASCULAR: RRR, no m/r/g LUNGS: CTAB ABDOMEN: Soft, normoactive sounds, NTND EXTREMITIES: No edema, WWP NEUROLOGICAL: No focal deficits, normal gait, CN2-12 intact, speech clear Psych: flat affect, AOx3 LABORATORY DATA: See below. MICROBIOLOGY: Please see below. ASSESSMENT: 35-year-old W who is admitted to inpatient mental health unit for depression with suicidal ideation. PLAN: Depression with suicidal ideation and PSUD: -Plan per primary psych team Hospitalist service will sign off, please reconsult if needed. Vital Signs Vital Signs Date Time Temp Pulse Resp B/P (MAP) Pulse Ox O2 Delivery O2 Flow Rate FiO2 01/26/21 06:00 99.0 65 16 102/55 (71) 97 01/25/21 17:11 Room Air Laboratory Data Microbiology Microbiology 01/25/21 Respiratory Virus Panel (PCR) ([facility]) - Final, Complete Coronavirus 229E Home Medications Scheduled Buprenorphine HCl/Naloxone HCl (Suboxone 8 mg-2 mg Sl Film) 1 Mis Mis, 2 STRIP SL DAILY Buprenorphine HCl/Naloxone HCl (Buprenorphine-Nalox 8-2Mg Film) 8 Mg-2 Mg Film, 1 FILM SL QHS Bupropion HCl (Bupropion Xl) 450 Mg Tab.er.24h, 450 MG PO DAILY Dextroamphetamine/Amphetamine (Adderall Xr 20 mg Capsule) 20 Mg Cap.er.24h, 20 MG PO QAM Gabapentin (Gabapentin) 400 Mg Capsule, 400 MG PO TID Varenicline Tartrate (Chantix) 1 Each Tab.ds.pk, 1 TAB PO ASDIRECTED Scheduled PRN Aspirin/Acetaminophen/Caffeine (Excedrin Migraine Caplet) 1 Each Tablet, 1 TAB PO Q8H PRN for HEADACHE Allergies Coded Allergies: No Known Allergies (Verified , 10/15/20) A-FIB/CHADSVASC A-FIB History Current/History of A-Fib/PAF?: No Current PO Anticoag Therapy: No Age/Risk Factor Scoring CHADSVASC: CHADSVASC Response (Comments) Value Age Risk Factor Age < 65 years old 0 Gender Risk Factor Female 1 Hx of CHF No 0 Hx of HTN No 0 Hx of Stroke/TIA/or VTE No 0 Hx of Diabetes No 0 Hx of Vascular Disease No 0 Total 1 Treatment Treatment ordered: NONE Reason Anticoagulant not given: Not indicated/[id number] FRANCISCO JAVIER TAMEZ MD Jan 26, 2021 12:07
[2021-01-26] MEDS: OLANZapine 5 MG TAB PO PRN (13:38)
[2021-01-26] MEDS: BUPRENORPHINE/NALOXONE 8-2MG SUBLINGUAL TABLET(SUBOXONE) SL SCH (16:25)
[2021-01-26] MEDS: BACITRACIN OINTMENT 30GM TUBE TOP SCH (16:25)
[2021-01-26 17:11] VITALS: BP 119/69
[2021-01-26] MEDS: SENOKOT S TAB PO SCH (20:13)
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
[2021-01-27 06:32] VITALS: BP 120/66
[2021-01-27 08:11] LABS: CHOLESTEROL RISK RATIO 3.428 (<5)
[2021-01-27] MEDS: BUPRENORPHINE/NALOXONE 8-2MG SUBLINGUAL TABLET(SUBOXONE) SL SCH ×2 (08:18→15:03)
[2021-01-27] MEDS: SENOKOT S TAB PO SCH ×2 (08:18→21:13)
[2021-01-27] MEDS: GABAPENTIN 400MG CAP PO SCH ×3 (08:18→21:13)
[2021-01-27] MEDS: buPROPion **XL** TABLET 150MG (WELLBUTRIN XL) PO SCH (08:18)
[2021-01-27] MEDS: NICOTINE 21MG/24HR 1 EA TRANSDERMAL TD SCH (08:18)
[2021-01-27] MEDS: BACITRACIN OINTMENT 30GM TUBE TOP SCH (08:22)
[2021-01-27] MEDS: OLANZapine 5 MG TAB PO PRN ×2 (09:38→17:04)
--- NOTE | 2021-01-27 13:26 | MHIPN ---
[facility] PROGRESS NOTE DATE: 01/27/2021 CHIEF COMPLAINT: "I probably have bipolar disorders. I have mood swings." SUBJECTIVE: She is a 35-year-old female admitted because of auditory hallucinations. Patient has a history of using methamphetamines. She probably had polysubstance use disorder. She is currently on Suboxone for opioid dependence. She also has drug seeking behavior. She reports when she is hyper, she feels as though she is on top of the world, she has racing thoughts, she is impulsive, goes into drugs, and when she is depressed, she feels hopeless, helpless and has suicidal thoughts. Currently, patient is improving, so her hallucinations have become less. Patient is less depressed, reports her sleep and appetite are better. MENTAL STATUS EXAMINATION: Casually dressed with good personal hygiene. Grooming is good. Psychomotor activity is mildly increased. Made poor eye contact. Speech: Rate, rhythm, volume are good. Thought process: Linear, goal-directed. Thought content: Denied any suicidal or homicidal ideas. Memory: Immediate, remote, recent are good. Mood is mildly depressed. Affect is labile. Insight and judgment are limited. DIAGNOSES: 1. Psychotic disorder, not otherwise specified. 2. Rule out bipolar 2 disorder. 3. Substance-induced mood disorder. 4. Amphetamine use disorder. 5. Opioid use disorder. VITAL SIGNS: Temperature 98.6, respiratory rate 16, pulse 109, blood pressure 120/66, pulse oximetry 96. LABORATORY STUDIES: Chemistry: Triglycerides 83. ASSESSMENT AND PLAN: Patient has long history of drug dependence. She has drug-seeking behavior as well. She reported that she has mood swings and she wanted me to place her on Latuda because she is afraid of weight gain. I will titrate the dose and follow her up. ESTIMATED LENGTH OF STAY: 4-5 days. TIME SPENT: 30 minutes.
[2021-01-27] MEDS: MOM 30ML SUSPENSION UDC PO PRN (17:04)
[2021-01-27] MEDS ORDERED: LURASIDONE 20 MG TAB (LATUDA) PO SCH (18:00)
[2021-01-27 18:11] VITALS: BP 114/79
[2021-01-27] MEDS: traZODone 50 MG TAB PO PRN (21:12)
[2021-01-28 06:00] VITALS: BP 139/69
[2021-01-28] MEDS: SENOKOT S TAB PO SCH ×2 (08:44→20:19)
[2021-01-28] MEDS: GABAPENTIN 400MG CAP PO SCH ×3 (08:45→20:19)
[2021-01-28] MEDS: buPROPion **XL** TABLET 150MG (WELLBUTRIN XL) PO SCH (08:45)
[2021-01-28] MEDS: BACITRACIN OINTMENT 30GM TUBE TOP SCH (08:47)
[2021-01-28] MEDS: NICOTINE 21MG/24HR 1 EA TRANSDERMAL TD SCH (08:47)
[2021-01-28] MEDS: BUPRENORPHINE/NALOXONE 8-2MG SUBLINGUAL TABLET(SUBOXONE) SL SCH ×2 (09:17→16:09)
--- NOTE | 2021-01-28 15:25 | MHIPNPDOC ---
[facility] Progress Note Progress Note DATE OF SERVICE: 01/28/21 CHIEF COMPLAINT: "I some times hear voices I need PRN zydis" SUBJECTIVE: She is a 35-year-old female admitted because of auditory hallucinations. Patient has a history of using methamphetamines. She probably had polysubstance use disorder. She is currently on Suboxone for opioid dependence. She also has drug seeking behavior. She reports when she is hyper, she feels as though she is on top of the world, she has racing thoughts, she is impulsive, goes into drugs, and when she is depressed, she feels hopeless, helpless and has suicidal thoughts. Currently, patient is improving, so her hallucinations have become less. Patient is less depressed, reports her sleep and appetite are better. Pt hears voices sporadically.Which does not bother her. MENTAL STATUS EXAMINATION: Casually dressed with good personal hygiene. Grooming is good. Psychomotor activity is mildly increased. Made poor eye contact. Speech: Rate, rhythm, volume are good. Thought process: Linear, goal-directed. Thought content: Denied any suicidal or homicidal ideas. Memory: Immediate, remote, recent are good. Mood is mildly depressed. Affect is labile. Insight and judgment are limited. DIAGNOSES: 1. Psychotic disorder, not otherwise specified. 2. Rule out bipolar 2 disorder. 3. Substance-induced mood disorder. 4. Amphetamine use disorder. 5. Opioid use disorder. VITAL SIGNS: Temperature 98.6, respiratory rate 16, pulse 109, blood pressure 120/66, pulse oximetry 96. LABORATORY STUDIES: Chemistry: Triglycerides 83. ASSESSMENT AND PLAN: Patient has long history of drug dependence. She has drug-seeking behavior as well. She reported that she has mood swings and she wanted me to place her on Latuda because she is afraid of weight gain. I will titrate the dose and follow her up. Substitute Zyprexa with Zydis. and increase Latuda 40 mg HS. ESTIMATED LENGTH OF STAY: 4-5 days. TIME SPENT: 30 minutes. Vital Signs Vital Signs Date Time Temp Pulse Resp B/P (MAP) Pulse Ox O2 Delivery O2 Flow Rate FiO2 01/28/21 06:00 97.8 66 16 139/69 (92) 98 01/27/21 06:32 Room Air Current Medications Current Medications Medications (Trade) Dose Ordered Sig/Bran Route PRN Reason Start Time Stop Time Status Last Admin Dose Admin Acetaminophen (Tylenol Tab) 650 mg Q6HP PRN PO PAIN / FEVER 01/25/21 17:50 Al Hydrox/Mg Hydrox/Simethicone (Mylanta) 30 ml Q4HP PRN PO INDIGESTION 01/25/21 17:50 Bacitracin (Bacitracin Oint) 1 dose DAILY TOP 01/26/21 09:00 01/26/21 16:25 Buprenorphine/ Naloxone (Suboxone 8/2mg) 1 tab DAILY@1600 SL 01/26/21 16:00 01/27/21 15:03 Buprenorphine/ Naloxone (Suboxone 8/2mg) 2 tab DAILY SL 01/27/21 09:00 01/28/21 09:17 Bupropion HCl (Wellbutrin Xl) 450 mg DAILY PO 01/26/21 09:00 01/28/21 08:45 Gabapentin (Neurontin) 400 mg TID PO 01/25/21 21:00 01/28/21 08:45 Home Med (Med Rec Complete!) ASDIRECTED XX 01/25/21 16:20 01/25/21 16:39 DC Lurasidone HCl (Latuda) 20 mg DAILY@18 PO 01/27/21 18:00 01/28/21 15:12 DC 01/27/21 18:11 Lurasidone HCl (Latuda) 40 mg DAILY@18 PO 01/28/21 18:00 Magnesium Hydroxide (Milk Of Magnesia) 30 ml DAILYPRN PRN PO CONSTIPATION 01/25/21 17:50 01/27/21 17:04 Nicotine (Nicoderm Cq 21mg) 1 patch DAILY TD 01/25/21 09:00 01/28/21 08:47 Olanzapine (ZyPREXA) 5 mg TIDP PRN PO AGITATION 01/25/21 14:50 01/28/21 15:12 DC 01/27/21 17:04 Senna/Docusate Sodium (Senokot S) 1 tab BID PO 01/26/21 21:00 01/28/21 08:44 Trazodone HCl (Desyrel) 50 mg QHSP PRN PO INSOMNIA 01/25/21 21:55 01/27/21 21:12 Allergies Coded Allergies: No Known Allergies (Verified , 10/15/20) JANET DILL MD Jan 28, 2021 15:25
[2021-01-28] MEDS: LURASIDONE HCL 40 MG TAB (LATUDA) PO SCH (17:15)
[2021-01-28 18:00] VITALS: BP 109/69
[2021-01-28] MEDS: MOM 30ML SUSPENSION UDC PO PRN (18:43)
[2021-01-28] MEDS: traZODone 50 MG TAB PO PRN (20:19)
[2021-01-29 06:50] VITALS: BP 96/50
[2021-01-29] MEDS: buPROPion **XL** TABLET 150MG (WELLBUTRIN XL) PO SCH (08:16)
[2021-01-29] MEDS: BUPRENORPHINE/NALOXONE 8-2MG SUBLINGUAL TABLET(SUBOXONE) SL SCH ×2 (08:16→15:54)
[2021-01-29] MEDS: SENOKOT S TAB PO SCH ×2 (08:16→20:07)
[2021-01-29] MEDS: GABAPENTIN 400MG CAP PO SCH ×3 (08:16→20:07)
[2021-01-29] MEDS: NICOTINE 21MG/24HR 1 EA TRANSDERMAL TD SCH (08:17)
[2021-01-29] MEDS: BACITRACIN OINTMENT 30GM TUBE TOP SCH (08:18)
--- NOTE | 2021-01-29 11:23 | MHIPNPDOC ---
[facility] Progress Note Progress Note DATE OF SERVICE: 01/29/21 CHIEF COMPLAINT: "I don't hear any voices, I am happier today." SUBJECTIVE: She is a 35-year-old female admitted because of auditory hallucinations. Patient has a history of using methamphetamines. She probably had polysubstance use disorder. She is currently on Suboxone for opioid dependence. She also has drug seeking behavior. She reports when she is hyper, she feels as though she is on top of the world, she has racing thoughts, she is impulsive, goes into drugs, and when she is depressed, she feels hopeless, helpless and has suicidal thoughts. Currently, patient is improving, so her hallucinations have become less. Patient is less depressed, reports her sleep and appetite are better. Pt hears voices sporadically.Which does not bother her. Denies any auditory hallucinations. MENTAL STATUS EXAMINATION: Casually dressed with good personal hygiene. Grooming is good. Psychomotor activity is mildly increased. Made poor eye contact. Speech: Rate, rhythm, volume are good. Thought process: Linear, goal-directed. Thought content: Denied any suicidal or homicidal ideas. Memory: Immediate, remote, recent are good. Mood is mildly depressed. Affect is labile. Insight and judgment are limited. DIAGNOSES: 1. Psychotic disorder, not otherwise specified. 2. Rule out bipolar 2 disorder. 3. Substance-induced mood disorder. 4. Amphetamine use disorder. 5. Opioid use disorder. VITAL SIGNS: Temperature 98.6, respiratory rate 16, pulse 109, blood pressure 120/66, pulse oximetry 96. LABORATORY STUDIES: Chemistry: Triglycerides 83. ASSESSMENT AND PLAN: Patient has long history of drug dependence. She has drug-seeking behavior as well. She reported that she has mood swings and she wanted me to place her on Latuda because she is afraid of weight gain. I will titrate the dose and follow her up. Substitute Zyprexa with Zydis. and increase Latuda 40 mg HS. ESTIMATED LENGTH OF STAY: 1-2 days. TIME SPENT: 30 minutes. Vital Signs Vital Signs Date Time Temp Pulse Resp B/P (MAP) Pulse Ox O2 Delivery O2 Flow Rate FiO2 01/29/21 06:50 98.5 70 18 96/50 (65) 97 Room Air Current Medications Current Medications Medications (Trade) Dose Ordered Sig/Bran Route PRN Reason Start Time Stop Time Status Last Admin Dose Admin Acetaminophen (Tylenol Tab) 650 mg Q6HP PRN PO PAIN / FEVER 01/25/21 17:50 01/29/21 07:03 Al Hydrox/Mg Hydrox/Simethicone (Mylanta) 30 ml Q4HP PRN PO INDIGESTION 01/25/21 17:50 Bacitracin (Bacitracin Oint) 1 dose DAILY TOP 01/26/21 09:00 01/26/21 16:25 Buprenorphine/ Naloxone (Suboxone 8/2mg) 1 tab DAILY@1600 SL 01/26/21 16:00 01/28/21 16:09 Buprenorphine/ Naloxone (Suboxone 8/2mg) 2 tab DAILY SL 01/27/21 09:00 01/29/21 08:16 Bupropion HCl (Wellbutrin Xl) 450 mg DAILY PO 01/26/21 09:00 01/29/21 08:16 Gabapentin (Neurontin) 400 mg TID PO 01/25/21 21:00 01/29/21 08:16 Home Med (Med Rec Complete!) ASDIRECTED XX 01/25/21 16:20 01/25/21 16:39 DC Lurasidone HCl (Latuda) 20 mg DAILY@18 PO 01/27/21 18:00 01/28/21 15:12 DC 01/27/21 18:11 Lurasidone HCl (Latuda) 40 mg DAILY@18 PO 01/28/21 18:00 01/28/21 17:15 Magnesium Hydroxide (Milk Of Magnesia) 30 ml DAILYPRN PRN PO CONSTIPATION 01/25/21 17:50 01/28/21 18:43 Nicotine (Nicoderm Cq 21mg) 1 patch DAILY TD 01/25/21 09:00 01/29/21 08:17 Olanzapine (ZyPREXA) 5 mg TIDP PRN PO AGITATION 01/25/21 14:50 01/28/21 15:12 DC 01/27/21 17:04 Senna/Docusate Sodium (Senokot S) 1 tab BID PO 01/26/21 21:00 01/29/21 08:16 Trazodone HCl (Desyrel) 50 mg QHSP PRN PO INSOMNIA 01/25/21 21:55 01/28/21 20:19 Allergies Coded Allergies: No Known Allergies (Verified , 10/15/20) JANET DILL MD Jan 29, 2021 11:23
[2021-01-29 17:48] VITALS: BP 115/77
[2021-01-29] MEDS: LURASIDONE HCL 40 MG TAB (LATUDA) PO SCH (17:55)
[2021-01-29] MEDS: traZODone 50 MG TAB PO PRN (20:07)
[2021-01-30 06:50] VITALS: BP 130/73
[2021-01-30] MEDS: buPROPion **XL** TABLET 150MG (WELLBUTRIN XL) PO SCH (08:18)
[2021-01-30] MEDS: BUPRENORPHINE/NALOXONE 8-2MG SUBLINGUAL TABLET(SUBOXONE) SL SCH (08:18)
[2021-01-30] MEDS: GABAPENTIN 400MG CAP PO SCH (08:18)
[2021-01-30] MEDS: SENOKOT S TAB PO SCH (08:18)
[2021-01-30] MEDS: NICOTINE 21MG/24HR 1 EA TRANSDERMAL TD SCH (08:21)
[2021-01-30] MEDS: BACITRACIN OINTMENT 30GM TUBE TOP SCH (08:23)
[2021-01-30] MEDS ORDERED: LATU40TA PO (08:49)
--- NOTE | 2021-01-30 09:20 | MHDS ---
[facility] DISCHARGE SUMMARY DATE OF ADMISSION: 01/25/2021 DATE OF DISCHARGE: 01/30/2021 IDENTIFYING DATA: She is a 35-year-old female admitted because of auditory hallucinations. Patient has a history of using methamphetamines and history of polysubstance abuse. She is currently on Suboxone. She has history of bipolar disorder. She was admitted because of suicidal thoughts. COURSE IN THE HOSPITAL: Patient initially was depressed, had suicidal thoughts. She was placed on Latuda, Wellbutrin XL 450 mg once daily, gabapentin 400 mg three times daily and she was also on Suboxone. The patient was also provided with individual, group and milieu therapy. Her mood improved. She was relating well with the staff and with her peers. There was no behavioral problems on the unit. She attended groups. No side effects from the medication. No current suicidal or homicidal ideas. No auditory hallucinations. MENTAL STATUS EXAMINATION: Casually dressed, well-groomed, wearing clean clothes. Made good eye contact. Psychomotor activity is normal. Speech: Rate, rhythm, volume are good. Denied any auditory or visual hallucinations. Denied any suicidal or homicidal ideas. Mood is euthymic. Affect is mood congruent. Memory: Immediate, remote, recent are good. Her insight and judgment is fair to good. VITAL SIGNS: Temperature 98.7, pulse 78, respirations 20, blood pressure 130/73, pulse oximetry 99. LABORATORY STUDIES: Chemistry: Her lipid profile was within normal limits. MEDICATIONS: - lurasidone 40 mg once daily - Suboxone 8/2 mg two tablets daily and one tablet in the evening - Wellbutrin XL 450 mg once daily - gabapentin 400 mg three times a day DISCHARGE INSTRUCTIONS: Patient will be followed up by Dr. Cobb. She will go home. Dr. Cobb is providing her with Suboxone. TIME SPENT: Less than 30 minutes.
== END 2021-01-30 12:00 | disposition home or self-care (01) | DRG 776 ==
LOC: M ED 12:37 → M ED INP 14:48 → M PSY 17:38
PROVIDERS: ADMIT Psychiatry & Neurology Psychiatry; ATTEND Psychiatry & Neurology Psychiatry
DX: F15.14 Other stimulant abuse with stimulant-induced mood disorder (principal); R45.851 Suicidal ideations; F43.10 Post-traumatic stress disorder, unspecified; F90.9 Attention-deficit hyperactivity disorder, unspecified type; F29 Unspecified psychosis not due to a substance or known physiological condition; E03.9 Hypothyroidism, unspecified; Z79.899 Other long term (current) drug therapy; Z20.822 Contact with and (suspected) exposure to COVID-19; Z62.810 Personal history of physical and sexual abuse in childhood; Z98.84 Bariatric surgery status; Z90.49 Acquired absence of other specified parts of digestive tract

== ENCOUNTER → 2022-03-18 | Outpatient (CLI) | payer BC ==
[~2022-03-18] MED LIST changes: +BUPR1FIL SL; +EXCETAB32 PO; -EXCETAB33 PO; +GABA-283 PO; -GABA-845 PO; +LATU40TA2 PO; +NEOM28OI TOP; -TRIPOIN5 TOP
[2022-03-18 16:30] LABS: BASO % 0.4 % (0.0-1.0); EOS # 0.1 10^3/uL (0.0-0.5); EOS % 2.4 % (0.0-3.0); HEMATOCRIT 38.6 % (36.0-47.0); HEMOGLOBIN 12.5 g/dl (12.0-15.5); LYMPH # 1.2 10^3/uL (1.5-5.0); LYMPH % 26.5 % (24.0-44.0); MEAN CORPUSCULAR HEMOGLOBIN 28.3 pg (27.0-33.0); MEAN CORPUSCULAR HGB CONC 32.4 g/dl (32.0-36.5); MEAN CORPUSCULAR VOLUME 87.5 fl (80.0-96.0); MONO # 0.5 10^3/uL (0.0-0.8); NEUTROPHILS # 2.8 10^3/uL (1.5-8.5); NEUTROPHILS % 60.3 % (36.0-66.0); PLATELET COUNT, AUTOMATED 111 10^3/uL (150-450); RED BLOOD COUNT 4.41 10^6/uL (4.00-5.40); WHITE BLOOD COUNT 4.6 10^3/uL (4.0-10.0)
[2022-03-18 16:41] LABS: BLOOD UREA NITROGEN 18 MG/DL (7-18); CALCIUM LEVEL 8.7 MG/DL (8.5-10.1); CARBON DIOXIDE LEVEL 30 MEQ/L (21-32); CHLORIDE LEVEL 106 MEQ/L (98-107); CREATININE FOR GFR 1.01 MG/DL (0.55-1.30); GLOMERULAR FILTRATION RATE > 60.0 (>60); GLUCOSE, FASTING 76 MG/DL (70-100); POTASSIUM SERUM 4.2 MEQ/L (3.5-5.1); SODIUM LEVEL 138 MEQ/L (136-145)
== END ==
LOC: M WUC 14:56
PROVIDERS: ATTEND Nurse Practitioner Family
DX: Z01.818 Encounter for other preprocedural examination (principal)

== ENCOUNTER → 2022-03-26 | Outpatient (CLI) | payer BC, MEDICAID ==
[~2022-03-26] MED LIST changes: +AMPH1CAP5 PO; +ERGO500029 PO; +LATU20TA PO; +WELLTAB38 PO
== END ==
LOC: M LABSMTC 09:55
PROVIDERS: ATTEND Anesthesiology
DX: Z01.818 Encounter for other preprocedural examination (principal); Z11.52 Encounter for screening for COVID-19

== ENCOUNTER 2022-03-31 08:25 | Observation (INO) | payer BC, MEDICAID ==
[~2022-03-31] VITALS: Ht 160 cm; Wt 70.3 kg
[2022-03-31] VITALS (9 sets, daily range): BP systolic 107–125; BP diastolic 62–78
[~2022-03-31 08:25] MED LIST changes: +HEPARIN SOD (PORCINE) 5000UNITS/ML 1ML VIAL/SYRINGE SQ ONE; +ceFAZolin SOD 2 GM in IV 1 EA IV ONE
[2022-03-31] MEDS ORDERED: propofoL 200 MG/20 ML VIAL As Ordered ONE (08:47)
[2022-03-31] MEDS ORDERED: MIDAZOLAM INJ 2MG/2ML VIAL (J2250 PER 1MG) As Ordered ONE (08:47)
[2022-03-31] MEDS ORDERED: LIDOCAINE 2% 100MG/5ML SDV (FOR ANES.) As Ordered ONE (08:47)
[2022-03-31] MEDS ORDERED: dexameTHASONE 4 MG/ML 1ML VIAL (J1100 PER 1MG) As Ordered ONE (08:47)
[2022-03-31] MEDS ORDERED: fentaNYL 250 MCG/5 ML INJECTION As Ordered ONE (08:47)
[2022-03-31] MEDS ORDERED: ROCURONIUM BROMIDE 50 MG/5 ML VIAL As Ordered ONE (08:47)
[2022-03-31] MEDS ORDERED: ONDANSETRON 4MG/2ML VIAL As Ordered ONE (08:47)
[2022-03-31] MEDS ORDERED: SCOPOLAMINE 1MG TRANSDERMAL PATCH TOP ONE (09:10)
[2022-03-31] MEDS ORDERED: LR 1,000 ML IV SCH ×2 (09:20→13:25)
[2022-03-31] MEDS ORDERED: BUPIVACAINE HCL 0.25% 30ML VIAL As Ordered ONE (09:37)
[2022-03-31] MEDS ORDERED: GENTAMICIN SULF 80MG/2ML VIAL As Ordered ONE (09:37)
[2022-03-31] MEDS ORDERED: BUPIVACAINE LIPOSOME/PF 1.3% 20ML VIAL (13.3MG/ML)(EXPAREL) As Ordered ONE (09:37)
[2022-03-31] MEDS ORDERED: diphenhydrAMINE 50MG/ML VIAL (J1200) As Ordered ONE (10:43)
[2022-03-31] MEDS ORDERED: ACETAMINOPHEN 1000MG 100ML IV BTL (OFIRMEV) (J0131 PER 10MG) As Ordered ONE (11:15)
[2022-03-31] MEDS ORDERED: SUGAMMADEX SODIUM 500 MG/5 ML VIAL (BRIDION) As Ordered ONE (11:15)
[2022-03-31] MEDS ORDERED: HYDROmorphone HCL 2MG/ML 1ML VIAL As Ordered ONE (11:29)
[2022-03-31] MEDS ORDERED: METOCLOPRAMIDE INJ 10MG/2ML VIAL (J2765 PER 1) As Ordered ONE (12:51)
[2022-03-31] MEDS ORDERED: fentaNYL 100 MCG/2 ML INJECTION IV PRN (13:25)
[2022-03-31] MEDS ORDERED: HYDROMORPHONE HCL 0.5 MG/ 0.5 ML SYRINGE (J1170 PER 1) IV PRN (13:25)
[2022-03-31] MEDS ORDERED: oxyCODONE 5MG TAB PO PRN (13:25)
[2022-03-31] MEDS ORDERED: ONDANSETRON 4MG/2ML VIAL IV PRN ×2 (13:25→13:35)
[2022-03-31] MEDS ORDERED: ACETAMINOPHEN TAB 650MG DOSE (2X325MG) PO PRN (13:35)
[2022-03-31] MEDS: LR 1,000 ML IV SCH (17:00)
[2022-03-31] MEDS: ceFAZolin SOD 1 GM in D5W MINI-BAG PLUS 50 ML IV SCH (18:48)
[2022-03-31] MEDS: traMADol 50 MG TAB PO PRN (18:50)
[2022-03-31] MEDS: BUPRENORPHINE/NALOXONE 8-2MG SUBLINGUAL TABLET(SUBOXONE) SL SCH (21:06)
[2022-04-01] MEDS: LR 1,000 ML IV SCH ×2 (00:31→09:35)
[2022-04-01] MEDS: traMADol 50 MG TAB PO PRN ×3 (00:34→12:21)
[2022-04-01 02:00] VITALS: BP 115/67
[2022-04-01] MEDS: ceFAZolin SOD 1 GM in D5W MINI-BAG PLUS 50 ML IV SCH ×2 (03:49→11:34)
[2022-04-01 05:24] VITALS: BP 121/68
[2022-04-01] MEDS: BUPRENORPHINE/NALOXONE 8-2MG SUBLINGUAL TABLET(SUBOXONE) SL SCH (08:07)
[2022-04-01] MEDS ORDERED: TRAM50TA2 PO (08:44)
[2022-04-01] MEDS ORDERED: buPROPion **XL** TABLET 150MG (WELLBUTRIN XL) PO SCH (09:00)
== END 2022-04-01 12:50 | disposition home or self-care (01) ==
LOC: M SDC 08:25 → M ED INP 08:26 → M MS5PR 14:55
PROVIDERS: ADMIT Plastic Surgery Surgery of the Hand; ATTEND Plastic Surgery Surgery of the Hand
DX: M54.07 Panniculitis affecting regions of neck and back, lumbosacral region (principal); L98.7 Excessive and redundant skin and subcutaneous tissue; F17.210 Nicotine dependence, cigarettes, uncomplicated; F90.9 Attention-deficit hyperactivity disorder, unspecified type; F11.11 Opioid abuse, in remission; Z79.891 Long term (current) use of opiate analgesic; Z98.84 Bariatric surgery status; G43.909 Migraine, unspecified, not intractable, without status migrainosus; F41.9 Anxiety disorder, unspecified; F32.A Depression, unspecified; Z79.899 Other long term (current) drug therapy; D69.6 Thrombocytopenia, unspecified
CPT/HCPCS: 15830; 15847; 81025; 88300; 96365; 96366; C9290; J0131; J0690; J1100; J1170; J1200; J1580; J1644; J2250; J2405; J2765; J3010

== ENCOUNTER → 2022-04-30 | Outpatient (CLI) | payer BC, OTHER ==
[~2022-04-30] MED LIST changes: +ADDE30CA3 PO; -HEPARIN SOD (PORCINE) 5000UNITS/ML 1ML VIAL/SYRINGE SQ ONE; +TRAM50TA2 PO; -ceFAZolin SOD 2 GM in IV 1 EA IV ONE
[2022-04-30 18:42] LABS: C REACTIVE PROTEIN QUANTITATIV < 0.30 MG/DL (0.00-0.30)
[2022-04-30 20:30] LABS: HEPATITIS B SURFACE ANTIGEN NEGATIVE (NEGATIVE)
[2022-04-30 20:55] LABS: HEPATITIS B CORE ANTIBODY IGM NEGATIVE (NEGATIVE); HIV 1&2 SCREEN CENTAUR NEGATIVE (NEGATIVE)
[2022-04-30 22:28] LABS: FOLATE 12.9 NG/ML
[2022-05-01 12:59] LABS: VITAMIN B12 LEVEL 416 PG/ML
[2022-05-01 20:19] LABS: HEPATITIS C VIRUS ABY INDEX 1.3 INDEX (<0.8)
== END ==
LOC: M LAB 16:45
PROVIDERS: ATTEND Internal Medicine
DX: D69.6 Thrombocytopenia, unspecified (principal)

== ENCOUNTER → 2022-05-15 | Outpatient (CLI) | payer BC, MEDICAID | LOC: M RAD 06:37 | PROVIDERS: ATTEND Internal Medicine | DX: D69.6 Thrombocytopenia, unspecified (principal) ==

== ENCOUNTER 2022-07-11 02:13 | Emergency (ER) | payer BC, OTHER ==
[~2022-07-11] VITALS: Ht 160 cm; Wt 63.0 kg
[2022-07-11 02:14] VITALS: BP 155/100
== END 2022-07-11 02:45 | disposition left against medical advice (07) ==
LOC: M ED 02:13
DX: Z53.21 Procedure and treatment not carried out due to patient leaving prior to being seen by health care provider (principal)

== ENCOUNTER 2022-07-11 05:08 | Emergency (ER) | payer BC, OTHER ==
[~2022-07-11 05:08] MED LIST changes: -DOXY-350 PO; +DOXY-444 PO
[2022-07-11 05:31] LABS: HEMATOCRIT 43.1 % (36.0-47.0); HEMOGLOBIN 14.1 g/dl (12.0-15.5); MEAN CORPUSCULAR HEMOGLOBIN 27.4 pg (27.0-33.0); MEAN CORPUSCULAR HGB CONC 32.7 g/dl (32.0-36.5); MEAN CORPUSCULAR VOLUME 83.9 fl (80.0-96.0); PLATELET COUNT, AUTOMATED 182 10^3/uL (150-450); RED BLOOD COUNT 5.14 10^6/uL (4.00-5.40); WHITE BLOOD COUNT 8.4 10^3/uL (4.0-10.0)
[2022-07-11 06:01] LABS: RSV AMPLIFICATION NEGATIVE (NEGATIVE)
[2022-07-11 06:05] LABS: HCG, SERUM QUALITATIVE NEGATIVE (NEGATIVE)
[2022-07-11 06:08] LABS: AMPHETAMINES LEVEL URINE POSITIVE (NEGATIVE); BARBITURATES URINE NEGATIVE (NEGATIVE); BENZODIAZEPINES URINE NEGATIVE (NEGATIVE); CANNABINOIDS URINE NEGATIVE (NEGATIVE); COCAINE METABOLITE URINE NEGATIVE (NEGATIVE); METHADONE URINE NEGATIVE (NEGATIVE); OPIATES URINE NEGATIVE (NEGATIVE); PHENCYCLIDINE URINE NEGATIVE (NEGATIVE)
[2022-07-11 06:09] VITALS: BP 117/81
[2022-07-11 07:18] LABS: ACETAMINOPHEN LEVEL < 2.0 UG/ML (10.0-30.0); ALBUMIN 4.8 GM/DL (3.2-5.2); ALT/SGPT 30 U/L (12-78); BILIRUBIN,DIRECT 0.2 MG/DL (0.0-0.2); BILIRUBIN,TOTAL 0.6 MG/DL (0.2-1.0); BLOOD UREA NITROGEN 14 MG/DL (7-18); CALCIUM LEVEL 9.7 MG/DL (8.5-10.1); CARBON DIOXIDE LEVEL 23 MEQ/L (21-32); CHLORIDE LEVEL 105 MEQ/L (98-107); CREATININE FOR GFR 1.08 MG/DL (0.55-1.30); ETHYL ALCOHOL (ETHANOL) < 0.003 % (0.000-0.010); GLOMERULAR FILTRATION RATE > 60.0 (>60); GLUCOSE, FASTING 110 MG/DL (70-100); POTASSIUM SERUM 3.8 MEQ/L (3.5-5.1); SALICYLATE LEVEL < 1.7 MG/DL (5.0-30.0); SODIUM LEVEL 138 MEQ/L (136-145); TOTAL PROTEIN 8.4 GM/DL (6.4-8.2)
== END 2022-07-11 07:59 | disposition home or self-care (01) ==
LOC: M ED 05:08
DX: F43.0 Acute stress reaction (principal); R45.851 Suicidal ideations; F32.A Depression, unspecified; F17.200 Nicotine dependence, unspecified, uncomplicated; Z79.899 Other long term (current) drug therapy; Z79.83 Long term (current) use of bisphosphonates

== ENCOUNTER 2022-07-12 01:09 | Emergency (ER) | payer BC ==
[~2022-07-12] VITALS: Ht 160 cm; Wt 65.4 kg
[~2022-07-12 01:09] MED LIST changes: +DOXY-350 PO; -DOXY-444 PO
[2022-07-12 01:12] VITALS: BP 125/86
== END 2022-07-12 06:58 | disposition left against medical advice (07) ==
LOC: M ED 01:09
DX: Z53.21 Procedure and treatment not carried out due to patient leaving prior to being seen by health care provider (principal)

== ENCOUNTER 2022-07-28 19:57 | Emergency (ER) | payer BC ==
[~2022-07-28] VITALS: Ht 160 cm; Wt 61.4 kg
[2022-07-28 22:00] LABS: HEMATOCRIT 38.1 % (36.0-47.0); HEMOGLOBIN 12.3 g/dl (12.0-15.5); MEAN CORPUSCULAR HEMOGLOBIN 27.5 pg (27.0-33.0); MEAN CORPUSCULAR HGB CONC 32.3 g/dl (32.0-36.5); PLATELET COUNT, AUTOMATED 170 10^3/uL (150-450); RED BLOOD COUNT 4.48 10^6/uL (4.00-5.40); WHITE BLOOD COUNT 4.6 10^3/uL (4.0-10.0)
[2022-07-28 22:43] LABS: AMPHETAMINES LEVEL URINE POSITIVE (NEGATIVE); BARBITURATES URINE NEGATIVE (NEGATIVE); BENZODIAZEPINES URINE NEGATIVE (NEGATIVE); CANNABINOIDS URINE NEGATIVE (NEGATIVE); COCAINE METABOLITE URINE NEGATIVE (NEGATIVE); METHADONE URINE NEGATIVE (NEGATIVE); OPIATES URINE NEGATIVE (NEGATIVE); PHENCYCLIDINE URINE NEGATIVE (NEGATIVE)
[2022-07-28 22:52] LABS: ACETAMINOPHEN LEVEL 5.2 UG/ML (10.0-30.0); ALT/SGPT 45 U/L (12-78); BILIRUBIN,DIRECT 0.2 MG/DL (0.0-0.2); BILIRUBIN,TOTAL 0.5 MG/DL (0.2-1.0); BLOOD UREA NITROGEN 17 MG/DL (7-18); CALCIUM LEVEL 8.9 MG/DL (8.5-10.1); CARBON DIOXIDE LEVEL 31 MEQ/L (21-32); CHLORIDE LEVEL 104 MEQ/L (98-107); CREATININE FOR GFR 1.04 MG/DL (0.55-1.30); ETHYL ALCOHOL (ETHANOL) < 0.003 % (0.000-0.010); GLOMERULAR FILTRATION RATE > 60.0 (>60); GLUCOSE, FASTING 111 MG/DL (70-100); POTASSIUM SERUM 3.7 MEQ/L (3.5-5.1); SALICYLATE LEVEL < 1.7 MG/DL (5.0-30.0); SODIUM LEVEL 139 MEQ/L (136-145); TOTAL PROTEIN 7.2 GM/DL (6.4-8.2)
[2022-07-28 23:39] LABS: RSV AMPLIFICATION NEGATIVE (NEGATIVE)
[2022-07-29] MEDS ORDERED: BUPR1FIL SL (00:05)
[2022-07-29] MEDS ORDERED: LATU40TA2 PO (00:05)
[2022-07-29] MEDS ORDERED: ADDE10CA3 PO ×2 (00:05)
[2022-07-29] MEDS ORDERED: CLON-412 PO (00:06)
[2022-07-29] MEDS ORDERED: HALO0.5H PO (00:06)
[2022-07-29] MEDS ORDERED: MULT-90 PO (00:06)
[2022-07-29] MEDS ORDERED: HOME MED LIST COMPLETE! XX SCH (00:10)
[2022-07-29 02:43] VITALS: BP 117/79
== END 2022-07-29 02:52 | disposition home or self-care (01) ==
LOC: M ED 19:57
DX: F19.10 Other psychoactive substance abuse, uncomplicated (principal); F41.9 Anxiety disorder, unspecified; F43.10 Post-traumatic stress disorder, unspecified; F90.9 Attention-deficit hyperactivity disorder, unspecified type; Z98.84 Bariatric surgery status; Z79.83 Long term (current) use of bisphosphonates; Z79.899 Other long term (current) drug therapy

== ENCOUNTER → 2022-10-20 | Outpatient (CLI) | payer BC, OTHER, MEDICAID ==
[~2022-10-20] MED LIST changes: +ADDE10CA3 PO; -DOXY-350 PO; +DOXY-444 PO; +HALO0.5H PO; +MULT-90 PO
[2022-10-20 18:17] LABS: BILIRUBIN,DIRECT 0.1 MG/DL (<0.4)
[2022-10-20 19:44] LABS: ALBUMIN 3.9 G/DL (3.2-5.2); BILIRUBIN,TOTAL 0.3 MG/DL (0.3-1.2); TOTAL PROTEIN 6.7 G/DL (5.7-8.2)
== END ==
LOC: M WUC 11:47
PROVIDERS: ATTEND Nurse Practitioner Family
DX: B35.1 Tinea unguium (principal)

== ENCOUNTER → 2022-12-16 | Outpatient (CLI) | payer BC ==
[~2022-12-16] MED LIST changes: +DOCU100C16 PO; +KLON1TAB PO; +LUMA42CA PO
[2022-12-16 11:39] LABS: HEMOGLOBIN 11.6 g/dl (12.0-15.5); LYMPH # 0.7 10^3/uL (1.5-5.0); MEAN CORPUSCULAR HEMOGLOBIN 27.3 pg (27.0-33.0); MEAN CORPUSCULAR HGB CONC 32.2 g/dl (32.0-36.5); MEAN CORPUSCULAR VOLUME 84.7 fl (80.0-96.0); MONO # 0.2 10^3/uL (0.0-0.8); NEUTROPHILS # 1.3 10^3/uL (1.5-8.5); RED BLOOD COUNT 4.25 10^6/uL (4.00-5.40); WHITE BLOOD COUNT 2.1 10^3/uL (4.0-10.0)
[2022-12-16 12:02] LABS: IRON (FE) 77 UG/DL (50-170); PLATELET COUNT, AUTOMATED 84 10^3/uL (150-450)
[2022-12-16 12:03] LABS: PERCENT SATURATION 23.8 % (13.2-45.0); TOTAL IRON BINDING CAPACITY 323 UG/DL (250-425)
[2022-12-16 12:06] LABS: ALBUMIN 3.6 G/DL (3.2-5.2); ALKALINE PHOSPHATASE 57 U/L (46-116); ALT/SGPT 43 U/L (7.0-40); AST/SGOT 78 U/L (<34); BILIRUBIN,DIRECT 0.2 MG/DL (<0.4); BILIRUBIN,TOTAL 0.4 MG/DL (0.3-1.2); BLOOD UREA NITROGEN 20 MG/DL (9-23); CREATININE FOR GFR 0.84 MG/DL (0.55-1.30); FERRITIN 11.3 NG/ML (7.3-270.7); GLOMERULAR FILTRATION RATE > 60.0 (>60); TOTAL PROTEIN 6.2 G/DL (5.7-8.2)
[2022-12-16 12:21] LABS: HEPATITIS B SURFACE ANTIGEN NEGATIVE (NEGATIVE)
[2022-12-16 12:38] LABS: PROTHROMBIN TIME 13.4 SECONDS (12.5-14.5)
[2022-12-16 12:39] LABS: PARTIAL THROMBOPLASTIN TIME 36.8 SECONDS (24.8-34.2)
[2022-12-19 00:08] LABS: ANA (HEP2) Positive (.); ANTI-MITOCHONDRIAL ANTIBODY <20.0 Units (0.0-20.0); HEPATITIS A IgG TOTAL Negative (Negative); HEPATITIS C QUANTITATION HCV Not Detected IU/mL (.); LIVER-KIDNEY MICROSOMAL ABY <20.1 Units (0.0-20.0)
== END ==
LOC: M RAD 09:55
PROVIDERS: ATTEND Internal Medicine Gastroenterology
DX: R94.5 Abnormal results of liver function studies (principal); R16.1 Splenomegaly, not elsewhere classified

== ENCOUNTER → 2022-12-29 | Outpatient (CLI) | payer BC | LOC: M LABSMTC 09:15 | PROVIDERS: ATTEND Anesthesiology | DX: Z01.812 Encounter for preprocedural laboratory examination (principal) ==

== ENCOUNTER 2023-01-01 10:44 | Day surgery (SDC) | payer BC, MEDICAID ==
[~2023-01-01] VITALS: Ht 160 cm; Wt 63.0 kg
[~2023-01-01 10:44] MED LIST changes: +NS 1,000 ML IV ONE
[2023-01-01 13:01] VITALS: BP 106/63
== END 2023-01-01 13:00 | disposition home or self-care (01) ==
LOC: M OPP 10:44
PROVIDERS: ATTEND Internal Medicine Gastroenterology
DX: Q43.8 Other specified congenital malformations of intestine (principal); K64.4 Residual hemorrhoidal skin tags; K64.8 Other hemorrhoids; K52.9 Noninfective gastroenteritis and colitis, unspecified; K91.89 Other postprocedural complications and disorders of digestive system; K29.70 Gastritis, unspecified, without bleeding; N28.1 Cyst of kidney, acquired; F43.10 Post-traumatic stress disorder, unspecified; F17.290 Nicotine dependence, other tobacco product, uncomplicated; Z79.899 Other long term (current) drug therapy; Z86.19 Personal history of other infectious and parasitic diseases

== ENCOUNTER 2023-04-29 11:52 | Inpatient (IN) | payer BC, MEDICAID, OTHER ==
[~2023-04-29 11:52] MED LIST changes: +ADAP0.02; +CLIN1PAD2; +FERR325T3 PO; +MIRA3350; -NS 1,000 ML IV ONE; +OMEP40CA5
[2023-04-29 13:17] LABS: HEMATOCRIT 36.3 % (36.0-47.0); HEMOGLOBIN 12.4 g/dl (12.0-15.5); MEAN CORPUSCULAR HEMOGLOBIN 28.4 pg (27.0-33.0); MEAN CORPUSCULAR HGB CONC 34.2 g/dl (32.0-36.5); MEAN CORPUSCULAR VOLUME 83.3 fl (80.0-96.0); PLATELET COUNT, AUTOMATED 136 10^3/uL (150-450); RED BLOOD COUNT 4.36 10^6/uL (4.00-5.40); WHITE BLOOD COUNT 5.8 10^3/uL (4.0-10.0)
[2023-04-29 13:36] LABS: ETHYL ALCOHOL (ETHANOL) < 0.003 % (0.000-0.010)
[2023-04-29 13:37] LABS: ACETAMINOPHEN LEVEL < 2.0 UG/ML (10.0-20.0); BARBITURATES URINE NEGATIVE (NEGATIVE); BENZODIAZEPINES URINE NEGATIVE (NEGATIVE); CANNABINOIDS URINE NEGATIVE (NEGATIVE); COCAINE METABOLITE URINE NEGATIVE (NEGATIVE); METHADONE URINE NEGATIVE (NEGATIVE); OPIATES URINE NEGATIVE (NEGATIVE); PHENCYCLIDINE URINE NEGATIVE (NEGATIVE)
[2023-04-29 13:38] LABS: ALKALINE PHOSPHATASE 70 U/L (46-116); ALT/SGPT 57 U/L (7.0-40); AST/SGOT 160 U/L (<34); BILIRUBIN,DIRECT 0.2 MG/DL (<0.4); BILIRUBIN,TOTAL 0.6 MG/DL (0.3-1.2); BLOOD UREA NITROGEN 17 MG/DL (9-23); CALCIUM LEVEL 8.4 MG/DL (8.5-10.1); CARBON DIOXIDE LEVEL 27 MMOL/L (20-31); CHLORIDE LEVEL 107 MMOL/L (98-107); CREATININE FOR GFR 0.92 MG/DL (0.55-1.30); GLOMERULAR FILTRATION RATE > 60.0 (>60); GLUCOSE, FASTING 75 MG/DL (60-100); POTASSIUM SERUM 3.2 MMOL/L (3.5-5.1); SALICYLATE LEVEL 3.8 MG/DL (<30); SODIUM LEVEL 143 MMOL/L (136-145); TOTAL PROTEIN 6.8 G/DL (5.7-8.2)
[2023-04-29 13:43] LABS: AMPHETAMINES LEVEL URINE POSITIVE (NEGATIVE); THYROID STIMULATING HORMONE 3.411 uIU/ML (0.55-4.78)
[2023-04-29] MEDS ORDERED: POTASSIUM CHLORIDE 10MEQ SR TABLET PO ONE (13:45)
[2023-04-29 13:57] LABS: HCG, SERUM QUALITATIVE NEGATIVE (NEGATIVE)
[2023-04-29] MEDS ORDERED: IBUPROFEN 400MG TAB PO PRN (14:25)
[2023-04-29] MEDS ORDERED: MAALOX 30 ML SUSP *UDC PO PRN (14:25)
[2023-04-29] MEDS ORDERED: ACETAMINOPHEN TAB 650MG DOSE (2X325MG) PO PRN (14:25)
[2023-04-29] MEDS ORDERED: MED REC IN PROGRESS XX SCH (14:35)
[2023-04-29] MEDS ORDERED: CLON1TAB8 PO (15:29)
[2023-04-29] MEDS ORDERED: ADDE20TA PO (15:29)
[2023-04-29] MEDS ORDERED: BUPR1FIL SL (15:29)
[2023-04-29] MEDS ORDERED: ERGO500029 PO (15:29)
[2023-04-29] MEDS ORDERED: BUPR-368 PO (15:29)
[2023-04-29] MEDS ORDERED: HOME MED LIST COMPLETE! XX SCH (15:30)
[2023-04-29] MEDS: OLANZapine ORAL DISINTEGRATING TAB 5MG PO PRN (20:17)
[2023-04-29 22:34] VITALS: BP 97/58; TEMP 96.9; O2SAT 98
[2023-04-30 06:11] VITALS: BP 100/64; TEMP 96.8; O2SAT 99
[2023-04-30 09:09] LABS: HEMATOCRIT 33.8 % (36.0-47.0); HEMOGLOBIN 11.2 g/dl (12.0-15.5); MEAN CORPUSCULAR HEMOGLOBIN 27.9 pg (27.0-33.0); MEAN CORPUSCULAR HGB CONC 33.1 g/dl (32.0-36.5); MEAN CORPUSCULAR VOLUME 84.3 fl (80.0-96.0); PLATELET COUNT, AUTOMATED 117 10^3/uL (150-450); RED BLOOD COUNT 4.01 10^6/uL (4.00-5.40); WHITE BLOOD COUNT 2.9 10^3/uL (4.0-10.0)
[2023-04-30 09:27] LABS: BLOOD UREA NITROGEN 16 MG/DL (9-23); CALCIUM LEVEL 7.8 MG/DL (8.5-10.1); CARBON DIOXIDE LEVEL 28 MMOL/L (20-31); CHLORIDE LEVEL 107 MMOL/L (98-107); CREATININE FOR GFR 0.77 MG/DL (0.55-1.30); GLOMERULAR FILTRATION RATE > 60.0 (>60); GLUCOSE, FASTING 73 MG/DL (60-100); POTASSIUM SERUM 3.3 MMOL/L (3.5-5.1); SODIUM LEVEL 141 MMOL/L (136-145)
[2023-04-30 10:08] LABS: HEPATITIS B CORE ANTIBODY IGM NEGATIVE (NEGATIVE); HEPATITIS C VIRUS ABY INDEX 0.79 INDEX (<0.8)
[2023-04-30 10:53] LABS: ALBUMIN 3.2 G/DL (3.2-5.2); ALKALINE PHOSPHATASE 63 U/L (46-116); ALT/SGPT 45 U/L (7.0-40); AST/SGOT 118 U/L (<34); BILIRUBIN,DIRECT 0.3 MG/DL (<0.4); BILIRUBIN,TOTAL 0.6 MG/DL (0.3-1.2); TOTAL PROTEIN 5.8 G/DL (5.7-8.2)
[2023-04-30] MEDS ORDERED: POTASSIUM CHLORIDE 10MEQ SR TABLET PO ONE (11:00)
[2023-04-30] MEDS: BUPRENORPHINE/NALOXONE 8-2MG SUBLINGUAL TABLET(SUBOXONE) SL SCH ×2 (11:28→21:13)
[2023-04-30] MEDS: VITAMIN D 1,000 INTERNATIONAL UNITS TABLET PO SCH (11:28)
[2023-04-30] MEDS: NICOTINE 21MG/24HR 1 EA TRANSDERMAL TD SCH (11:38)
[2023-04-30] MEDS: LURASIDONE HCL 40MG TAB (LATUDA) PO SCH (12:40)
[2023-04-30 16:11] VITALS: BP 116/67; TEMP 97.9; O2SAT 100
[2023-04-30] MEDS: OLANZapine ORAL DISINTEGRATING TAB 5MG PO PRN (23:51)
[2023-04-30] MEDS: traZODone 50 MG TAB PO PRN (23:51)
[2023-05-01 06:34] VITALS: BP 100/58; TEMP 98; O2SAT 98
[2023-05-01 06:39] LABS: BASO % 0.3 % (0.0-1.0); HEMATOCRIT 37.1 % (36.0-47.0); HEMOGLOBIN 12.1 g/dl (12.0-15.5); LYMPH # 1.1 10^3/uL (1.5-5.0); LYMPH % 30.3 % (24.0-44.0); MEAN CORPUSCULAR HEMOGLOBIN 27.9 pg (27.0-33.0); MEAN CORPUSCULAR HGB CONC 32.6 g/dl (32.0-36.5); MEAN CORPUSCULAR VOLUME 85.5 fl (80.0-96.0); MONO # 0.3 10^3/uL (0.0-0.8); MONO % 9.1 % (2.0-8.0); NEUTROPHILS # 2.2 10^3/uL (1.5-8.5); NEUTROPHILS % 59.7 % (36.0-66.0); PLATELET COUNT, AUTOMATED 137 10^3/uL (150-450); RED BLOOD COUNT 4.34 10^6/uL (4.00-5.40); WHITE BLOOD COUNT 3.6 10^3/uL (4.0-10.0)
[2023-05-01 07:06] LABS: ALBUMIN 3.1 G/DL (3.2-5.2); ALKALINE PHOSPHATASE 62 U/L (46-116); ALT/SGPT 38 U/L (7.0-40); AST/SGOT 93 U/L (<34); BILIRUBIN,TOTAL 0.5 MG/DL (0.3-1.2); BLOOD UREA NITROGEN 14 MG/DL (9-23); CALCIUM LEVEL 8.1 MG/DL (8.5-10.1); CARBON DIOXIDE LEVEL 28 MMOL/L (20-31); CHLORIDE LEVEL 109 MMOL/L (98-107); CHOLESTEROL LEVEL 102 MG/DL (<200); CHOLESTEROL RISK RATIO 2.28 (<5); CREATININE FOR GFR 0.67 MG/DL (0.55-1.30); GLOMERULAR FILTRATION RATE > 60.0 (>60); GLUCOSE, FASTING 74 MG/DL (60-100); HDL CHOLESTEROL 44.6 MG/DL (>40); LDL CHOLESTEROL 45.4 MG/DL (<100); NON-HDL-C 57.4 MG/DL; POTASSIUM SERUM 4.1 MMOL/L (3.5-5.1); SODIUM LEVEL 142 MMOL/L (136-145); TOTAL PROTEIN 5.7 G/DL (5.7-8.2); TRIGLYCERIDES LEVEL 60 MG/DL (<150)
[2023-05-01] MEDS: NICOTINE 21MG/24HR 1 EA TRANSDERMAL TD SCH (08:46)
[2023-05-01] MEDS: FERROUS SULFATE 325MG TAB PO SCH (08:46)
[2023-05-01] MEDS: VITAMIN D 1,000 INTERNATIONAL UNITS TABLET PO SCH (08:46)
[2023-05-01] MEDS: LURASIDONE HCL 40MG TAB (LATUDA) PO SCH (08:46)
[2023-05-01] MEDS: BUPRENORPHINE/NALOXONE 8-2MG SUBLINGUAL TABLET(SUBOXONE) SL SCH ×2 (08:46→21:32)
[2023-05-01] MEDS: CEPHALEXIN 500 MG CAP PO SCH ×4 (10:48→21:32)
[2023-05-01] MEDS: OLANZapine ORAL DISINTEGRATING TAB 5MG PO PRN (18:37)
[2023-05-02 06:33] VITALS: BP 103/59; TEMP 97.9; O2SAT 100
[2023-05-02] MEDS: MOM 30ML SUSPENSION UDC PO PRN (08:12)
[2023-05-02] MEDS: CEPHALEXIN 500 MG CAP PO SCH ×4 (08:13→21:14)
[2023-05-02] MEDS: OLANZapine ORAL DISINTEGRATING TAB 5MG PO PRN ×2 (08:13→18:15)
[2023-05-02] MEDS: VITAMIN D 1,000 INTERNATIONAL UNITS TABLET PO SCH (08:14)
[2023-05-02] MEDS: NICOTINE 21MG/24HR 1 EA TRANSDERMAL TD SCH (08:15)
[2023-05-02] MEDS: LURASIDONE HCL 40MG TAB (LATUDA) PO SCH (08:15)
[2023-05-02] MEDS: BUPRENORPHINE/NALOXONE 8-2MG SUBLINGUAL TABLET(SUBOXONE) SL SCH ×2 (09:15→21:14)
[2023-05-02] MEDS ORDERED: NICOTINE 21MG/24HR 1 EA TRANSDERMAL TD PRN (11:45)
[2023-05-02 17:53] VITALS: BP 124/59; TEMP 98.5
[2023-05-02] MEDS: diphenhydrAMINE 25MG CAP PO PRN (18:15)
[2023-05-02] MEDS: traZODone 50 MG TAB PO PRN (21:14)
[2023-05-03 06:11] VITALS: BP 117/66; TEMP 97.9; O2SAT 98
[2023-05-03] MEDS: BUPRENORPHINE/NALOXONE 8-2MG SUBLINGUAL TABLET(SUBOXONE) SL SCH ×2 (10:12→21:24)
[2023-05-03] MEDS: FERROUS SULFATE 325MG TAB PO SCH (10:13)
[2023-05-03] MEDS: CEPHALEXIN 500 MG CAP PO SCH ×4 (10:13→21:24)
[2023-05-03] MEDS: LURASIDONE HCL 40MG TAB (LATUDA) PO SCH (10:13)
[2023-05-03] MEDS: VITAMIN D 1,000 INTERNATIONAL UNITS TABLET PO SCH (10:13)
[2023-05-03 17:33] VITALS: BP 112/70; TEMP 98.2; O2SAT 98
[2023-05-03] MEDS: OLANZapine ORAL DISINTEGRATING TAB 5MG PO PRN (17:59)
[2023-05-04 06:10] VITALS: BP 108/69; TEMP 98.7; O2SAT 97
[2023-05-04] MEDS: LURASIDONE HCL 40MG TAB (LATUDA) PO SCH (07:47)
[2023-05-04] MEDS: CEPHALEXIN 500 MG CAP PO SCH ×4 (09:07→20:19)
[2023-05-04] MEDS: BUPRENORPHINE/NALOXONE 8-2MG SUBLINGUAL TABLET(SUBOXONE) SL SCH ×2 (09:07→20:19)
[2023-05-04] MEDS: VITAMIN D 1,000 INTERNATIONAL UNITS TABLET PO SCH (09:07)
[2023-05-04] MEDS: buPROPion **XL** TABLET 150MG (WELLBUTRIN XL) PO SCH (09:43)
[2023-05-04] MEDS: MOM 30ML SUSPENSION UDC PO PRN (15:04)
[2023-05-04] MEDS: diphenhydrAMINE 25MG CAP PO PRN (15:04)
[2023-05-04 18:21] VITALS: BP 117/65; TEMP 97.8; O2SAT 98
[2023-05-04] MEDS: traZODone 50 MG TAB PO PRN (23:27)
[2023-05-05 06:20] VITALS: BP 125/66; TEMP 97; O2SAT 98
[2023-05-05] MEDS: LURASIDONE HCL 40MG TAB (LATUDA) PO SCH (08:16)
[2023-05-05] MEDS: BUPRENORPHINE/NALOXONE 8-2MG SUBLINGUAL TABLET(SUBOXONE) SL SCH (08:16)
[2023-05-05] MEDS: buPROPion **XL** TABLET 150MG (WELLBUTRIN XL) PO SCH (08:16)
[2023-05-05] MEDS: VITAMIN D 1,000 INTERNATIONAL UNITS TABLET PO SCH (08:16)
[2023-05-05] MEDS: CEPHALEXIN 500 MG CAP PO SCH ×2 (08:17→13:04)
[2023-05-05] MEDS: FERROUS SULFATE 325MG TAB PO SCH (08:17)
[2023-05-05] MEDS ORDERED: TRAZ-252 PO (10:14)
[2023-05-05] MEDS ORDERED: LATU40TA2 PO (10:14)
[2023-05-05] MEDS ORDERED: BUPR150T12 PO (10:14)
[2023-05-05] MEDS ORDERED: OLAN5ZYD PO (10:14)
[2023-05-05] MEDS ORDERED: NICO21PAT TD (10:14)
== END 2023-05-05 13:48 | disposition home or self-care (01) | DRG 751 ==
LOC: M ED 11:52 → M ED INP 14:23 → M PSY 22:06
PROVIDERS: ADMIT Student in an Organized Health Care Education/Training Program; ATTEND Student in an Organized Health Care Education/Training Program
DX: F28 Other psychotic disorder not due to a substance or known physiological condition (principal); D69.6 Thrombocytopenia, unspecified; S91.312A Laceration without foreign body, left foot, initial encounter; F60.89 Other specific personality disorders; F43.10 Post-traumatic stress disorder, unspecified; F41.9 Anxiety disorder, unspecified; F15.90 Other stimulant use, unspecified, uncomplicated; Z79.899 Other long term (current) drug therapy; E87.6 Hypokalemia; E03.9 Hypothyroidism, unspecified; W29.3XXA Contact with powered garden and outdoor hand tools and machinery, initial encounter; Y92.009 Unspecified place in unspecified non-institutional (private) residence as the place of occurrence of the external cause

== ENCOUNTER → 2023-07-19 | Outpatient (CLI) | payer BC, MEDICAID, SELFPAY ==
[~2023-07-19] MED LIST changes: +ADDE20TA PO; +BUPR-368 PO; +BUPR150T12 PO; +CLON1TAB8 PO; -GABA-283 PO; +GABA-284 PO; +OLAN5ZYD PO; +TRAZ-252 PO
[2023-07-19 16:36] LABS: URIC ACID 4.1 MG/DL (3.1-7.8)
[2023-07-19 16:38] LABS: C REACTIVE PROTEIN QUANTITATIV < 0.40 MG/DL (<1.0)
[2023-07-19 16:39] LABS: RHEUMATOID FACTOR QUANT < 3.5 IU/ML (<14)
[2023-07-19 16:40] LABS: ALBUMIN 3.6 G/DL (3.2-5.2); ALKALINE PHOSPHATASE 75 U/L (46-116); ALT/SGPT 159 U/L (7.0-40); AST/SGOT 326 U/L (<34); BILIRUBIN,TOTAL 0.3 MG/DL (0.3-1.2); BLOOD UREA NITROGEN 20 MG/DL (9-23); CALCIUM LEVEL 8.7 MG/DL (8.5-10.1); CARBON DIOXIDE LEVEL 34 MMOL/L (20-31); CHLORIDE LEVEL 103 MMOL/L (98-107); CREATININE FOR GFR 0.71 MG/DL (0.55-1.30); GLOMERULAR FILTRATION RATE > 60.0 (>60); GLUCOSE, FASTING 87 MG/DL (60-100); POTASSIUM SERUM 4.3 MMOL/L (3.5-5.1); SODIUM LEVEL 140 MMOL/L (136-145); TOTAL PROTEIN 6.2 G/DL (5.7-8.2)
[2023-07-19 17:08] LABS: BASO % 0.8 % (0.0-1.0); HEMATOCRIT 40.4 % (36.0-47.0); HEMOGLOBIN 12.6 g/dl (12.0-15.5); LYMPH # 0.6 10^3/uL (1.5-5.0); LYMPH % 16.6 % (24.0-44.0); MEAN CORPUSCULAR HEMOGLOBIN 27.5 pg (27.0-33.0); MEAN CORPUSCULAR HGB CONC 31.2 g/dl (32.0-36.5); MEAN CORPUSCULAR VOLUME 88.2 fl (80.0-96.0); MONO # 0.3 10^3/uL (0.0-0.8); MONO % 7.5 % (2.0-8.0); NEUTROPHILS # 2.8 10^3/uL (1.5-8.5); NEUTROPHILS % 74.8 % (36.0-66.0); PLATELET COUNT, AUTOMATED 157 10^3/uL (150-450); RED BLOOD COUNT 4.58 10^6/uL (4.00-5.40); WHITE BLOOD COUNT 3.7 10^3/uL (4.0-10.0)
[2023-07-19 17:10] LABS: HIV 1&2 SCREEN NEGATIVE (NEGATIVE)
[2023-07-19 17:24] LABS: ERYTHROCYTE SEDIMENTATION RATE 14 mm/hr (0-20)
== END ==
LOC: M PLALAB 12:14
PROVIDERS: ATTEND Internal Medicine Infectious Disease
DX: R16.1 Splenomegaly, not elsewhere classified (principal); M25.50 Pain in unspecified joint; Z86.19 Personal history of other infectious and parasitic diseases

== ENCOUNTER → 2023-08-10 | Outpatient (REF) ==
[~2023-08-10] MED LIST changes: +CLON0.5T2; +DEXTROAMP-AMPHETAMIN
== END ==
LOC: M PLAIMG 09:31
PROVIDERS: ATTEND Internal Medicine
DX: M25.562 Pain in left knee (principal)

== ENCOUNTER → 2023-08-23 | Outpatient (CLI) | payer BC, MEDICAID, OTHER | LOC: M WHC 11:41 | PROVIDERS: ATTEND Physician Assistant Medical | DX: R10.2 Pelvic and perineal pain (principal); Z97.5 Presence of (intrauterine) contraceptive device ==

== ENCOUNTER → 2023-08-24 | Outpatient (CLI) | payer BC, MEDICAID | LOC: M RAD 12:33 | PROVIDERS: ATTEND Registered Nurse | DX: R59.0 Localized enlarged lymph nodes (principal) ==

== ENCOUNTER → 2023-08-30 | Outpatient (CLI) | payer BC, MEDICAID | LOC: M RAD 14:54 | PROVIDERS: ATTEND Registered Nurse | DX: M79.601 Pain in right arm (principal) ==

== ENCOUNTER → 2023-12-01 | Outpatient (CLI) | payer BC, MEDICAID | LOC: M OUTALCOH 08:57 | PROVIDERS: ATTEND Psychiatry & Neurology Psychiatry | DX: F10.10 Alcohol abuse, uncomplicated (principal) ==

== ENCOUNTER 2023-12-08 16:00 | Outpatient (RCR) | payer BC, MEDICAID | END 2023-12-09 | LOC: M OUTALCOH 16:00 | PROVIDERS: ATTEND Psychiatry & Neurology Psychiatry | DX: F11.20 Opioid dependence, uncomplicated (principal); F16.20 Hallucinogen dependence, uncomplicated ==

== ENCOUNTER → 2024-02-08 | Outpatient (CLI) | payer BC, MEDICAID ==
[~2024-02-08] MED LIST changes: +DOXY-440 PO; -DOXY-444 PO; -KLON1TAB PO; +KLON1TAB13 PO
== END ==
LOC: M OUTALCOH 09:51
PROVIDERS: ATTEND Psychiatry & Neurology Psychiatry
DX: F11.20 Opioid dependence, uncomplicated (principal); F16.20 Hallucinogen dependence, uncomplicated; Z72.0 Tobacco use

== ENCOUNTER → 2024-02-21 | Outpatient (CLI) | payer BC, OTHER | LOC: M WHC 07:05 | PROVIDERS: ATTEND Internal Medicine Gastroenterology | DX: R94.5 Abnormal results of liver function studies (principal) ==

== ENCOUNTER → 2024-03-10 | Outpatient (RCR) | payer BC, MEDICAID | LOC: M OUTALCOH 02-17 10:00 | PROVIDERS: ATTEND Psychiatry & Neurology Psychiatry | DX: F11.20 Opioid dependence, uncomplicated (principal); F16.20 Hallucinogen dependence, uncomplicated; Z72.0 Tobacco use ==

== ENCOUNTER → 2024-03-16 | Outpatient (CLI) | payer BC, OTHER | LOC: M PLALAB 10:06 | PROVIDERS: ATTEND Internal Medicine Infectious Disease | DX: Z86.19 Personal history of other infectious and parasitic diseases (principal) ==

== ENCOUNTER 2024-04-07 09:55 | Outpatient (RCR) | payer BC, MEDICAID | END 2024-04-09 | LOC: M OUTALCOH 09:55 | PROVIDERS: ATTEND Psychiatry & Neurology Psychiatry | DX: F11.20 Opioid dependence, uncomplicated (principal); F16.20 Hallucinogen dependence, uncomplicated; Z72.0 Tobacco use ==

== ENCOUNTER → 2024-05-10 | Outpatient (RCR) | payer BC, MEDICAID ==
[~2024-05-10] MED LIST changes: -BUPR450T PO; +BUPR450T4 PO
== END ==
LOC: M OUTALCOH 04-20 15:09
PROVIDERS: ATTEND Psychiatry & Neurology Psychiatry
DX: F11.20 Opioid dependence, uncomplicated (principal); F16.20 Hallucinogen dependence, uncomplicated; Z72.0 Tobacco use

== ENCOUNTER 2024-06-07 16:00 | Outpatient (RCR) | payer BC, MEDICAID ==
[~2024-06-07 16:00] MED LIST changes: +GABA-1635 PO; -GABA800T4 PO
== END 2024-06-10 ==
LOC: M OUTALCOH 16:00
PROVIDERS: ATTEND Psychiatry & Neurology Psychiatry
DX: F11.20 Opioid dependence, uncomplicated (principal); F16.20 Hallucinogen dependence, uncomplicated; Z72.0 Tobacco use

== ENCOUNTER 2024-07-05 14:00 | Outpatient (RCR) | payer BC, MEDICAID | END 2024-07-10 | LOC: M OUTALCOH 14:00 | PROVIDERS: ATTEND Psychiatry & Neurology Psychiatry | DX: F11.20 Opioid dependence, uncomplicated (principal); F16.20 Hallucinogen dependence, uncomplicated; Z72.0 Tobacco use ==

== ENCOUNTER → 2024-08-29 | Outpatient (CLI) | payer OTHER ==
[~2024-08-29] MED LIST changes: +GABA-1172 PO; -GABA-282 PO; +NOXI1TAB PO
[2024-08-29 15:20] LABS: URIC ACID 5.4 MG/DL (3.1-7.8)
[2024-08-29 15:22] LABS: C REACTIVE PROTEIN QUANTITATIV < 0.40 MG/DL (<1.0)
[2024-08-29 15:25] LABS: RHEUMATOID FACTOR QUANT 3.6 IU/ML (<14)
[2024-08-30 12:22] LABS: CYCLIC CITRULLINATED PEPTIDE < 16 UNITS (<20)
[2024-08-30 15:24] LABS: HCV RNA QUANTITATION <15 NOT DETECTED IU/mL (NOT DETECTED); HCV RNA log10 <1.18 NOT DETECTED Log IU/mL (NOT DETECTED)
== END ==
LOC: M PLALAB 11:31
PROVIDERS: ATTEND Internal Medicine Infectious Disease
DX: M25.50 Pain in unspecified joint (principal); Z86.19 Personal history of other infectious and parasitic diseases

== ENCOUNTER → 2024-09-04 | Outpatient (CLI) | payer OTHER ==
[2024-09-04 13:10] LABS: COMPLEMENT C3 70.1 MG/DL (84.0-160.0); COMPLEMENT C4 5.3 MG/DL (12-36)
[2024-09-04 13:12] LABS: APPEARANCE, URINE CLEAR (CLEAR); BACTERIA, URINE AUTO 1+ (NEGATIVE); BILIRUBIN, URINE AUTO NEGATIVE (NEGATIVE); BLOOD, URINE BLOOD NEGATIVE (NEGATIVE); COLOR, URINE YELLOW (YELLOW); GLUCOSE, URINE (UA) AUTO NEGATIVE (NEGATIVE); KETONE, URINE AUTO NEGATIVE (NEGATIVE); LEUKOCYTE ESTERASE, URINE AUTO NEGATIVE (NEGATIVE); MUCUS, URINE SMALL (NEGATIVE); NITRITE, URINE AUTO NEGATIVE (NEGATIVE); PROTEIN, URINE AUTO NEGATIVE (NEGATIVE); RBC, URINE AUTO 2 /HPF (0-3); SPECIFIC GRAVITY URINE AUTO 1.017 (1.002-1.035); SQUAMOUS EPITHELIAL CELL UR AU 0 /HPF (0-6); WBC, URINE AUTO 2 /HPF (0-3)
[2024-09-04 13:22] LABS: TOTAL PROTEIN,RANDOM URINE 10.8 MG/DL (0.0-14.0)
[2024-09-06 03:17] LABS: RNP ANTIBODY <1.0 NEG AI (<1.0 NEG); SM ANTIBODY <1.0 NEG AI (<1.0 NEG); SSA SJOGRENS A <1.0 NEG AI (<1.0 NEG); SSB SJOGRENS B <1.0 NEG AI (<1.0 NEG)
== END ==
LOC: M PLALAB 09:38
PROVIDERS: ATTEND Internal Medicine Infectious Disease
DX: M25.50 Pain in unspecified joint (principal)

== ENCOUNTER 2024-09-05 10:00 | Outpatient (RCR) | payer OTHER | END 2024-09-09 | LOC: M OUTALCOH 10:00 | PROVIDERS: ATTEND Psychiatry & Neurology Psychiatry | DX: F11.20 Opioid dependence, uncomplicated (principal); F16.20 Hallucinogen dependence, uncomplicated; Z72.0 Tobacco use ==

== ENCOUNTER 2024-09-26 10:00 | Outpatient (RCR) | payer OTHER | END 2024-10-10 | LOC: M OUTALCOH 10:00 | PROVIDERS: ATTEND Psychiatry & Neurology Psychiatry | DX: F11.20 Opioid dependence, uncomplicated (principal); F16.20 Hallucinogen dependence, uncomplicated; Z72.0 Tobacco use ==

== ENCOUNTER 2024-11-07 10:00 | Outpatient (RCR) | payer OTHER | END 2024-11-10 | LOC: M OUTALCOH 10:00 | PROVIDERS: ATTEND Psychiatry & Neurology Psychiatry | DX: F11.20 Opioid dependence, uncomplicated (principal); F16.20 Hallucinogen dependence, uncomplicated ==

== ENCOUNTER → 2024-11-17 | Outpatient (REF) | payer OTHER | LOC: M SFHCRHEU 13:38 | PROVIDERS: ATTEND Internal Medicine Rheumatology | DX: R76.8 Other specified abnormal immunological findings in serum (principal); R52 Pain, unspecified; R20.2 Paresthesia of skin; R51.9 Headache, unspecified; R09.89 Other specified symptoms and signs involving the circulatory and respiratory systems; H53.8 Other visual disturbances; R68.89 Other general symptoms and signs; F17.298 Nicotine dependence, other tobacco product, with other nicotine-induced disorders; R77.8 Other specified abnormalities of plasma proteins; D69.6 Thrombocytopenia, unspecified ==

== ENCOUNTER 2024-11-28 11:00 | Outpatient (RCR) | payer OTHER | END 2024-12-08 | LOC: M OUTALCOH 11:00 | PROVIDERS: ATTEND Psychiatry & Neurology Psychiatry | DX: F11.20 Opioid dependence, uncomplicated (principal); F16.20 Hallucinogen dependence, uncomplicated ==

== ENCOUNTER → 2024-12-20 | Outpatient (REF) | payer OTHER ==
[2024-12-20 15:42] LABS: APPEARANCE, URINE CLEAR (CLEAR); BACTERIA, URINE AUTO NEGATIVE (NEGATIVE); BILIRUBIN, URINE AUTO NEGATIVE (NEGATIVE); BLOOD, URINE BLOOD NEGATIVE (NEGATIVE); COLOR, URINE YELLOW (YELLOW); GLUCOSE, URINE (UA) AUTO NEGATIVE (NEGATIVE); KETONE, URINE AUTO NEGATIVE (NEGATIVE); LEUKOCYTE ESTERASE, URINE AUTO NEGATIVE (NEGATIVE); MUCUS, URINE SMALL (NEGATIVE); NITRITE, URINE AUTO NEGATIVE (NEGATIVE); PROTEIN, URINE AUTO NEGATIVE (NEGATIVE); RBC, URINE AUTO 0 /HPF (0-3); SPECIFIC GRAVITY URINE AUTO 1.026 (1.002-1.035); SQUAMOUS EPITHELIAL CELL UR AU 1 /HPF (0-6); WBC, URINE AUTO 1 /HPF (0-3)
[2024-12-20 16:11] LABS: TOTAL PROTEIN,RANDOM URINE 14.7 MG/DL (0.0-14.0)
[2024-12-20 16:15] LABS: CREATININE,RANDOM URINE 125.6 MG/DL
[2024-12-20 18:13] LABS: ALBUMIN 3.9 G/DL (3.2-5.2); ALKALINE PHOSPHATASE 57 U/L (35-104); ALT/SGPT 55 U/L (7.0-40); AST/SGOT 77 U/L (<34); BILIRUBIN,TOTAL 0.3 MG/DL (0.3-1.2); BLOOD UREA NITROGEN 26 MG/DL (9-23); C REACTIVE PROTEIN QUANTITATIV < 0.50 MG/DL (<1.0); CALCIUM LEVEL 8.6 MG/DL (8.5-10.1); CARBON DIOXIDE LEVEL 29 MMOL/L (20-31); CHLORIDE LEVEL 103 MMOL/L (98-107); COMPLEMENT C3 69.1 MG/DL (84.0-160.0); COMPLEMENT C4 6.1 MG/DL (12-36); GLOMERULAR FILTRATION RATE > 60.0 (>60); GLUCOSE, FASTING 114 MG/DL (60-100); POTASSIUM SERUM 4.2 MMOL/L (3.5-5.1); SODIUM LEVEL 142 MMOL/L (136-145); TOTAL PROTEIN 6.8 G/DL (5.7-8.2)
[2024-12-20 18:21] LABS: BASO % 0.3 % (0.0-1.0); HEMATOCRIT 36.1 % (36.0-47.0); HEMOGLOBIN 11.7 g/dl (12.0-15.5); LYMPH # 0.8 10^3/uL (1.5-5.0); LYMPH % 26.4 % (24.0-44.0); MEAN CORPUSCULAR HEMOGLOBIN 27.5 pg (27.0-33.0); MEAN CORPUSCULAR HGB CONC 32.4 g/dl (32.0-36.5); MEAN CORPUSCULAR VOLUME 84.9 fl (80.0-96.0); MONO # 0.2 10^3/uL (0.0-0.8); MONO % 7.5 % (2.0-8.0); NEUTROPHILS # 1.9 10^3/uL (1.5-8.5); NEUTROPHILS % 65.5 % (36.0-66.0); RED BLOOD COUNT 4.25 10^6/uL (4.00-5.40)
[2024-12-20 18:55] LABS: PLATELET COUNT, AUTOMATED 86 10^3/uL (150-450)
[2024-12-20 18:59] LABS: ERYTHROCYTE SEDIMENTATION RATE 6 mm/hr (0-20)
== END ==
LOC: M SFHCRHEU 13:08
PROVIDERS: ATTEND Internal Medicine Rheumatology
DX: R76.8 Other specified abnormal immunological findings in serum (principal); R20.2 Paresthesia of skin; R51.9 Headache, unspecified; R09.89 Other specified symptoms and signs involving the circulatory and respiratory systems; H53.8 Other visual disturbances; R68.89 Other general symptoms and signs; F17.298 Nicotine dependence, other tobacco product, with other nicotine-induced disorders; R77.8 Other specified abnormalities of plasma proteins; D69.6 Thrombocytopenia, unspecified

== ENCOUNTER → 2024-12-22 | Outpatient (REF) | payer OTHER, MEDICAID ==
[2024-12-22 14:42] LABS: HEMOGLOBIN A1c 5.2 % (4.0-6.0)
[2024-12-22 14:47] LABS: ALBUMIN 3.8 G/DL (3.2-5.2); ALKALINE PHOSPHATASE 59 U/L (35-104); ALT/SGPT 38 U/L (7.0-40); AST/SGOT 62 U/L (<34); BILIRUBIN,TOTAL 0.4 MG/DL (0.3-1.2); BLOOD UREA NITROGEN 24 MG/DL (9-23); CALCIUM LEVEL 8.7 MG/DL (8.5-10.1); CARBON DIOXIDE LEVEL 29 MMOL/L (20-31); CHLORIDE LEVEL 107 MMOL/L (98-107); CHOLESTEROL LEVEL 124 MG/DL (<200); CHOLESTEROL RISK RATIO 2.72 (<5); CREATININE FOR GFR 0.81 MG/DL (0.55-1.30); GLOMERULAR FILTRATION RATE > 60.0 (>60); GLUCOSE, FASTING 74 MG/DL (60-100); HDL CHOLESTEROL 45.5 MG/DL (>40); LDL CHOLESTEROL 71.5 MG/DL (<100); NON-HDL-C 78.5 MG/DL; POTASSIUM SERUM 4.5 MMOL/L (3.5-5.1); SODIUM LEVEL 141 MMOL/L (136-145); TOTAL PROTEIN 6.6 G/DL (5.7-8.2); TRIGLYCERIDES LEVEL 35 MG/DL (<150)
[2024-12-22 14:49] LABS: THYROID STIMULATING HORMONE 3.935 uIU/ML (0.55-4.78)
== END ==
LOC: M LAB REF 12:40
PROVIDERS: ATTEND Student in an Organized Health Care Education/Training Program
DX: Z68.26 Body mass index [BMI] 26.0-26.9, adult (principal)

== ENCOUNTER → 2025-01-08 | Outpatient (RCR) | payer OTHER, MEDICAID | LOC: M OUTALCOH 01-02 10:48 | PROVIDERS: ATTEND Psychiatry & Neurology Psychiatry | DX: F11.20 Opioid dependence, uncomplicated (principal); F16.20 Hallucinogen dependence, uncomplicated; Z72.0 Tobacco use ==

== ENCOUNTER 2025-02-05 16:00 | Outpatient (RCR) | payer OTHER, MEDICAID ==
[~2025-02-05 16:00] MED LIST changes: +BUPR150T15 PO; -BUPR1TAB53 PO
== END 2025-02-07 ==
LOC: M OUTALCOH 16:00
PROVIDERS: ATTEND Psychiatry & Neurology Psychiatry
DX: F11.20 Opioid dependence, uncomplicated (principal); F16.20 Hallucinogen dependence, uncomplicated

== ENCOUNTER 2025-02-07 10:56 | Emergency (ER) | payer MEDICAID, OTHER ==
[~2025-02-07] VITALS: Ht 160 cm; Wt 69.9 kg
[2025-02-07 12:28] LABS: BASO % 0.4 % (0.0-1.0); HEMATOCRIT 37.9 % (36.0-47.0); HEMOGLOBIN 12.4 g/dl (12.0-15.5); LYMPH # 0.6 10^3/uL (1.5-5.0); LYMPH % 27.1 % (24.0-44.0); MEAN CORPUSCULAR HEMOGLOBIN 27.7 pg (27.0-33.0); MEAN CORPUSCULAR HGB CONC 32.7 g/dl (32.0-36.5); MEAN CORPUSCULAR VOLUME 84.6 fl (80.0-96.0); MONO # 0.2 10^3/uL (0.0-0.8); NEUTROPHILS # 1.5 10^3/uL (1.5-8.5); NEUTROPHILS % 65.1 % (36.0-66.0); RED BLOOD COUNT 4.48 10^6/uL (4.00-5.40); WHITE BLOOD COUNT 2.3 10^3/uL (4.0-10.0)
[2025-02-07 12:30] LABS: PLATELET COUNT, AUTOMATED 87 10^3/uL (150-450)
[2025-02-07 12:42] LABS: ERYTHROCYTE SEDIMENTATION RATE 8 mm/hr (0-20)
[2025-02-07 13:15] LABS: C REACTIVE PROTEIN QUANTITATIV < 0.50 MG/DL (<1.0)
[2025-02-07 13:16] LABS: ALKALINE PHOSPHATASE 57 U/L (35-104); ALT/SGPT 35 U/L (7.0-40); AST/SGOT 69 U/L (<34); BILIRUBIN,TOTAL 0.4 MG/DL (0.3-1.2); BLOOD UREA NITROGEN 23 MG/DL (9-23); CALCIUM LEVEL 8.3 MG/DL (8.5-10.1); CARBON DIOXIDE LEVEL 27 MMOL/L (20-31); CHLORIDE LEVEL 106 MMOL/L (98-107); CK-MB VALUE MASS 1.8 NG/ML (<3.6); CREATININE FOR GFR 0.87 MG/DL (0.55-1.30); GLOMERULAR FILTRATION RATE 87.4 (>60); GLUCOSE, FASTING 82 MG/DL (60-100); POTASSIUM SERUM 4.2 MMOL/L (3.5-5.1); SODIUM LEVEL 141 MMOL/L (136-145); TOTAL PROTEIN 6.7 G/DL (5.7-8.2)
[2025-02-07 13:18] LABS: CPK CREATINE PHOSPHOKINASE 184 U/L (34-145); MB/CK RELATIVE INDEX 0.97 (< OR =4)
[2025-02-07 14:04] VITALS: BP 105/63; TEMP 98.1; O2SAT 100
== END 2025-02-07 14:10 | disposition home or self-care (01) ==
LOC: M ED 10:56
DX: R07.9 Chest pain, unspecified (principal); D69.6 Thrombocytopenia, unspecified; F43.10 Post-traumatic stress disorder, unspecified; F90.9 Attention-deficit hyperactivity disorder, unspecified type; Z79.899 Other long term (current) drug therapy

== ENCOUNTER → 2025-02-07 | Outpatient (REF) | payer OTHER ==
[2025-02-07 15:38] LABS: ALKALINE PHOSPHATASE 57 U/L (35-104); ALT/SGPT 32 U/L (7.0-40); AST/SGOT 64 U/L (<34); BILIRUBIN,TOTAL 0.4 MG/DL (0.3-1.2); BLOOD UREA NITROGEN 24 MG/DL (9-23); CALCIUM LEVEL 8.6 MG/DL (8.5-10.1); CARBON DIOXIDE LEVEL 29 MMOL/L (20-31); CHLORIDE LEVEL 105 MMOL/L (98-107); CREATININE FOR GFR 0.95 MG/DL (0.55-1.30); GLOMERULAR FILTRATION RATE 78.7 (>60); GLUCOSE, FASTING 82 MG/DL (60-100); POTASSIUM SERUM 4.9 MMOL/L (3.5-5.1); SODIUM LEVEL 141 MMOL/L (136-145); TOTAL PROTEIN 6.8 G/DL (5.7-8.2)
[2025-02-07 15:56] LABS: HEPATITIS B SURFACE ANTIGEN NEGATIVE (NEGATIVE)
[2025-02-07 16:18] LABS: HEPATITIS B CORE ANTIBODY IGM NEGATIVE (NEGATIVE)
== END ==
LOC: M LAB REF 14:20
PROVIDERS: ATTEND Student in an Organized Health Care Education/Training Program
DX: R74.01 Elevation of levels of liver transaminase levels (principal)

== ENCOUNTER 2025-04-16 08:10 | Outpatient (RCR) | payer OTHER ==
[~2025-04-16 08:10] MED LIST changes: +BUPR-766 PO; +CETI-24 PO; -CLON0.5T2; +CLON0.5T2 PO; +FLON1SPR; +IBUP1TAB6 PO; +LINZ145C PO; +LINZ290C PO; +MELO15TA28 PO; +OMEP40CA5 PO; +POLY510P14 PO; +VITA100093 PO
== END 2025-05-10 ==
LOC: M OUTALCOH 08:10
PROVIDERS: ATTEND Psychiatry & Neurology Psychiatry
DX: F11.20 Opioid dependence, uncomplicated (principal); F16.20 Hallucinogen dependence, uncomplicated; Z72.0 Tobacco use

== ENCOUNTER 2025-04-18 00:04 | Emergency (ER) | payer OTHER ==
[~2025-04-18] VITALS: Ht 160 cm; Wt 67.0 kg
[2025-04-18 00:07] VITALS: BP 106/59; TEMP 98.2; O2SAT 99
[2025-04-18] MEDS ORDERED: ISOVUE-370 76% 100 ML VIAL As Ordered ONE (04:17)
== END 2025-04-18 04:22 | disposition left against medical advice (07) ==
LOC: M ED 00:04
DX: M25.561 Pain in right knee (principal); M25.461 Effusion, right knee; Z98.84 Bariatric surgery status; Z79.899 Other long term (current) drug therapy; Z79.2 Long term (current) use of antibiotics; Z91.048 Other nonmedicinal substance allergy status; Z53.9 Procedure and treatment not carried out, unspecified reason

== ENCOUNTER → 2025-04-20 | Outpatient (CLI) | payer OTHER ==
[2025-04-20 10:01] LABS: PLATELET COUNT, AUTOMATED 134 10^3/uL (150-450)
== END ==
LOC: M LAB 08:15
PROVIDERS: ATTEND Physician Assistant Medical
DX: D69.6 Thrombocytopenia, unspecified (principal)

== ENCOUNTER 2025-07-02 10:59 | Outpatient (RCR) | payer OTHER ==
[~2025-07-02 10:59] MED LIST changes: -IBUP-1022 PO; -IBUP1TAB6 PO; +IBUP600T42 PO; -LUMA42CA PO; +LUMA42CA4 PO; +SFHIBU600 PO
== END 2025-07-10 ==
LOC: M OUTALCOH 10:59
PROVIDERS: ATTEND Psychiatry & Neurology Psychiatry
DX: F11.20 Opioid dependence, uncomplicated (principal); F16.20 Hallucinogen dependence, uncomplicated

== ENCOUNTER 2025-08-22 02:44 | Inpatient (IN) | payer OTHER ==
[~2025-08-22] VITALS: Ht 160 cm; Wt 65.0 kg
[~2025-08-22 02:44] MED LIST changes: -FLON1SPR; +FLON1SPR NARES
[2025-08-22 03:39] LABS: PLATELET COUNT, AUTOMATED 159 10^3/uL (150-450)
[2025-08-22 04:17] LABS: ALT/SGPT 120 U/L (7.0-40); AST/SGOT 267 U/L (<34); CALCIUM LEVEL 8.8 MG/DL (8.5-10.1); CARBON DIOXIDE LEVEL 27 MMOL/L (20-31); CHLORIDE LEVEL 103 MMOL/L (98-107); CREATININE FOR GFR 0.84 MG/DL (0.55-1.30); ETHYL ALCOHOL (ETHANOL) < 0.003 % (0.000-0.010); GLOMERULAR FILTRATION RATE > 90.0 (>60); POTASSIUM SERUM 3.4 MMOL/L (3.5-5.1); SALICYLATE LEVEL < 3.0 MG/DL (<30); SODIUM LEVEL 142 MMOL/L (136-145)
[2025-08-22 04:29] LABS: CK-MB VALUE MASS 28.1 NG/ML (<3.6)
[2025-08-22 04:30] LABS: CPK CREATINE PHOSPHOKINASE 519 U/L (34-145); MB/CK RELATIVE INDEX 5.41 (< OR =4)
[2025-08-22 04:37] LABS: BARBITURATES URINE NEGATIVE (NEGATIVE); BENZODIAZEPINES URINE NEGATIVE (NEGATIVE)
[2025-08-22 04:38] LABS: CANNABINOIDS URINE NEGATIVE (NEGATIVE); COCAINE METABOLITE URINE NEGATIVE (NEGATIVE); METHADONE URINE NEGATIVE (NEGATIVE); OPIATES URINE NEGATIVE (NEGATIVE); PHENCYCLIDINE URINE NEGATIVE (NEGATIVE)
[2025-08-22 04:46] LABS: AMPHETAMINES LEVEL URINE POSITIVE (NEGATIVE)
[2025-08-22 06:40] LABS: CK-MB VALUE MASS 28.1 NG/ML (<3.6)
[2025-08-22 06:44] LABS: CPK CREATINE PHOSPHOKINASE 535.0 U/L (34-145); MB/CK RELATIVE INDEX 5.25 (< OR =4)
[2025-08-22 07:20] LABS: HCG, SERUM QUALITATIVE NEGATIVE (NEGATIVE)
[2025-08-22] MEDS ORDERED: ADDE30CA3 PO (09:03)
[2025-08-22] MEDS ORDERED: TRIA1CR80 TOP (09:03)
[2025-08-22] MEDS ORDERED: GABA-1171 PO (09:03)
[2025-08-22] MEDS ORDERED: SUBO12MI SL (09:03)
[2025-08-22] MEDS ORDERED: ACET-683 PO (09:03)
[2025-08-22] MEDS ORDERED: D200CAP3 PO (09:04)
[2025-08-22] MEDS ORDERED: HOME MED LIST COMPLETE! XX SCH (09:05)
[2025-08-22] MEDS ORDERED: HALOPERIDOL 5 MG TAB PO PRN (09:25)
[2025-08-22] MEDS ORDERED: MAALOX 30 ML SUSP *UDC PO PRN (09:25)
[2025-08-22] MEDS ORDERED: IBUPROFEN 400 MG TAB PO PRN (09:25)
[2025-08-22] MEDS ORDERED: LORazepam 1 MG TAB PO PRN (09:25)
[2025-08-22] MEDS: NICOTINE 14 MG/24 HR TRANSDERMAL TD SCH (10:25)
[2025-08-22] MEDS: BUPRENORPHINE/NALOXONE 8-2MG SUBLINGUAL TABLET(SUBOXONE) SL SCH ×2 (10:25→16:52)
[2025-08-22] MEDS: buPROPion **XL** 150 MG TABLET PO SCH (10:25)
[2025-08-22] MEDS: GABAPENTIN 100 MG CAP PO SCH (10:25)
[2025-08-22] MEDS ORDERED: BUPRENORPHINE/NALOXONE 8-2MG SUBLINGUAL TABLET(SUBOXONE) SL SCH (12:44)
[2025-08-22] MEDS: clonazePAM 0.5 MG TAB PO PRN (14:33)
[2025-08-22] MEDS: ACETAMINOPHEN 325 MG TAB PO PRN (14:34)
[2025-08-22 16:21] VITALS: BP 117/71; TEMP 97.7; O2SAT 100
[2025-08-22] MEDS: traZODone 50 MG TAB PO PRN (20:29)
[2025-08-22] MEDS: OLANZapine 5 MG TAB PO SCH (20:29)
[2025-08-23 06:33] VITALS: BP 136/65; TEMP 97.6; O2SAT 97
[2025-08-23] MEDS: DOCUSATE SODIUM 100 MG CAPSULE PO SCH (09:17)
[2025-08-23] MEDS: MOM 30 ML SUSPENSION UDC PO PRN (10:36)
[2025-08-23] MEDS: POTASSIUM CHLORIDE 10MEQ SR TABLET PO ONE (15:27)
[2025-08-23 16:04] VITALS: BP 107/63; TEMP 98.3; O2SAT 95
[2025-08-23] MEDS: OLANZapine 5 MG TAB PO PRN (19:17)
[2025-08-24 06:31] VITALS: BP 139/63; TEMP 97.1; O2SAT 100
[2025-08-24 07:27] LABS: CHOLESTEROL LEVEL 99.0 MG/DL (<200); CHOLESTEROL RISK RATIO 2.13 (<5); LDL CHOLESTEROL 46.3 MG/DL (<100); NON-HDL-C 52.7 MG/DL; TRIGLYCERIDES LEVEL 32.0 MG/DL (<150)
[2025-08-24] MEDS ORDERED: GABA-1171 PO (09:13)
[2025-08-24] MEDS ORDERED: OLAN1TAB16 PO (09:13)
[2025-08-25] MEDS ORDERED: OLAN1TAB16 PO (08:15)
[2025-08-25] MEDS ORDERED: COLA100C5 PO (09:30)
== END 2025-08-24 13:33 | disposition home or self-care (01) | DRG 751 ==
LOC: M ED 02:44 → M ED INP 09:25 → M PSY 11:05
PROVIDERS: ADMIT Internal Medicine; ATTEND Internal Medicine
DX: F29 Unspecified psychosis not due to a substance or known physiological condition (principal); Z91.148 Patient's other noncompliance with medication regimen for other reason; F31.9 Bipolar disorder, unspecified; F43.10 Post-traumatic stress disorder, unspecified; F15.90 Other stimulant use, unspecified, uncomplicated; Z79.899 Other long term (current) drug therapy; G43.909 Migraine, unspecified, not intractable, without status migrainosus; Z87.891 Personal history of nicotine dependence

== ENCOUNTER 2025-08-25 03:42 | Emergency (ER) | payer OTHER, MEDICAID ==
[~2025-08-25] VITALS: Ht 160 cm; Wt 68.0 kg
[~2025-08-25 03:42] MED LIST changes: +ACET-683 PO; +D200CAP3 PO; +GABA-1171 PO; +OLAN1TAB16 PO; +SUBO12MI SL; +TRIA1CR80 TOP
[2025-08-25 05:12] LABS: BASO # 0.0 10^3/uL (0.0-0.2); BASO % 0.3 % (0.0-1.0); EOS # 0.0 10^3/uL (0.0-0.5); EOS % 0.0 % (0.0-3.0); LYMPH # 0.8 10^3/uL (1.5-5.0); LYMPH % 12.6 % (24.0-44.0); MONO # 0.4 10^3/uL (0.0-0.8); MONO % 6.9 % (2.0-8.0); NEUTROPHILS # 4.8 10^3/uL (1.5-8.5); NEUTROPHILS % 80.0 % (36.0-66.0); PLATELET COUNT, AUTOMATED 162 10^3/uL (150-450)
[2025-08-25 05:33] LABS: CK-MB VALUE MASS 5.3 NG/ML (<3.6)
[2025-08-25 05:34] LABS: C REACTIVE PROTEIN QUANTITATIV < 0.50 MG/DL (<1.0); CALCIUM LEVEL 8.5 MG/DL (8.5-10.1); CARBON DIOXIDE LEVEL 29 MMOL/L (20-31); CHLORIDE LEVEL 104 MMOL/L (98-107); CREATININE FOR GFR 0.76 MG/DL (0.55-1.30); GLOMERULAR FILTRATION RATE > 90.0 (>60); INR 0.94; POTASSIUM SERUM 4.1 MMOL/L (3.5-5.1); SODIUM LEVEL 142 MMOL/L (136-145)
[2025-08-25 05:40] LABS: HCG, SERUM QUALITATIVE NEGATIVE (NEGATIVE)
[2025-08-25 05:41] LABS: CPK CREATINE PHOSPHOKINASE 137 U/L (34-145); MB/CK RELATIVE INDEX 3.86 (< OR =4)
[2025-08-25 07:01] LABS: ETHYL ALCOHOL (ETHANOL) < 0.003 % (0.000-0.010)
[2025-08-25 07:02] LABS: SALICYLATE LEVEL < 3.0 MG/DL (<30)
[2025-08-25 07:31] LABS: CK-MB VALUE MASS 5.3 NG/ML (<3.6)
[2025-08-25 07:43] LABS: CPK CREATINE PHOSPHOKINASE 123 U/L (34-145); MB/CK RELATIVE INDEX 4.30 (< OR =4)
[2025-08-25 08:00] VITALS: BP 107/73
[2025-08-25] MEDS ORDERED: OLAN1TAB16 PO (08:15)
[2025-08-25] MEDS ORDERED: HOME MED LIST COMPLETE! XX SCH (08:20)
[2025-08-25 08:45] VITALS: TEMP 97.5; O2SAT 100
[2025-08-25] MEDS: KETOROLAC 30 MG/ML 1 ML VIAL IV ONE (08:50)
[2025-08-25] MEDS ORDERED: COLA100C5 PO (09:30)
== END 2025-08-25 10:20 | disposition home or self-care (01) ==
LOC: M ED 03:42
DX: K62.3 Rectal prolapse (principal); R00.1 Bradycardia, unspecified; F41.9 Anxiety disorder, unspecified; F32.A Depression, unspecified; F31.9 Bipolar disorder, unspecified; F19.10 Other psychoactive substance abuse, uncomplicated; Z91.09 Other allergy status, other than to drugs and biological substances; Z79.1 Long term (current) use of non-steroidal anti-inflammatories (NSAID); Z79.899 Other long term (current) drug therapy

== ENCOUNTER 2025-08-25 14:44 | Inpatient (IN) | payer MEDICAID, OTHER ==
[~2025-08-25] VITALS: Ht 160 cm; Wt 57.9 kg
[~2025-08-25 14:44] MED LIST changes: +COLA100C5 PO
[2025-08-25] MEDS ORDERED: HOME MED LIST COMPLETE! XX SCH (15:35)
[2025-08-25 15:54] LABS: PLATELET COUNT, AUTOMATED 151 10^3/uL (150-450)
[2025-08-25 16:22] LABS: ETHYL ALCOHOL (ETHANOL) < 0.003 % (0.000-0.010)
[2025-08-25 16:24] LABS: ALT/SGPT 59 U/L (7.0-40); AST/SGOT 112 U/L (<34); CALCIUM LEVEL 8.3 MG/DL (8.5-10.1); CARBON DIOXIDE LEVEL 28 MMOL/L (20-31); CHLORIDE LEVEL 103 MMOL/L (98-107); CREATININE FOR GFR 0.73 MG/DL (0.55-1.30); GLOMERULAR FILTRATION RATE > 90.0 (>60); POTASSIUM SERUM 3.9 MMOL/L (3.5-5.1); SALICYLATE LEVEL < 3.0 MG/DL (<30); SODIUM LEVEL 139 MMOL/L (136-145)
[2025-08-25 16:30] LABS: HCG, SERUM QUALITATIVE NEGATIVE (NEGATIVE)
[2025-08-25 17:15] LABS: BARBITURATES URINE NEGATIVE (NEGATIVE); BENZODIAZEPINES URINE NEGATIVE (NEGATIVE); CANNABINOIDS URINE NEGATIVE (NEGATIVE); COCAINE METABOLITE URINE NEGATIVE (NEGATIVE); METHADONE URINE NEGATIVE (NEGATIVE); OPIATES URINE NEGATIVE (NEGATIVE); PHENCYCLIDINE URINE NEGATIVE (NEGATIVE)
[2025-08-25 17:18] LABS: AMPHETAMINES LEVEL URINE POSITIVE (NEGATIVE)
[2025-08-25] MEDS ORDERED: clonazePAM 0.5 MG TAB PO PRN (18:05)
[2025-08-25] MEDS ORDERED: IBUPROFEN 600 MG TAB PO PRN (18:05)
[2025-08-25] MEDS ORDERED: ACETAMINOPHEN 500 MG TAB PO PRN (18:05)
[2025-08-25] MEDS ORDERED: MOM 30 ML SUSPENSION UDC PO PRN (18:15)
[2025-08-25] MEDS ORDERED: MAALOX 30 ML SUSP *UDC PO PRN (18:15)
[2025-08-25] MEDS ORDERED: ACETAMINOPHEN 325 MG TAB PO PRN (18:15)
[2025-08-25] MEDS: clonazePAM 0.5 MG TAB PO PRN (19:06)
[2025-08-25] MEDS ORDERED: PILL CUTTER 1 EACH XX ONE (20:19)
[2025-08-25] MEDS: OLANZapine 5 MG TAB PO SCH (20:24)
[2025-08-25] MEDS: GABAPENTIN 100 MG CAP PO SCH (20:24)
[2025-08-25] MEDS: BUPRENORPHINE/NALOXONE 8-2MG SUBLINGUAL TABLET(SUBOXONE) SL SCH (20:25)
[2025-08-25] MEDS: TRIAMCINOLONE ACET 0.1% CREAM 80GM TOP SCH (20:28)
[2025-08-25] MEDS ORDERED: GABAPENTIN 100 MG CAP PO SCH (21:00)
[2025-08-25] MEDS ORDERED: OLANZapine 5 MG TAB PO SCH (21:00)
[2025-08-25] MEDS ORDERED: TRIAMCINOLONE ACET 0.1% CREAM 80GM TOP SCH (21:00)
[2025-08-25 21:20] VITALS: BP 116/70; TEMP 97.4; O2SAT 98
[2025-08-26] MEDS ORDERED: UNRESOLVED CLARIFICATION ENTRY XX SCH (00:01)
[2025-08-26] MEDS: DOCUSATE SODIUM 100 MG CAPSULE PO SCH ×2 (08:09→20:26)
[2025-08-26] MEDS: buPROPion **XL** 150 MG TABLET PO SCH (08:09)
[2025-08-26] MEDS ORDERED: OMEPRAZOLE 20MG CAP PO SCH (09:00)
[2025-08-26] MEDS ORDERED: DOCUSATE SODIUM 100 MG CAPSULE PO SCH ×2 (09:00)
[2025-08-26] MEDS ORDERED: BUPRENORPHINE/NALOXONE 8-2MG SUBLINGUAL TABLET(SUBOXONE) SL SCH ×3 (09:00→11:04)
[2025-08-26] MEDS ORDERED: buPROPion **XL** 150 MG TABLET PO SCH (09:00)
[2025-08-26] MEDS ORDERED: FLUTICASONE PROPIONATE 0.05% NASAL SPRAY 16 GM NARES SCH (09:00)
[2025-08-26] MEDS ORDERED: VITAMIN D 1,000 INTERNATIONAL UNITS TABLET PO SCH ×2 (09:00)
[2025-08-26] MEDS: FLUTICASONE PROPIONATE 0.05% NASAL SPRAY 16 GM NARES SCH (11:19)
[2025-08-26] MEDS: PILL CUTTER 1 EACH XX PRN (11:19)
[2025-08-26] MEDS: BUPRENORPHINE/NALOXONE 8-2MG SUBLINGUAL TABLET(SUBOXONE) SL SCH (11:20)
[2025-08-26] MEDS: NICOTINE 21 MG/24 HR 1 EA TRANSDERMAL TD SCH (12:11)
[2025-08-26] MEDS ORDERED: VITAMIN D (CHOLECALCIFEROL) 400 INTERNATIONAL UNITS TAB PO SCH (13:37)
[2025-08-26] MEDS: OMEPRAZOLE 20MG CAP PO SCH (14:23)
[2025-08-26] MEDS: TRIAMCINOLONE ACET 0.1% OINTMENT 80GM TOP SCH (14:24)
[2025-08-26] MEDS: VITAMIN D (CHOLECALCIFEROL) 400 INTERNATIONAL UNITS TAB PO SCH (14:25)
[2025-08-26 15:45] VITALS: BP 104/68; TEMP 99; O2SAT 99
[2025-08-27 06:32] VITALS: BP 117/63; TEMP 98.6; O2SAT 98
[2025-08-27] MEDS: IBUPROFEN 400 MG TAB PO PRN (13:22)
[2025-08-27] MEDS: ACETAMINOPHEN 500 MG TAB PO PRN (15:07)
[2025-08-27] MEDS: clonazePAM 0.5 MG TAB PO PRN (15:09)
[2025-08-27 15:55] VITALS: BP 153/69; TEMP 97.9; O2SAT 97
[2025-08-27 16:12] VITALS: BP 118/63; TEMP 98.9; O2SAT 97
[2025-08-28 08:49] VITALS: BP 129/72; TEMP 98.4; O2SAT 99
[2025-08-28] MEDS: BUPRENORPHINE/NALOXONE 2-0.5MG SUBLINGUAL TABLET(SUBOXONE) SL SCH (14:35)
[2025-08-28] MEDS: BUPRENORPHINE/NALOXONE 8-2MG SUBLINGUAL TABLET(SUBOXONE) SL SCH (14:35)
[2025-08-28 16:40] VITALS: BP 127/70; TEMP 98.1; O2SAT 98
[2025-08-28] MEDS: traZODone 50 MG TAB PO PRN (20:25)
[2025-08-29 06:27] VITALS: BP 101/57; TEMP 98.3; O2SAT 98
[2025-08-29 15:17] VITALS: BP 118/67; TEMP 97.8; O2SAT 99
[2025-08-29] MEDS ORDERED: SENNA 8.6 MG TAB PO PRN (16:25)
[2025-08-29] MEDS ORDERED: MIRALAX *UNIT DOSE* 17 GM PACKET PO PRN (16:25)
[2025-08-30 06:22] VITALS: BP 101/56; TEMP 97.9; O2SAT 97
[2025-08-30 16:31] VITALS: BP 114/63; TEMP 98.7; O2SAT 100
[2025-08-31 06:16] VITALS: BP 123/66; TEMP 97.9; O2SAT 99
[2025-08-31 14:33] VITALS: BP 109/61; TEMP 98.4; O2SAT 100
[2025-09-01 06:18] VITALS: BP 113/53; TEMP 98.1; O2SAT 99
[2025-09-01] MEDS: FLUZONE VACCINE TRI PF(25-26) 0.5ML SYRINGE IM.IMMUN ONE (09:27)
[2025-09-01 15:22] VITALS: BP 113/69; TEMP 98.4; O2SAT 99
[2025-09-02 06:26] VITALS: BP 105/55; TEMP 98.7; O2SAT 99
[2025-09-02 15:28] VITALS: BP 103/60; TEMP 98; O2SAT 100
[2025-09-03 06:45] VITALS: BP 112/70; TEMP 97.7; O2SAT 99
[2025-09-03] MEDS ORDERED: BUPR150T12 PO (10:59)
[2025-09-03] MEDS ORDERED: MIRA33506 PO (10:59)
[2025-09-03] MEDS ORDERED: COLA100C5 PO (10:59)
[2025-09-03] MEDS ORDERED: VITAD400CA PO (10:59)
[2025-09-03] MEDS ORDERED: OMEP-173 PO (10:59)
[2025-09-03] MEDS ORDERED: SENN18TA PO (10:59)
[2025-09-03] MEDS ORDERED: TRAZ-252 PO (10:59)
[2025-09-03] MEDS ORDERED: SUBO12MI SL (12:36)
[2025-09-03] MEDS ORDERED: CLON0.5T2 PO (12:36)
== END 2025-09-03 13:19 | disposition home or self-care (01) | DRG 753 ==
LOC: M ED 14:44 → M ED INP 18:21 → M PSY 21:30
PROVIDERS: ADMIT General Practice; ATTEND General Practice
DX: F31.32 Bipolar disorder, current episode depressed, moderate (principal); Z91.148 Patient's other noncompliance with medication regimen for other reason; R45.851 Suicidal ideations; F41.1 Generalized anxiety disorder; F41.0 Panic disorder [episodic paroxysmal anxiety]; F60.3 Borderline personality disorder; Z87.891 Personal history of nicotine dependence; G43.909 Migraine, unspecified, not intractable, without status migrainosus; Z98.84 Bariatric surgery status; Z79.899 Other long term (current) drug therapy; K62.3 Rectal prolapse

== ENCOUNTER 2025-09-13 04:10 | Emergency (ER) | payer MEDICAID, OTHER ==
[~2025-09-13 04:10] MED LIST changes: +MIRA33506 PO; +OMEP-173 PO; +SENN18TA PO; +VITAD400CA PO
[2025-09-13 05:21] LABS: PLATELET COUNT, AUTOMATED 157 10^3/uL (150-450)
[2025-09-13] MEDS: NS (Normal Saline) 0.9% 1,000 ML IV ONE (05:25)
[2025-09-13 05:43] LABS: ETHYL ALCOHOL (ETHANOL) 0.003 % (0.000-0.010)
[2025-09-13 05:44] LABS: SALICYLATE LEVEL < 3.0 MG/DL (<30)
[2025-09-13 05:45] LABS: ALT/SGPT 94 U/L (7.0-40); AST/SGOT 304 U/L (<34); CALCIUM LEVEL 7.9 MG/DL (8.5-10.1); CARBON DIOXIDE LEVEL 28 MMOL/L (20-31); CHLORIDE LEVEL 104 MMOL/L (98-107); CREATININE FOR GFR 0.77 MG/DL (0.55-1.30); GLOMERULAR FILTRATION RATE > 90.0 (>60); POTASSIUM SERUM 3.4 MMOL/L (3.5-5.1); SODIUM LEVEL 142 MMOL/L (136-145)
[2025-09-13 05:59] LABS: HCG, SERUM QUALITATIVE NEGATIVE (NEGATIVE)
[2025-09-13 07:29] VITALS: TEMP 97
[2025-09-13] MEDS ORDERED: OVERDOSE RESCUE KIT XX SCH (12:20)
[2025-09-13 12:43] VITALS: BP 110/72; O2SAT 99
[2025-09-13 12:49] LABS: BARBITURATES URINE NEGATIVE (NEGATIVE); BENZODIAZEPINES URINE NEGATIVE (NEGATIVE); CANNABINOIDS URINE NEGATIVE (NEGATIVE); COCAINE METABOLITE URINE NEGATIVE (NEGATIVE); METHADONE URINE NEGATIVE (NEGATIVE); OPIATES URINE NEGATIVE (NEGATIVE); PHENCYCLIDINE URINE NEGATIVE (NEGATIVE)
[2025-09-13 12:52] LABS: AMPHETAMINES LEVEL URINE POSITIVE (NEGATIVE)
== END 2025-09-13 12:44 | disposition home or self-care (01) ==
LOC: M ED 04:10
DX: F19.10 Other psychoactive substance abuse, uncomplicated (principal); K62.3 Rectal prolapse; G43.909 Migraine, unspecified, not intractable, without status migrainosus; Z98.84 Bariatric surgery status; S60.221A Contusion of right hand, initial encounter; S60.222A Contusion of left hand, initial encounter; X58.XXXA Exposure to other specified factors, initial encounter; Z79.899 Other long term (current) drug therapy
CPT/HCPCS: 73130; 80048; 80076; 80143; 80307; 82077; 84443; 84703; 85027; 96374; 96375; 99285; J2060; J3010